=== PATIENT | male | born 1945 | race Caucasian/White ===

== ENCOUNTER → 2019-09-22 12:16 | Outpatient (CLI) | payer MEDICARE, SELFPAY ==
--- NOTE | ~2019-09-22 | XR_ITS ---
XR lumbar spine 2-3V DATE: 09/22/2019 13:04 INDICATION: Low back pain TECHNIQUE: AP, lateral and coned lateral lumbosacral views COMPARISON: None FINDINGS: Diffuse osteopenia. No fracture or dislocation. The lumbar and lower thoracic pedicles are intact. No fracture or bone destruction. There is severe degenerative disc disease at L4-5 and L5-S1. Abdominal aortic calcification without apparent aneurysm. Surgical clips are noted in the mid to uppe r medial right abdomen. The sacroiliac joints are normal. IMPRESSION: Severe degenerative disc disease at L4-5 and L5-S1 Reviewed, dictated and finalized at location B.
--- NOTE | ~2019-09-22 | XR_ITS ---
XR hip BI 2V w AP pelvis 09/22/2019 13:04 Indication: Hip pain Procedure: AP pelvis and 2 views of each hip Comparison: No prior studies for comparison. Findings: Pelvic rings are intact. Moderate lower lumbar spondylosis, partially visualized. There is mild osteoarthritis of the hips. Sacral foramen are symmetric. No significant soft tissue abnormality . Impression: 1: Mild osteoarthritis of the hips. Reviewed, dictated and finalized at location A. Impression: 1: Mild osteoarthritis of the hips.
== END ==
PROVIDERS: PCP Family Medicine; Visit Provider Physician Assistant
DX: M16.0 Bilateral primary osteoarthritis of hip (principal); M51.36 Other intervertebral disc degeneration, lumbar region; M51.37 Other intervertebral disc degeneration, lumbosacral region
CPT/HCPCS: 72100; 73521

== ENCOUNTER 2020-04-22 12:21 | Inpatient (IN) | payer MEDICARE, SELFPAY ==
--- NOTE | ~2020-04-22 | US_ITS ---
EXAMINATION: US carotid duplex BI DATE: 04/23/2020 09:39 INDICATION: Dizziness TECHNIQUE: Grayscale, color Doppler, and pulsed Doppler images of the cervical carotid arteries were obtained. The degree of vessel stenosis is placed in one of the following categories: normal, <50%, 5 0-69%, >=70% but less than near-occlusion, near-occlusion, or total occlusion. Note that percent sten osis relative to normal distal artery lumen diameter is indirectly measured from velocity measurement s as described by Dagoberto, et al. Radiology 2003; 229:340-346. COMPARISON: None. FINDINGS: RIGHT: The right common carotid artery (CCA) peak systolic velocity (PSV) is 93 cm/s. The right internal car otid artery (ICA) PSV is 57 cm/s. The right ICA end-diastolic velocity (EDV) is 17 cm/s. The right IC A/CCA PSV ratio is 0.6. Grayscale and color Doppler images yield an estimate of <50% diameter reducti on from plaque in the ICA. The external carotid artery (ECA) PSV is 94 cm/s. There is antegrade flow in the right vertebral artery. LEFT: The left CCA PSV is 111 cm/s. The left ICA PSV is 92 cm/s. The left ICA EDV is 28 cm/s. The left ICA/ CCA PSV ratio is 0.8. Grayscale and color Doppler images yield an estimate of <50% diameter reduction from plaque in the ICA. The ECA PSV is 81 cm/s. There is antegrade flow in the left vertebral artery . IMPRESSION: 1. <50% stenosis in the right internal carotid artery. 2. <50% stenosis in the left internal carotid artery. Reviewed, dictated and finalized at location A.
--- NOTE | ~2020-04-22 | CT_ITS ---
EXAMINATION: CT brain wo con EXAM DATE: 04/22/2020 13:58 INDICATION: Dizziness, weakness, nausea. TECHNIQUE: Spiral CT of the head was performed without contrast. Axial, coronal and sagittal images were reviewed. The dose-length product (DLP) for this examination was 605.33 mGy-cm. The exposure w as tailored according to patient size, and iterative reconstruction (ASIR) was used as additional dos e reduction technique. There is no prior study for comparison. FINDINGS: There is no acute intraparenchymal hemorrhage. No evidence of intraparenchymal brain mass lesion. No evidence of acute infarction. There is no mass effect or midline shift. The ventricles are normal in size. There are no extra-axial collections. There are no acute calvarial fractures. T he orbits are unremarkable. Soft tissue is unremarkable. The visualized sinuses and mastoid air kaushal ls are well aerated. IMPRESSION: 1. No acute intracranial findings. Reviewed, dictated and finalized at location B.
--- NOTE | ~2020-04-22 | XR_ITS ---
XR chest 1V portable DATE: 04/22/2020 13:55 INDICATION: Dizziness, bradycardia TECHNIQUE: Portable upright AP chest on 04/22/2020 at 1334 hours COMPARISON: 08/28/2007 two-view chest FINDINGS: Heart size is likely within normal range considering magnification/with AP projection. Ther e is aortic tortuosity. No hilar or mediastinal enlargement. There is slight elevation left leaf of diaphragm compared to and suggestion of minimal atelec tasis or infiltrate at the left lung base, mild blunting of left costophrenic angle. Otherwise no pulmonary consolidation, pleural effusion, pulmonary venous congestion, adenopathy or pn eumothorax is evident. IMPRESSION: Minimal atelectasis or infiltrate at left lung base, possible minimal left pleural effusi on Reviewed, dictated and finalized at location A. IMPRESSION: Minimal atelectasis or infiltrate at left lung base, possible minim al left pleural effusion
[2020-04-22 12:24] VITALS: BP 147/71; PULSE 50; RESP 20; TEMP 36.2; O2SAT 100
--- NOTE | 2020-04-22 12:32 | ED.DIZZY ---
HPI - Dizziness General Chief Complaint: Dizziness Stated Complaint: dizziness, weakness, nausea Time Seen by Provider: 04/22/20 12:32 Source: patient and family Mode of arrival: ambulatory Limitations: no limitations History of Present Illness HPI Narrative: Patient is a 74-year-old male who presents for evaluation of dizziness. Patient reports onset of dizziness approximately 48 hours ago. Patient states that he noticed he was dizzy on Sunday morning, was driving to a massage appointment, dizziness was worsened with movement. Patient was able to complete his massage appointment, stated he was feeling slightly improved but did feel dizzy on the drive home. Patient denies any vision changes, numbness or weakness. Patient states then nausea and vomiting developed Sunday evening into Sunday, and patient has had decreased oral intake since that time. He states he is feeling increasingly weak. He has been able to tolerate some oral intake such as breakfast this morning. Patient reports dizziness continues to be worsened with movement. Describes as an unsteady sensation. Denies any chest pain or palpitations. Denies any history of heart problems. No syncope or loss of consciousness. Related Data Home Medications Medication Instructions Recorded Confirmed aspirin 325 mg tablet 325 mg PO DAILY 06/05/19 02/17/20 finasteride 5 mg tablet 5 mg PO DAILY 06/05/19 02/17/20 sildenafil (pulm.hypertension) 20 100 mg PO DAILY PRN tablet 06/05/19 02/17/20 mg tablet tamsulosin 0.4 mg capsule 0.4 mg PO DAILY 06/05/19 02/17/20 Allergies Allergy/AdvReac Type Severity Reaction Status Date / Time No Known Drug Allergies Allergy Unknown Verified 04/22/20 13:06 NKDA Allergy Unknown NO ALLERGY Uncoded 06/09/19 10:11 Review of Systems Review of Systems: Narrative: CONSTITUTIONAL: Denies fever, chills EYES: Denies visual changes ENT: Denies rhinorrhea, congestion, sore throat, or otalgia. CARDIOVASCULAR: Denies chest pain, palpitations RESPIRATORY: Denies cough or dyspnea. GASTROINTESTINAL: Denies abdominal pain, reports nausea and vomiting GENITOURINARY: Denies dysuria or hematuria. SKIN: Denies rash or itching. MUSCULOSKELETAL: Denies back pain, joint pain, or myalgia. NEUROLOGIC: Denies headache, numbness, or weakness. [facility] Past Medical History Medical History (Updated 04/22/20 @ 14:44 by Valentina Gilliam MD) Cancer of kidney (~1996) Hepatitis C antibody test negative (~01/01/17) Surgical History Surgical History History of kidney removal (~1996) Family History Family History Grandparent Hypertension Family history of coronary artery disease Mother Family history of elevated blood lipids Father Family history of cardiovascular disease Family history of coronary artery disease Sibling Cerebrovascular accident Family history of lung cancer Family history of coronary artery disease Other Acute myocardial infarction Social History Social History Smoking status: Never smoker Alcohol intake: current Exam Narrative: Exam Narrative: GENERAL: Awake, alert, conversant HEAD: Normocephalic, atraumatic. EYES: PERRLA and EOMI, no nystagmus. ENT: Nares clear, no rhinorrhea or epistaxis. Mucous membranes moist. NECK: Supple. CHEST: No respiratory distress, breathing even and non labored HEART: Bradycardic rate, sinus rhythm ABDOMEN:Non distended, non tender EXTREMITIES: Normal range of motion. No edema. SKIN: Warm, dry, no rash. NEURO:No focal deficits. Alert and oriented x3. Finger to nose intact bilaterally. EOMs intact without nystagmus. No facial droop/asymmetry noted bilaterally. Grimace intact. Intact sensation in face. Hearing intact bilaterally. Shoulder shrug intact. Strength 5/5 bilateral upper extremities. Strength 5/5 bilateral
--- NOTE | 2020-04-22 12:37 | ECG_ITS ---
Measurements Intervals [place] Rate: 51 P: 102 NV: 302 QRS: -4 QRSD: 152 T: -1 QT: 413 QTc: 384 Interpretive Statements SINUS BRADYCARDIA WITH FIRST DEGREE AV BLOCK VENTRICULAR PREMATURE COMPLEX RIGHT BUNDLE BRANCH BLOCK BASELINE ARTIFACT- I, III ABNORMAL ECG Electronically Signed On 04-22-2020 13:01:49 CDT by Cosme Silverman D.O.
[2020-04-22] MEDS: MECLIZINE HCL 25 MG TABLET PO (13:21)
[2020-04-22] MEDS: ONDANSETRON INJ 4 MG/2 ML VIAL IV PUSH (13:21)
[2020-04-22] MEDS: SODIUM CHLORIDE 0.9% IV 1,000 ML 999 ML IV CONT (13:21)
[2020-04-22 13:26] LABS: Basophils Absolute Auto 0.1 K/mm3 (0.0-0.1); Basophils Percent Auto 0.6 % (0.2-1.2); Eosinophils Percent Auto 0.5 % (0-4.4); Hematocrit 49.4 % (42.0-52.0); Hemoglobin 16.6 g/dL (14.0-18.0); Immature Granulocyte Absolute 0.02 K/mm3 (0.00-0.031); Immature Granulocyte Percent A 0.2 % (0-0.5); Lymphocytes Absolute Auto 1.44 K/mm3 (0.9-3.2); Mean Corpuscular HGB Conc 33.6 g/dl (32-36); Mean Corpuscular Hemoglobin 29.1 pg (26-34); Mean Corpuscular Volume 86.7 fl (80-100); Mean Platelet Volume 12.1 fl (7.4-10.4); Monocytes Absolute Auto 0.7 K/mm3 (0.1-0.6); Monocytes Percent Auto 8.6 % (2.6-8.5); Neutrophils Absolute Auto 6.2 K/mm3 (1.3-6.7); Neutrophils Percent Auto 73.1 % (45.5-73.1); Platelet Count Result 152 k/mm3 (150-375); Red Cell Distribution Width 13.3 % (11.5-14.5); White Blood Count 8.5 K/mm3 (4.5-10.0)
[2020-04-22 13:39] LABS: INR 1.1; Partial Thromboplastin Time 30.2 SECONDS (22.3-36.8); Prothrombin Time 14.1 Seconds (11.1-14.7)
[2020-04-22 13:43] LABS: Alanine Aminotransferase 18 U/L (4-50); Albumin Level 3.9 g/dL (3.5-5.1); Alkaline Phosphatase 108 U/L (38-126); Anion Gap 9 mmol/L (8-16); Aspartate Amino Transferase 35 U/L (17-59); Blood Urea Nitrogen 24 mg/dL (9-20); Calcium 9.3 mg/dL (8.4-10.2); Carbon Dioxide 25 mmol/L (22-30); Chloride 106 mmol/L (98-107); Estimated CRCL calculation 53 ml/min; Estimated Glomerular Filt Rate 59; Glucose 123 mg/dL (75-110); Sodium 140 mmol/L (137-145)
[2020-04-22 13:54] LABS: Troponin I < 0.012 ng/mL (0.000-0.034)
[2020-04-22 15:05] LABS: Add Urine Microscopic? NO; Appearance Urine Clear (Clear); Bilirubin Urine Negative (Negative); Blood Urine Negative (Negative); Color Urine Yellow (Yellow); Glucose Urine UA Negative (Negative); Ketones Urine Negative (Negative); Leukocyte Esterase Ur Negative LEU/UL (Negative); Nitrate Urine Negative (Negative); Protein Urine Negative (Negative); Specific Grav Ur 1.021 (1.001-1.035); Urobilinogen Urine Negative mg/dL (<2.0)
[2020-04-22 15:12] VITALS: BP 133/53; PULSE 53; RESP 18; O2SAT 100
--- NOTE | 2020-04-22 17:08 | ADMGEN ---
This patient, Jose Baxter, was admitted to IMU Room 214-01 at 1708. Patient/family oriented to hospital policies and general routines including ID bracelet, bed and alarms, visiting hours, pain management, procedures, bathroom and other care routines, personal items, smoking policy, room service/diet, and visiting hours. Valuables list has been completed. Information on how to activate the Rapid Response Team has been discussed. Patient/Family are encouraged to report perceived risks to care and to ask questions if they do not understand what they are told or what they should do.
[2020-04-22 18:00] VITALS: PULSE 66
--- NOTE | 2020-04-22 18:08 | WPDCN ---
Assessment and Plan Assessment and plan (1) Dizziness: Code(s): R42 - Dizziness and giddiness Status: Acute Assessment and Plan: Although this is not typical vertigo, it sounds like some type of benign positional vertigo. I doubt it is related to his ventricular bigeminy, PVCs, or mild bradycardia. Neuro or ENT consult? Meclizine? (2) Frequent PVCs: Code(s): I49.3 - Ventricular premature depolarization Status: Acute Assessment and Plan: Looks like patient has a long history of frequent PVCs dating back to an EKG I located from 2005. I think he has asymptomatic PVCs and the PVCs are an incidental finding. Potassium was normal. However frequent PVCs can cause left ventricular dysfunction and is worth looking at an echocardiogram to evaluate. He does not appear to have any symptoms of CAD. (3) Bradycardia: Code(s): R00.1 - Bradycardia, unspecified Status: Acute Assessment and Plan: Mild bradycardia noted, doubt symptomatic. HPI Data of Consult Date/Time: 04/22/20 18:08 Requesting Physician: Gene Hayes MD Primary Care Provider: Rukhsana Lee DO Consult Narrative Narrative: Date of service: 04/22/2020 Jose Baxter is a 74 year old male Was asked to see at the request of the hospitalist for my advice and opinion regarding his intermittent bradycardia and dizziness, in consultation. The patient started having dizziness 2 days ago, On Sunday, worsened with movement. he did not feel any spinning Or typical vertigo,but was dizzy when he turns his head or bent over and had to hold onto furniture to walk. He started having nausea and vomiting as well as weakness. He felt unsteady. things got worse over the next couple of days and a [place] had anything to eat so he started feeling weak as well. He came to the emergency room for evaluation. No syncope, loss of consciousness or falls. The ER MD thought this may be benign positional vertigo. However, he was noted to have Frequent PVCs and some bigeminy in the emergency room with heart rates briefly dropping down into the 20-50 range and subsequently admitted for further evaluation. The ER physician did note that the patient did not seem symptomatic when he was in bigeminy but simply sitting. He is feeling better since he had IV fluids and was able to eat a real meal this evening. The patient says he has been told he has had an irregular heartbeat in the past but has never felt any palpitations, dizziness or syncope. Review of old records shows that he saw Dr. yoandy marshall in 207 for some postop AFib treated with sotalol. That was discontinued and he had rare APCs and PVCs. No chest pain, or shortness of breath. He is able to walk is rescue dog Santiago (part baig retriever) a couple miles a day with no problems. The patient's mother was my patient before she . Review of Systems Constitutional: Constitutional: Reports anorexia ENT: Denies epistaxis Cardiovascular: Cardiovascular: Denies chest pain at rest, Denies chest pain with activity, Reports irregular heart rhythm, Denies leg edema, Denies lightheadedness, Denies palpitations and Denies dyspnea Respiratory: Respiratory: Denies chest congestion, Denies cough and Denies dyspnea on exertion Gastrointestinal: Gastrointestinal: Denies abdominal pain, Denies hematochezia, Reports nausea and Reports vomiting Musculoskeletal: Musculoskeletal: Reports no additional musculoskeletal complaints Integumentary/Breasts: Skin/Breast: Denies lesions Neurologic: Denies Neuro-related abnormal movements, Denies Abnormal speech present, Reports vertigo and Reports dizziness Psychiatric: Psychiatric: Reports no ad
--- NOTE | 2020-04-22 19:49 | PM.IMHP ---
H&P: HPI History of Present Illness Date/Time: 04/22/20 19:49 Chief complaint: ARRHYTHMIA,DIZZINESS Narrative: This is a pleasant 74 year old male with known BPH and previous renal cell carcinoma in 1996 who presented to the hospital with a complaint of intermittent dizziness since Sunday. The patient went and saw his massage therapist an afterwards he drove home and got dizzy. While he was at home on Sunday he became very nauseated and vomited 3 times. He denies any diarrhea or stomach pain. The patient noticed that any movement or exertion lead to more dizziness. The following day he felt a little better but today he started to feel dizzy again. He reports that he has had a hard time with oral intake as he has been feeling nauseated. He also reports a 7 lb loss of weight since Sunday. He believes that he is dehydrated. He denies any associated chest pain or shortness of breath. He also denies any fevers, chills, cough, palpitations, abdominal pain, dysuria, hematuria, back pain, rectal bleeding, black stools, diarrhea, or leg swelling. The patient was evaluated emergency room and found to have a 1st degree AV block on his EKG which is new to him. His heart rate initially was in the 30s in the ER tonight. He denies starting or stopping any recent medications and he is not known to be on any Class 2 antiarrhythmic drugs. The patient denies actually passing out and also denies any recent seizure-like activity or focal neurological symptoms. His initial troponin was negative and EKG that was obtained in the emergency room demonstrated a first-degree AV heart block with a right bundle branch block morphology. Cardiology has been consulted by ER provider and we have been asked to admit the patient to the hospital for further care. Review of Systems Review of Systems: All systems reviewed & are unremarkable except as noted in HPI and below PMFSH Past Medical History Medical History BPH (benign prostatic hyperplasia) Cancer of kidney (~1996) DVT (deep venous thrombosis) Hepatitis C antibody test negative (~01/01/17) Surgical History Surgical History History of kidney removal (~1996) Family History Family History Grandparent Hypertension Family history of coronary artery disease Mother Family history of elevated blood lipids Pacemaker Father Family history of cardiovascular disease Family history of coronary artery disease Sibling Cerebrovascular accident Family history of lung cancer Family history of coronary artery disease Other Acute myocardial infarction Social History Social History Social History: Patient is and has a rescue dog named Santiago. 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 Smoking status: Never smoker Alcohol intake: never Substance use: never Gender identity (if verbalized by the patient): Male Spiritual care concerns: No Meds Home Medications and Allergies Home Medications Medication Instructions Recorded Confirmed Type aspirin 325 mg tablet 325 mg PO DAILY 06/05/19 04/22/20 History finasteride 5 mg tablet 5 mg PO DAILY 06/05/19 04/22/20 History tamsulosin 0.4 mg capsule 0.4 mg PO DAILY 06/05/19 04/22/20 History Allergies Allergy/AdvReac Type Severity Reaction Status Date / Time No Known Drug Allergies Allergy Unknown Unknown Verified 04/22/20 16:45 NKDA Allergy Unknown NO ALLERGY Uncoded 04/22/20 16:45 Vital Signs Vital Signs - 24 hr 04/22/20 12:24 04/22/20 15:12 04/22/20 18:00 Temperature 36.2 C L Pulse Rate 50 L 53 L 66 Respiratory Rate 20 18 Blood Pressure 147/71 H 133/53 L Pulse Oximetry 100 100 Exam Const:
[2020-04-22 20:00] VITALS: BP 133/58; PULSE 58; PULSE 63; RESP 18; TEMP 36; O2SAT 100
[2020-04-22] MEDS: SODIUM CHLORIDE 0.9% IV 1,000 ML 100 ML IV CONT (20:24)
[2020-04-22 22:00] VITALS: PULSE 48
[2020-04-22 23:52] VITALS: BP 112/58; PULSE 52; RESP 18; TEMP 36.1; O2SAT 98
[2020-04-23] VITALS (21 sets, daily range): BP systolic 108–132; BP diastolic 51–72; PULSE 38–75; RESP 16–20; TEMP 36.1–36.4; O2SAT 93–98
--- NOTE | 2020-04-23 | ECHO_ITS ---
Patient Info Name: Jose Baxter Age: 74 years : 1945 Gender: Male Ht: 72 in Wt: 209 lbs BSA: 2.21 m2 HR: 46 bpm Heart Rhythm: Sinus Rhythm Technical Quality: Good Exam Date: 04/23/2020 11:11 AM Exam Location: [facility] Patient Status: Outpatient Admit Date: 04/22/2020 BP unable to obtain due to: IV Staff Ordering Physician: Lila Nuñez MD Stablehand: Luis Howe, TWILA, RT Attending Provider: Gene Hayes MD Referring Physician: Savannah ANN; Exam Type: CA echo doppler color flow Study Info Indications R55 - Syncope and collapse Complete two-dimensional, color flow and Doppler transthoracic echocardiogram is performed. Strain analysis performed. Summary 1. Complete two-dimensional, color flow and Doppler transthoracic echocardiogram is performed. 2. Left ventricular chamber dimension is normal. 3. Left ventricular systolic function is normal, estimated at 55-60%. 4. There is mildly increased left ventricular wall thickness. 5. The left ventricular diastolic function is grade I diastolic dysfunction. 6. Global longitudinal strain is abnormal at -16 %. 7. Right ventricular chamber dimension is moderately enlarged. 8. Left atrial chamber dimension is mildly enlarged. 9. Right atrial chamber dimension is mildly enlarged. 10. There is mild aortic valve regurgitation. 11. There is mild mitral valve regurgitation. 12. There is mild tricuspid valve regurgitation. 13. There is mild pulmonic regurgitation. 14. Type 2 second degree AVB noted during exam. 15. Strain analysis performed. Left Ventricle Left ventricular chamber dimension is normal. Left ventricular systolic function is normal, estimated at 55-60%. There is mildly increased left ventricular wall thickness. The left ventricular diastolic function is grade I diastolic dysfunction. Global longitudinal strain is abnormal at -16 %. Right Ventricle Right ventricular chamber dimension is moderately enlarged. Right ventricular systolic function is normal. Left Atria Left atrial chamber dimension is mildly enlarged. Right Atria Right atrial chamber dimension is mildly enlarged. Atrial Septum Intact interatrial septum visualized by color flow imaging. Aortic Valve The aortic valve is trileaflet. There is mild aortic valve sclerosis. There is no aortic valve stenosis. There is mild aortic valve regurgitation. Pulmonic Valve The pulmonic valve is normal. There is no pulmonic valve stenosis. There is mild pulmonic regurgitation. Mitral Valve The mitral valve has normal leaflets. There is no mitral valve stenosis. There is mild mitral valve regurgitation. Tricuspid Valve The tricuspid valve leaflets are normal. There is no significant tricuspid valve stenosis. There is mild tricuspid valve regurgitation. No pulmonary hypertension, estimated pulmonary arterial systolic pressure is 34 mmHg. Other Findings Type 2 second degree AVB noted during exam. Pericardium/Pleural The pericardium appears normal. There is no pericardial effusion. Inferior Vena Cava Normal inferior vena cava with >50% collapse upon inspiration consistent with normal right atrial pressure, 5 mmHg. Aorta The aortic root size at the sinus of Valsalva is normal. The prox ascending aorta size is normal. Left Ventricular Outflow Tract Name Value
[2020-04-23 05:40] LABS: Basophils Absolute Auto 0.1 K/mm3 (0.0-0.1); Basophils Percent Auto 0.9 % (0.2-1.2); Eosinophils Absolute Auto 0.1 K/mm3 (0-0.3); Eosinophils Percent Auto 1.6 % (0-4.4); Hematocrit 42.2 % (42.0-52.0); Hemoglobin 13.8 g/dL (14.0-18.0); Immature Granulocyte Absolute 0.02 K/mm3 (0.00-0.031); Immature Granulocyte Percent A 0.3 % (0-0.5); Immature Platelet Fraction Pct 5.5 % (0.9-11.2); Lymphocytes Absolute Auto 1.87 K/mm3 (0.9-3.2); Lymphocytes Percent Auto 27.9 % (18.3-44.2); Mean Corpuscular HGB Conc 32.7 g/dl (32-36); Mean Corpuscular Hemoglobin 28.8 pg (26-34); Mean Corpuscular Volume 88.1 fl (80-100); Mean Platelet Volume 11.9 fl (7.4-10.4); Monocytes Absolute Auto 0.7 K/mm3 (0.1-0.6); Monocytes Percent Auto 9.7 % (2.6-8.5); Neutrophils Percent Auto 59.6 % (45.5-73.1); Platelet Count Result 119 k/mm3 (150-375); Red Blood Count 4.79 M/mm3 (4.6-6.20); Red Cell Distribution Width 13.1 % (11.5-14.5); White Blood Count 6.7 K/mm3 (4.5-10.0)
[2020-04-23 06:09] LABS: Anion Gap 6 mmol/L (8-16); Blood Urea Nitrogen 21 mg/dL (9-20); Calcium 8.3 mg/dL (8.4-10.2); Carbon Dioxide 25 mmol/L (22-30); Chloride 109 mmol/L (98-107); Estimated CRCL calculation 53 ml/min; Estimated Glomerular Filt Rate 59; Glucose 92 mg/dL (75-110); Magnesium 1.9 mg/dL (1.6-2.3); Potassium 3.9 mmol/L (3.4-5.0); Sodium 140 mmol/L (137-145)
[2020-04-23 06:16] LABS: Troponin I < 0.012 ng/mL (0.000-0.034)
[2020-04-23] MEDS: SODIUM CHLORIDE 0.9% IV 1,000 ML 100 ML IV CONT (06:47)
[2020-04-23] MEDS: ASPIRIN 325 MG TABLET PO (10:17)
--- NOTE | 2020-04-23 11:46 | PM.PNCARD ---
Progress Note: A&P Assessment and Plan (1) Dizziness: Code(s): R42 - Dizziness and giddiness Status: Acute Assessment and Plan: Although this is not typical vertigo, it sounds like some type of benign positional vertigo. Doubt it is related to his ventricular bigeminy, PVCs, or mild bradycardia. Neurology has been consulted. He received a Liter of fluids in the emergency room. He has had IV fluids running at 100 cc/hour since admission. Thus far has gotten 2500 cc. DC IV fluids. Orthostatic blood pressures checked. Not orthostatic. (2) Frequent PVCs: Code(s): I49.3 - Ventricular premature depolarization Status: Acute Assessment and Plan: Looks like he has a long history of frequent PVCs dating back to an EKG located from 2005. He has asymptomatic PVCs and the PVCs are an incidental finding. Potassium was normal. However frequent PVCs can cause left ventricular dysfunction and is worth looking at an echocardiogram to evaluate. He does not appear to have any symptoms of CAD. Echo with EF 55%. No wall motion abnormalities. No significant valvular abnormalities.Reviewed (3) Bradycardia: Code(s): R00.1 - Bradycardia, unspecified Status: Acute Assessment and Plan: Mild bradycardia noted unsure if this is causing his symptoms EKG personally reviewed from 04/22/2020 reveals sinus bradycardia with first-degree AV block with HI interval 302 milliseconds.. Ventricular premature contraction. Right bundle branch block. 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 Again unsure if this is causing his symptoms or is another incidental finding. There continues to be a long first-degree AV block with noted second-degree AV block. This is what is causing his heart rate to drop into the 30s. Denied any syncope or presyncope. Pacemaker to be considered either as inpatient or outpatient. Additional Plan Plan discussed with Dr Bruno 1740 07/24/2019 Subjective Date/time seen: 04/23/20 11:46 Interval history: Follow-up for: Dizziness, PVCs, bradycardia. Date of service: 04/23/2020 Subjective: Feeling better. No longer nauseated or vomiting. Ate a little breakfast this morning. No longer dizzy. Denied chest discomfort, shortness of breath or palpitations. Review of Systems Constitutional: Constitutional: Reports anorexia ENT: Reports Normal hearing present, Denies vertigo, Denies dizziness and Denies epistaxis Cardiovascular: Cardiovascular: Denies chest pain at rest, Denies chest pain with activity, Denies irregular heart rhythm, Denies leg edema, Denies lightheadedness, Denies palpitations, Denies dyspnea and Denies dyspnea on exertion Respiratory: Respiratory: Denies chest congestion, Denies cough, Denies dyspnea and Denies dyspnea on exertion Gastrointestinal: Gastrointestinal: Denies abdominal pain, Denies hematochezia, Denies nausea and Denies vomiting Musculoskeletal: Musculoskeletal: Denies back pain and Denies arthralgias Integumentary/Breasts: Skin/Breast: Denies lesions Neurologic: Reports Normal hearing present, Denies Abnormal speech present, Denies confusion, Denies vertigo, Denies dizziness and Reports other ( Difficulty with balance) Psychiatric: Psychiatric: Denies anxiety, Denies confusion and Denies depression Endocrine: Endocrine: Denies palpitations Allergic/Immunologic: Allergic/Immunologic: Denies lip swelling and Denies tongue swelling Exam Narrative: Exam Narrative: Laying comfortably flat in bed after his echocardiogram. No distressed. at bedside Const: General: cooperative, healthy appearing, comfortable and no acute distress; No confusion Orientation/consciousness: patient oriented x3 and No confusion HENMT: Head: normal to inspection Ears: hearing grossly normal bilaterally and external ears normal
--- NOTE | 2020-04-23 12:59 | WPDNEURCNPN ---
Assessment and Plan Assessment and plan (1) 2nd degree atrioventricular block: Code(s): I44.1 - Atrioventricular block, second degree Status: Acute (2) Bradycardia: Code(s): R00.1 - Bradycardia, unspecified Status: Acute (3) Frequent PVCs: Code(s): I49.3 - Ventricular premature depolarization Status: Acute (4) Arrhythmia: Qualifiers: Arrhythmia type: other cardiac arrhythmia Qualified Code(s): I49.8 - Other specified cardiac arrhythmias Code(s): I49.9 - Cardiac arrhythmia, unspecified Status: Acute (5) Dizziness: Code(s): R42 - Dizziness and giddiness Status: Acute (6) Cervical spondylosis without myelopathy: Code(s): M47.812 - Spondylosis without myelopathy or radiculopathy, cervical region Status: Chronic (7) Prediabetes: Code(s): R73.03 - Prediabetes Status: Chronic Additional Plan continue treatment as discussed ,no additional intervention Consult date: 04/24/20 Time Seen: 12:59 HPI: Jose Baxter is a 74 year old male admitted to the hospital with the complaints of recurrent dizziness with underlying arrhythmia in addition to comorbid condition of 1. Benign prostatic hypertrophy 2. Renal cell carcinoma diagnosed in 1996. patient reportedly saw his massage therapist, drove home and became extremely dizzy ,subsequently with nausea and vomiting x3 without associated any other GI symptomatology. Any movement made the dizziness worse. He was having extreme difficulties with p.o. intake. He gave no history of associated chest pain or difficulty in breathing or any fever or chills. In the emergency room he was found to have first-degree AV block on EKG and her initial heart rate was in the 30s, troponins were negative ,cardiology team was consulted in the ER, who suggested to admit him. Patient does have a history of nephrectomy 1996. Evaluation up until now includes the routine lab which are normal, Doppler study of the carotidwith less than 50% stenosis bilaterally, and echocardiogram pending. As per the the hat former, frequent PVCs are of long duration and according to them these are incidental finding but the echocardiogram is being done to rule out the possibility of left ventricular dysfunction Review of Systems Review of Systems: All systems reviewed & are unremarkable except as noted in HPI and below PMFSH Past Medical History Medical History BPH (benign prostatic hyperplasia) Cancer of kidney (~1996) DVT (deep venous thrombosis) Hepatitis C antibody test negative (~01/01/17) Surgical History Surgical History History of kidney removal (~1996) Family History Family History Grandparent Hypertension Family history of coronary artery disease Mother Family history of elevated blood lipids Pacemaker Father Family history of cardiovascular disease Family history of coronary artery disease Sibling Cerebrovascular accident Family history of lung cancer Family history of coronary artery disease Other Acute myocardial infarction Social History Social History Social History: Patient is and has a rescue dog named Santiago. 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 Smoking status: Never smoker Alcohol intake: never Substance use: never Gender identity (if verbalized by the patient): Male Spiritual care concerns: No Meds Home Medications and Allergies Home Medications Medication Instructions Recorded Confirmed Type aspirin 325 mg tablet 325 mg PO DAILY 06/05/19 04/22/20 History finasteride 5 mg tablet 5 mg PO DAILY 06/05/19 04/22/20 History tamsulosin 0.4 m
--- NOTE | 2020-04-23 15:47 | ECG_ITS ---
Measurements Intervals [place] Rate: 44 P: DE: 0 QRS: -31 QRSD: 161 T: -10 QT: 434 QTc: 372 Interpretive Statements SINUS BRADYCARDIA WITH SECOND DEGREE AV BLOCK, TYPE II LEFT AXIS DEVIATION RIGHT BUNDLE BRANCH BLOCK BASELINE ARTIFACT- II, III ABNORMAL ECG Electronically Signed On 04-23-2020 17:26:43 CDT by Cosme Silverman D.O.
--- NOTE | 2020-04-23 19:05 | PM.IMPN ---
Progress Note: A&P Assessment and Plan (1) BPH (benign prostatic hyperplasia): Qualifiers: Lower urinary tract symptom presence: unspecified whether lower urinary tract symptoms present Qualified Code(s): N40.0 - Benign prostatic hyperplasia without lower urinary tract symptoms Code(s): N40.0 - Benign prostatic hyperplasia without lower urinary tract symptoms Status: Chronic (2) 2nd degree atrioventricular block: Code(s): I44.1 - Atrioventricular block, second degree Status: Acute (3) Frequent PVCs: Code(s): I49.3 - Ventricular premature depolarization Status: Acute (4) Dizziness: Code(s): R42 - Dizziness and giddiness Status: Acute (5) Symptomatic bradycardia: Code(s): R00.1 - Bradycardia, unspecified Status: Acute Additional Plan 1. Dizziness from 2nd degree AV block vs symptomatic bradycardia with frequent PVC -Cardiology consulted, EKG showed second-degree AV block, telemetry showed 2.5 second pause which may explain his symptoms if they are correlated, which would indicate pacemaker. It is unclear if the symptoms are correlated - echocardiogram shows enlarged RV - carotid duplex negative - neurology consulted who believes this is not a neurological issue and to evaluate cardiac - Tylenol for headache - Zofran for nausea -does not appear to be orthostatic 2. benign prostatic hyperplasia - restarting finasteride and tamsulosin, not orthostatic Diet: Heart Healthy DVT prophylaxis: SCDs Code status: Full code Time Spent With Patient Time with patient: 15 - 25 minutes Subjective Date/time seen: 04/23/20 19:05 Pt examined bedside. He states he is not dizzy but feels unstead on his feet when he walks. Even when he has his eyes closed he feels that way. When he sits and watches TV there are no symptoms. He denies any weakness or fatigue. He is nearsighted but no change to his vision. He states he always had a slow heart rate. His symptoms are not reproduced when moving his head around while seated. Echocardiogram and carotid duplex ordered for today. Cardiology and neurology consulted. Review of Systems Review of Systems: All systems reviewed & are unremarkable except as noted in HPI and below Neurologic: Reports abnormal gait and Reports disequilibrium Exam Narrative: Exam Narrative: - GENERAL: No acute distress. Well-nourished. - EYES: EOMI. Anicteric. - HENT: Moist mucous membranes. No scleral icterus. TM clear bilaterally, no bulging, no fluid - LUNGS: Clear to auscultation bilaterally, no wheezing, rhonchi, or rales. - CARDIOVASCULAR:helen rate and rhythm. No JVD. - ABDOMEN: Soft, non-tender and non-distended. No palpable masses. - EXTREMITIES: No edema. Peripheral pulses 2+. Non-tender. - NEUROLOGIC: No focal neurological deficits. CN II-XII grossly intact. Gait is unsteady, needing to hold onto things as he walks and turns. No change in symptoms if eyes are closed. Negative romberg. heel to asif intact. - PSYCHIATRIC: Awake, Alert and oriented x 3. Appropriate mood and affect. - SKIN: No rashes or lesions. Warm. - LYMPH: No cervical lymphadenopathy. Objective Data Vital Signs Vital Signs: Vital Signs - 24 hr 04/22/20 20:00 04/22/20 22:00 04/22/20 23:52 Temperature 36.0 C L 36.1 C L Pulse Rate 58 L 48 L 52 L Respiratory Rate 18 18 Blood Pressure 133/58 L 112/58 L Pulse Oximetry 100 98 04/23/20 00:00 04/23/20 02:00 04/23/20 03:41 Temperature Pulse Rate 68 48 L 47 L Respiratory Rate 18 Blood Pressure Pulse Oximetry 98 04/23/20 04:00 04/23/20 06:00 04/23/20 08:56 Temperature 36.1 C L 36.2 C L Pulse Rate 52 L 51 L 48 L Respiratory Rate 16 20 Blood Pressure 108/51 L 117/64 Pulse Oximetry 93 96 04/23/20 10:00 04/23/20 12:16 04/23/20 12:32 Temperature 36.1 C L 36.1 C L Pulse Rate 55 L 43 L 38 L Respiratory Rate 20 18 Blood Pressure 110/65 116/64 Pulse Oximetry 96 98 04/23/20 12:34 04/23/20
[2020-04-23] MEDS: BISACODYL 10 MG SUPPOSITORY RECTAL (21:54)
[2020-04-24] VITALS (15 sets, daily range): BP systolic 88–134; BP diastolic 54–69; PULSE 46–75; RESP 14–16; TEMP 36.3–36.9; O2SAT 96
--- NOTE | 2020-04-24 09:19 | PM.DS ---
DS: Admitting Diagnosis Admitting Diagnosis Admitting Diagnosis: ARRHYTHMIA,DIZZINESS DS: Discharge Diagnosis Discharge Diagnosis (1) Dizziness: Code(s): R42 - Dizziness and giddiness Status: Acute Assessment and Plan: Presumed vestibular origin Continue symptomatic treatment (2) 2nd degree atrioventricular block: Code(s): I44.1 - Atrioventricular block, second degree Status: Acute Assessment and Plan: F/u with Dr. Nuñez for further discussion regarding elective pacemaker insertion (3) Bradycardia: Code(s): R00.1 - Bradycardia, unspecified Status: Acute Assessment and Plan: May be contributing to his symptomology (4) JACQUES (obstructive sleep apnea): Code(s): G47.33 - Obstructive sleep apnea (adult) (pediatric) Status: Acute Assessment and Plan: SEVERE by Apnea[facility] Further outpatient evaluation with his PCP, Dr. Lee (5) Frequent PVCs: Code(s): I49.3 - Ventricular premature depolarization Status: Acute Assessment and Plan: Chronic (6) Chronic kidney disease, stage 3: Qualifiers: Chronic kidney disease stage 3 subtype: unspecified whether 3a or 3b Qualified Code(s): N18.30 - Chronic kidney disease, stage 3 unspecified Code(s): N18.3 - Chronic kidney disease, stage 3 (moderate) Status: Chronic Assessment and Plan: stable (7) Gastroesophageal reflux disease without esophagitis: Code(s): K21.9 - Gastro-esophageal reflux disease without esophagitis Status: Chronic Assessment and Plan: Continue PPI (8) Prediabetes: Code(s): R73.03 - Prediabetes Status: Chronic Assessment and Plan: Continue healthy diet and low impact exercise DS: Summary Hospital Course Reason for hospitalization: Dizziness with associated nausea vomiting Hospital Course: patient was admitted with dizziness associated nausea vomiting. He was found to be bradycardic with first-degree AV block and right bundle-branch block and intermittent dropped beats consistent with second-degree AV block of the non-Wenkeboch type. He described his dizziness as a floating or lightheaded or off-balance feeling. He denied any vertigo. However movement of the head did seem to aggravate it. This did improve a bit. He had 2 episodes of vomiting on the day of admission. The nausea and vomiting improved. Vomiting resolved. Dizziness was better. He was tolerating his diet. He did receive IV fluids upon admission as he had not been eating and drinking much in the days prior to admission. His telemetry continued to show intermittent second-degree AV block. He had heart rates in the 20s to 30s at times but was asymptomatic with this. He was seen by cardiology who felt that a pacemaker could be placed electively. He was also seen by Neurology. CT of the brain was unrevealing. He was treated symptomatically for his dizziness And nausea. This was presumed to be of peripheral neurologic origin. During his hospitalization he had an apnea link which showed severe sleep disordered breathing. He was to follow-up on this as an outpatient. He was to see Dr. magdaleno during the upcoming week for further discussion of pacemaker insertion. In the meantime he was to continue on a heart healthy diet and follow fall precautions. Time Spent with Patient Time attestation: Total time spent providing and/or coordinating discharge services: Time spent: Greater than 30 minutes Exam Narrative: Exam Narrative: HEENT: EOMI, PERRL, sclerae nonicteric, pharyngeal mucosa pink and intact NECK: No JVD, adenopathy, or thyromegaly CHEST: Clear to auscultation. Normal effort. HEART: NL S1/S2, regular, no murmur ABDOMEN: BS+, soft, nontender, no mass, no bruits EXTREMITIES: No cyanosis, edema, or clubbing NEUROLOGIC: CN intact and symmetric to inspection. FTN intact. Romberg negative. MUSCULOSKELETAL: Tone and strength
[2020-04-24] MEDS: PROMETHAZINE HCL 25 MG/ML AMPUL 12.5 MG IV PUSH (09:24)
[2020-04-24] MEDS: FINASTERIDE 5 MG TABLET PO (10:07)
[2020-04-24] MEDS: TAMSULOSIN HCL 0.4 MG CAPSULE PO (10:07)
--- NOTE | 2020-04-24 13:01 | PM.PNCARD ---
Progress Note: A&P Assessment and Plan (1) Dizziness: Code(s): R42 - Dizziness and giddiness Status: Acute Assessment and Plan: cannot directly be attributed to his rhythm or heart rate. Check orthostatics. Symptoms more likely to be secondary to this given positional change. He does not make stents his heart rate and/or rhythm contributes to the symptoms when he gets up with a good intermittent his heart rate in sinus rhythm. I do not feel strongly a pacemaker at this time will change the symptoms. Doubt it is related to his ventricular bigeminy, PVCs, or mild bradycardia. May require additional IV fluids prior to discharge Pending orthostatics. If not orthostatic patient may be discharged home to follow up as scheduled as an outpatient. He will communicate with our office early next week for further recommendations. If near-syncope, syncope present back to the ER immediately. Advised to avoid strenuous activity, ensure adequate hydration, rise slowly from seated position to avoid risk for falls and injuries. (2) Frequent PVCs: Code(s): I49.3 - Ventricular premature depolarization Status: Acute Assessment and Plan: Looks like he has a long history of frequent PVCs dating back to an EKG located from 2005. He has asymptomatic PVCs and the PVCs are an incidental finding. Potassium was normal. Echo with EF 55%. No wall motion abnormalities. No significant valvular abnormalities.Reviewed (3) Bradycardia: Code(s): R00.1 - Bradycardia, unspecified Status: Acute Assessment and Plan: He clearly has conduction system disease. He has severe obstructive sleep apnea as indicated by apnea link overnight. Needs outpatient sleep study referral [facility]. Mild bradycardia would not be expected to cause his symptoms as he notes them regardless of his heart rate appears to more associated with position. EKG personally reviewed from 04/22/2020 reveals sinus bradycardia with first-degree AV block with UT interval 302 milliseconds.. Ventricular premature contraction. Right bundle branch block. engine monitor with Longest pauses after PVC but not pathologic in and of themselves. There continues to be a long first-degree AV block with noted second-degree AV block. This is what is causing his heart rate to drop into the 30s. Denied any syncope or presyncope. Pacemaker to be considered either as inpatient or outpatient. Additional Plan Plan discussed with Dr Bruno [id number] 07/24/2019 Subjective Date/time seen: Date of service: 04/24/20 13:01 Interval history: Follow-up for: Dizziness, PVCs, bradycardia. Subjective: Feeling better With still dizzy and somewhat nauseous when he gets up and moves around. Has baseline mild nausea at rest as well. No emesis. Feels well enough to go home. Eating fine. Heart rate stable in the 50s sinus rhythm at rest goes up to the 80s with activity. Review of telemetry does not indicate type 2 second-degree AV block past 24 hours. Questionable brief episode of 2-1 av block initially after admission. Occasional ventricular bigeminy. I do appreciate mild UT lengthening suggestive of type 1 second-degree AV block Ate breakfast this morning. No longer dizzy. No chest discomfort, shortness of breath or palpitations. Review of Systems Constitutional: Constitutional: Reports anorexia ENT: Reports Normal hearing present, Denies vertigo, Denies dizziness, Denies lip swelling, Denies epistaxis and Denies tongue swelling Cardiovascular: Cardiovascular: Denies chest pain at rest, Denies chest pain with activity, Denies irregular heart rhythm, Denies leg edema, Denies lightheadedness, Denies palpitations, Denies dyspnea and Denies dyspnea on exertion Respiratory: Respiratory: Denies chest congestion, Denies cough, Denies dyspnea and Denie
[2020-04-24] MEDS: SODIUM CHLORIDE 0.9% IV 500 ML 250 ML IV CONT (14:35)
[2020-04-24] MEDS: SODIUM CHLORIDE 0.9% IV 500 ML IV CONT (18:24)
== END 2020-04-24 19:45 | disposition home or self-care (01) | DRG 149 ==
LOC: ANHED 14:44 → ANHIMU 16:58
PROVIDERS: Family Medicine; Admitting Provider Family Medicine; Emergency Provider Emergency Medicine; PCP Family Medicine; Visit Provider Internal Medicine
DX: R42 Dizziness and giddiness (principal); R11.2 Nausea with vomiting, unspecified; I44.1 Atrioventricular block, second degree; I49.3 Ventricular premature depolarization; R00.1 Bradycardia, unspecified; Z23 Encounter for immunization; G47.33 Obstructive sleep apnea (adult) (pediatric); K21.9 Gastro-esophageal reflux disease without esophagitis; N40.0 Benign prostatic hyperplasia without lower urinary tract symptoms; N18.30 Chronic kidney disease, stage 3 unspecified; R73.03 Prediabetes; I45.10 Unspecified right bundle-branch block; M47.812 Spondylosis without myelopathy or radiculopathy, cervical region; Z85.528 Personal history of other malignant neoplasm of kidney; Z90.5 Acquired absence of kidney; Z86.718 Personal history of other venous thrombosis and embolism
CPT/HCPCS: 36415; 70450; 71045; 80048; 80053; 81003; 83735; 84443; 84484; 85025; 85055; 85610; 85730; 90471; 90653; 93005; 93306; 93880; 94762; 96361; 96374; 99285; A9270; G0008; G0378; J2405; J2550; J7030; J7040

== ENCOUNTER 2020-05-04 11:57 | Inpatient (IN) | payer MEDICARE, SELFPAY ==
--- NOTE | ~2020-05-04 | CT_ITS ---
EXAMINATION: CTA chest PE protocol DATE: 05/04/2020 13:37 INDICATION: Shortness of breath TECHNIQUE: Computed tomography angiography (CTA) of the chest was performed with 100 mL Omnipaque-350 intravenous contrast timed to evaluate the pulmonary arteries. Coronal maximum intensity projection 3D-reconstructions were created by the technologist. The dose-length product (DLP) was 578.02 mGy-cm. Automated exposure control and iterative reconstruction technique were employed. COMPARISON: None. FINDINGS: The pulmonary arteries are well-opacified. Although slightly limited by respiratory motion artifact. Emboli are seen in subsegmental and subsegmental branches of the left upper lobe, left lowe r lobe, and right lower lobe. There is mild dependent atelectasis. No pleural effusion or pneumothora x is identified. Cardiomegaly is noted. There is calcified coronary artery atherosclerosis. There are no pathologically enlarged thoracic lymph nodes. There are changes of right nephrectomy and adrenale ctomy. There is moderate thoracic spondylosis. IMPRESSION: 1. Acute pulmonary emboli in the left upper lower lobes as well as the right lower lobe. These findin gs were discussed with franky in the Emergency Department at 1346 hours on 05/04/2020. Reviewed, dictated and finalized at location A. IMPRESSION: 1. Acute pulmonary emboli in the left upper lower lobes as well as the right lo wer lobe. These findings were discussed with franky in the Emergency Departmen t at 1346 hours on 05/04/2020.
--- NOTE | ~2020-05-04 | MR_ITS ---
EXAMINATION: MR brain/brain stem wo/w con DATE: 05/05/2020 10:51 INDICATION: Vertigo. TECHNIQUE: Magnetic resonance imaging (MRI) of the brain and brainstem was performed without and with 20 mL MultiHance intravenous contrast. Sequences included sagittal and axial T1-weighted FSE, axial diffusion-weighted FS EPI, axial T2*-weighted GRE, axial T2-weighted FLAIR Propeller, and axial T2-we ighted Propeller. Postcontrast sequences included axial and coronal T1-weighted FSE. Apparent diffusi on coefficient (ADC) maps were created. COMPARISON: Head CT 04/22/2020 FINDINGS: There are scattered areas of nonspecific increased T2-weighted signal intensity in the cere bral white matter, which is within normal limits for the patient's age. There is no intracranial hemo rrhage, acute infarction, or abnormal intracranial mass lesion. The ventricles are normal in size. Th ere are no pathologically enlarged lymph nodes. The paranasal sinuses are clear. The mastoid air cell s are normal. IMPRESSION: 1. Normal aging brain. Reviewed, dictated and finalized at location A. IMPRESSION: 1. Normal aging brain.
--- NOTE | ~2020-05-04 | US_ITS ---
EXAMINATION: US venous doppler [facility] DATE: 05/04/2020 13:02 INDICATION: Left lower limb pain and swelling TECHNIQUE: Tinsley scale images without and with compression and Doppler images of the left lower extrem ity veins were obtained. COMPARISON: None FINDINGS: There is thrombosis in the left common femoral vein, profunda femoral vein, femoral vein, p opliteal vein, peroneal trunk, posterior tibial veins, and greater saphenous vein. IMPRESSION: 1. Deep venous thrombosis throughout the visualized left lower limb veins. These findings were discussed with DEYANIRA Negron in the Emergency Department at 1310 hours on . Reviewed, dictated and finalized at location A. IMPRESSION: 1. Deep venous thrombosis throughout the visualized left lower limb veins. These findings were discussed with [facility]A [facility]gr[facility] at 1310 hours on 05/04/2020.
[2020-05-04 12:03] VITALS: BP 140/88; PULSE 77; RESP 18; TEMP 36.5; O2SAT 99
[2020-05-04 12:32] LABS: Basophils Absolute Auto 0.1 K/mm3 (0.0-0.1); Basophils Percent Auto 0.5 % (0.2-1.2); Eosinophils Absolute Auto 0.1 K/mm3 (0-0.3); Eosinophils Percent Auto 1.5 % (0-4.4); Hematocrit 46.3 % (42.0-52.0); Hemoglobin 15.5 g/dL (14.0-18.0); Immature Granulocyte Absolute 0.04 K/mm3 (0.00-0.031); Immature Granulocyte Percent A 0.4 % (0-0.5); Lymphocytes Absolute Auto 1.15 K/mm3 (0.9-3.2); Lymphocytes Percent Auto 12.5 % (18.3-44.2); Mean Corpuscular HGB Conc 33.5 g/dl (32-36); Mean Corpuscular Hemoglobin 29.4 pg (26-34); Mean Corpuscular Volume 87.9 fl (80-100); Mean Platelet Volume 12.1 fl (7.4-10.4); Monocytes Absolute Auto 0.8 K/mm3 (0.1-0.6); Monocytes Percent Auto 8.4 % (2.6-8.5); Neutrophils Absolute Auto 7.1 K/mm3 (1.3-6.7); Neutrophils Percent Auto 76.7 % (45.5-73.1); Platelet Count Result 138 k/mm3 (150-375); Red Blood Count 5.27 M/mm3 (4.6-6.20); Red Cell Distribution Width 13.1 % (11.5-14.5); White Blood Count 9.2 K/mm3 (4.5-10.0)
--- NOTE | 2020-05-04 12:32 | ED.GENADULT ---
HPI - General Adult General Chief complaint: Extremity Problem,Nontraumatic Stated complaint: spot on left leg Time Seen by Provider: 05/04/20 12:04 Source: patient and family Mode of arrival: ambulatory Limitations: no limitations History of Present Illness HPI narrative: Patient is a 74-year-old male who presents to emergency department for evaluation of left inner thigh pain swelling and slight erythema patient notes history of factor V Leiden and has concern for DVT symptoms have been present for 4 days patient has been on bedrest after experiencing lightheadedness which was evaluated a week prior and is being managed by cardiology patient had echocardiogram last week and other studies and has been resting during cardiology's evaluation of his dizziness that is new in onset in the last week. Patient notes similar occurrence in the past. Patient otherwise in no distress upon arrival does not appear ill, Related Data Home Medications Medication Instructions Recorded Confirmed finasteride 5 mg tablet 5 mg PO DAILY 06/05/19 04/27/20 tamsulosin 0.4 mg capsule 0.4 mg PO DAILY 06/05/19 04/27/20 Allergies Allergy/AdvReac Type Severity Reaction Status Date / Time No Known Drug Allergies Allergy Unknown Unknown Verified 04/27/20 10:20 Review of Systems Review of Systems: All systems reviewed & are unremarkable except as noted in HPI and below PMFSH Past Medical History Medical History BPH (benign prostatic hyperplasia) Cancer of kidney (~1996) DVT (deep venous thrombosis) Hepatitis C antibody test negative (~01/01/17) Surgical History Surgical History History of kidney removal (~1996) Family History Family History Grandparent Hypertension Family history of coronary artery disease Mother Family history of elevated blood lipids Pacemaker Father Family history of cardiovascular disease Family history of coronary artery disease Sibling Cerebrovascular accident Family history of lung cancer Family history of coronary artery disease Other Acute myocardial infarction Social History Social History Social History: Patient is and has a rescue dog named Santiago. 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 Smoking status: Never smoker Alcohol intake: never Substance use: never Gender identity (if verbalized by the patient): Male Spiritual care concerns: No Exam Narrative: Exam Narrative: GENERAL: Well-appearing, well-nourished, and in no acute distress. HEAD: Normocephalic, atraumatic. EYES: PERRLA and EOMI. ENT: Nares clear, no rhinorrhea or epistaxis. Mucous membranes moist. CHEST: Clear to auscultation. No respiratory distress. No wheezes rales or rhonchi HEART: Regular rate and rhythm. No murmur heard. Normal peripheral pulses. ABDOMEN: Soft, nontender, nondistended EXTREMITIES: Normal range of motion. No edema. Palpable cord with erythema and tenderness along the medial aspect of the left thigh from just above the knee to the groin SKIN: Warm, dry, no rash. NEURO: No focal deficits. Alert and oriented x3. Neurovascularly intact. Capillary refill less than 2 seconds PSYCH: Normal mood and affect. Course Course Emergency Course: Patient in the room at this time aware of case findings treatment plan and diagnosis heparin was initiated the vascular specialist was contacted as well as hospitalist who will manage the patient patient will be placed in hospital patient hemodynamically stable as noted was hydrated and given heparin and we placed on a medical telemetry floor Consultations Consultation #1: Spoke with vascular specialist Dr. Copeland and the hospitalist
[2020-05-04 12:41] LABS: INR 1.1; Partial Thromboplastin Time 36.5 SECONDS (22.3-36.8); Prothrombin Time 14.1 Seconds (11.1-14.7)
[2020-05-04 12:42] LABS: Anion Gap 7 mmol/L (8-16); Blood Urea Nitrogen 27 mg/dL (9-20); Calcium 9.1 mg/dL (8.4-10.2); Carbon Dioxide 27 mmol/L (22-30); Chloride 103 mmol/L (98-107); Estimated CRCL calculation 49 ml/min; Estimated Glomerular Filt Rate 54; Glucose 150 mg/dL (75-110); Potassium 4.4 mmol/L (3.4-5.0); Sodium 137 mmol/L (137-145)
[2020-05-04] MEDS: SODIUM CHLORIDE 0.9% IV 500 ML 999 ML IV CONT (13:06)
[2020-05-04] MEDS: HEPARIN SOD/D5W 100 UNITS/ML 25,000 UNITS/250 ML BAG 15 UNITS IV CONT (14:00)
[2020-05-04] MEDS: HEPARIN SODIUM 5,000 UNITS/ML VIAL 7000 UNITS IV PUSH (14:04)
[2020-05-04 14:08] VITALS: BP 124/61; PULSE 56; RESP 20; O2SAT 97
--- NOTE | 2020-05-04 15:26 | ADMGEN ---
This patient, Jose Baxter, was admitted to Medical Room 342-01. Patient/family oriented to hospital policies and general routines including ID bracelet, bed and alarms, visiting hours, pain management, procedures, bathroom and other care routines, personal items, smoking policy, room service/diet, and visiting hours. Information on how to activate the Rapid Response Team has been discussed. Patient/Family are encouraged to report perceived risks to care and to ask questions if they do not understand what they are told or what they should do.
[2020-05-04 15:32] VITALS: BP 144/92; PULSE 58; RESP 18; TEMP 35.9; O2SAT 99; BMI 29.7
--- NOTE | 2020-05-04 15:35 | PM.CNCAR ---
Assessment and Plan Assessment and plan (1) Pulmonary emboli: Code(s): I26.99 - Other pulmonary embolism without acute cor pulmonale Status: Acute Assessment and Plan: Patient is a 74 year-old man with history of DVT (2006, left leg), Factor V Leiden, frequent PVCs (noted originally 2005), severe apnea (on Apnea Link, awaiting sleep study), CKD, who is seen in cardiac consultation for left leg pain, with left leg DVT and bilateral pulmonary emboli. -patient is a patient of [facility] and Dr. Copeland was asked to consult by ER specifically to address his presenting thromboembolic disease from the vascular perspective. -continue initially on IV heparin. -This admission, LE venous Doppler with DVT throughout the visualized left lower limb veins. He had CTA chest with acute pulmonary emboli in the left upper and lower lobes as well as the right lower lobe. -given extensive left leg DVT, pending clinical response to IV heparin, consider thrombectomy with Inari procedure. -obtain echo to evaluate for right heart strain. -initial troponin I negative for injury. Patient denies chest pain or dyspnea. -PE does not require EKOS procedure as PE is not submassive. (2) Left leg DVT: Code(s): I82.402 - Acute embolism and thrombosis of unspecified deep veins of left lower extremity Status: Acute Assessment and Plan: -with history of recurrent DVT, new PE, and Factor V Leiden, anticipate need for chronic anticoagulation. -continue initially on IV heparin. -given extensive left leg DVT, pending clinical response to IV heparin, consider thrombectomy with Inari procedure (3) Gait instability: Code(s): R26.81 - Unsteadiness on feet Status: Acute Assessment and Plan: -He denies dizziness but reports gait imbalance in recent weeks. -He had carotid U/S 04/23/20: < 50% stenosis bilateral ICA. -Consider additional outpatient neurology, ENT, and PT evaluation. -Monitor on telemetry, consistent with his history of chronic PVCs, revealing frequent PVCs and couplets. -Obtain EKG. -CT revealed calcified coronary artery atherosclerosis, suggesting need for outpatient ischemic evaluation pending resolution of PE. History of Present Illness History of Present Illness Consult date/time: 05/04/20 15:35 Patient is a 74 year-old man with history of DVT (2007, left leg), Factor V Leiden, frequent PVCs (noted originally 2006), severe apnea (on Apnea Link, awaiting sleep study), CKD, who is seen in cardiac consultation for left leg pain, with left leg DVT and bilateral pulmonary emboli. Patient is a patient of the [facility] and Dr. Copeland was asked to consult by ER specifically to address his presenting thromboembolic disease from the vascular perspective. Patient reports a several day history of left leg pain and edema. He reports decreased activity in the last 1-2 weeks with imbalance with walking. He denies dizziness, syncope, palpitations, chest pain, dyspnea, orthopnea, or PND. He denies any history of CHF, ND, or valvular heart disease. This admission, LE venous Doppler with DVT throughout the visualized left lower limb veins. He had CTA chest with acute pulmonary emboli in the left upper and lower lobes as well as the right lower lobe. Recently, he had echo 04/23/2020: 1. Complete two-dimensional, color flow and Doppler transthoracic echocardiogram is performed. 2. Left ventricular chamber dimension is normal. 3. Left ventricular systolic function is normal, estimated at 55-60%. 4. There is mildly increased left ventricular wall thickness. 5. The left ventricular diastolic function is grade I diastolic dysfunction. 6. Global longitudinal strain is abnormal at -16 %. 7. Right ventricular chamber dimension is moderately enlarged. 8. Left atrial chamber dimension is mildly enlarged. 9. Right atrial chamber dimension is mildly enlarged. 10. There is mild aortic valve regurgitation. 11. There
[2020-05-04 16:00] VITALS: PULSE 68
--- NOTE | 2020-05-04 19:00 | PM.IMHP ---
H&P: HPI History of Present Illness Date/Time: 05/04/20 19:00 Chief complaint: Left leg pain and swelling. Narrative: Jose Baxter is a very pleasant 74-year-old male with history of factor V Leiden, DVT, renal cell carcinoma, chronic kidney disease stage 3, GERD, presumed obstructive sleep apnea, and benign prostatic hyperplasia who presented to the emergency department earlier today for evaluation of pain and swelling in his left leg. He is known to the hospitalist service and was admitted to us about 2 weeks ago after presenting with lightheadedness/dizziness as well as nausea and vomiting. At that time he was found to be in second-degree AV block with frequent PVCs, and it was thought that perhaps the bradycardia may be playing a part in his symptomatology however the vertigo was felt to be more likely vestibular in etiology. He was seen in consult by Cardiology and is following up with them as an outpatient, and fact just turned in his Holter monitor today. His nausea and vomiting have resolved but he still has vertigo, mainly with walking. Also during that stay he had an apnea link which was suspicious for severe sleep apnea and in fact he has a sleep study on Sunday. In any regard about 3 days ago he noticed some discomfort in a varicose vein of his left upper thigh. Since that time he has had progressive pain and swelling in that leg for which he came in for evaluation. He was found to have an extensive left lower extremity DVT and a subsequent chest CTA revealed bilateral pulmonary emboli and he is being admitted in this setting. He has no symptoms with regards to his pulmonary emboli and specifically denies chest pain, pleuritic pain, and shortness of breath. No syncope or near syncope. He denies nausea and vomiting. He is not sedentary and in fact he typically walks his dog 2 and half to 3 miles per day however over the past couple of weeks they have not been walking as much due to his vertigo. Review of Systems Review of Systems: Narrative: Twelve systems were reviewed with pertinent positives and negatives as per HPI. No fever, chills, or sweats. He denies sinus congestion, rhinorrhea, otalgia, and odynophagia. No focal weakness or paresthesias. He denies acute auditory and visual changes. He has noticed that his vision has become a bit worse over the last couple of months in believes he is probably due for a new prescription. No diarrhea and in fact he has not had regular stools for about a week or so which she attributes to not being able to walk and he is requesting a stool softener. Except as documented, all other systems were reviewed and are negative. [facility] Past Medical History Medical History (Updated 05/04/20 @ 23:06 by Trinidad Biswas PA-C) Benign prostatic hyperplasia Cancer of right kidney (~1996) Status post nephrectomy. Chronic kidney disease, stage 3 Baseline creatinine is between 1.20 and 1.30. Deep vein thrombosis of left lower limb 2006 and 2019. Factor V Leiden mutation Gastroesophageal reflux disease Suspected sleep apnea Apnea link in April 2020 showed evidence of severe sleep apnea. He is scheduled for an upcoming outpatient sleep study. Surgical History Surgical History (Updated 05/04/20 @ 23:00 by Trinidad Biswas PA-C) History of arthroscopy of right knee History of right nephrectomy (1996) For renal cell carcinoma. Family History Family History Grandparent Hypertension Family history of coronary artery disease Mother Family history of elevated blood lipids Pacemaker Father Family history of cardiovascular disease Family history of coronary artery disease Sibling Cerebrovascular accident Family history of lung cancer Family history of coronary artery disease Other Acute myocardial infarction Social History Social History (Updated 05/04/20 @ 23:02 by Trinidad Biswas PA-C) Social History: [employer] [facility]
[2020-05-04 20:00] VITALS: PULSE 65
[2020-05-04 20:07] VITALS: BP 119/69; PULSE 64; RESP 18; TEMP 36.2; O2SAT 99
[2020-05-04 22:07] LABS: INR 1.2; Prothrombin Time 15.3 Seconds (11.1-14.7)
[2020-05-04] MEDS: FINASTERIDE 5 MG TABLET PO (22:14)
[2020-05-04] MEDS: TAMSULOSIN HCL 0.4 MG CAPSULE PO (22:14)
[2020-05-04 23:41] LABS: Partial Thromboplastin Time > 200.0 SECONDS (22.3-36.8)
[2020-05-05] VITALS (9 sets, daily range): BP systolic 111–129; BP diastolic 62–67; PULSE 60–91; RESP 16; TEMP 36.3–37.3; O2SAT 97–98
[2020-05-05] MEDS: DOCUSATE SODIUM 100 MG CAPSULE PO ×2 (05:34→21:14)
--- NOTE | 2020-05-05 07:00 | ECHOL_ITS ---
Patient Info Name: Jose Baxter Age: 74 years : 1945 Gender: Male Ht: 72 in Wt: 219 lbs BSA: 2.27 m2 HR: 63 bpm BP: 111 / 67 mmHg Heart Rhythm: Sinus Rhythm Technical Quality: Good Exam Date: 05/05/2020 1:38 PM Exam Location: [facility] Card Pulmonary Patient Status: Inpatient Admit Date: 05/05/2020 Staff Ordering Physician: Richard Garay MD Electric Meter Reader: Luis Howe RDCS, RT Attending Provider: Kenrick Mackey PA-C Referring Physician: Jarrod SANDS; Exam Type: CA echo limited Study Info Indications I26.99 - Other pulmonary embolism without acute cor pulmonale Limited two-dimensional transthoracic echocardiogram is performed. Summary 1. Right ventricular chamber dimension is upper limits of normal. 2. Thin and hypermobile. 3. No pulmonary hypertension, estimated pulmonary arterial systolic pressure is 29 mmHg. 4. Normal inferior vena cava with >50% collapse upon inspiration consistent with normal right atrial pressure, 5 mmHg. 5. Left ventricular systolic function is normal, estimated at 55-60%. 6. Global longitudinal strain is mildly elevated at -16 %. 7. Right atrial chamber dimension is mildly enlarged. 8. There is mild mitral valve regurgitation. 9. There is mild tricuspid valve regurgitation. 10. Right ventricular systolic function is normal. Left Ventricle Left ventricular chamber dimension is normal. Left ventricular systolic function is normal, estimated at 55-60%. Global longitudinal strain is mildly elevated at -16 %. Right Ventricle Right ventricular chamber dimension is upper limits of normal. Right ventricular systolic function is normal. Left Atria Left atrial chamber dimension is normal. Right Atria Right atrial chamber dimension is mildly enlarged. Atrial Septum Thin and hypermobile. Aortic Valve The aortic valve is trileaflet. There is no aortic valve regurgitation. Pulmonic Valve The pulmonic valve is not well visualized. There is mild pulmonic regurgitation. Mitral Valve The mitral valve has normal leaflets. There is mild mitral valve regurgitation. The mitral valve annulus is mildly calcified. Tricuspid Valve No pulmonary hypertension, estimated pulmonary arterial systolic pressure is 29 mmHg. The tricuspid valve leaflets are normal. There is mild tricuspid valve regurgitation. Pericardium/Pleural The pericardium appears normal. There is no pericardial effusion. Inferior Vena Cava Normal inferior vena cava with >50% collapse upon inspiration consistent with normal right atrial pressure, 5 mmHg. Aorta The aortic root size at the sinus of Valsalva is normal. There is mild aortic atherosclerosis. Pulmonic Valve Name Value Normal PV Doppler PV Peak Gradient 5 mmHg Tricuspid Valve Name Value Normal TV Regurgitation Doppler TR Peak Velocity 244 cm/s TR Peak Gradient 20 mmHg Estimated PAP/RSVP -
--- NOTE | 2020-05-05 07:00 | ECG_ITS ---
Measurements Intervals [place] Rate: 83 P: 87 MN: 297 QRS: -37 QRSD: 147 T: 20 QT: 374 QTc: 440 Interpretive Statements SINUS RHYTHM WITH FIRST DEGREE AV BLOCK VENTRICULAR PREMATURE COMPLEXES LEFT AXIS DEVIATION RIGHT BUNDLE BRANCH BLOCK ABNORMAL ECG Electronically Signed On 05-05-2020 9:06:14 CDT by Cosme Silverman D.O.
[2020-05-05 07:10] LABS: Anion Gap 8 mmol/L (8-16); Blood Urea Nitrogen 21 mg/dL (9-20); Calcium 8.6 mg/dL (8.4-10.2); Carbon Dioxide 25 mmol/L (22-30); Chloride 104 mmol/L (98-107); Estimated CRCL calculation 49 ml/min; Estimated Glomerular Filt Rate 54; Glucose 106 mg/dL (75-110); Potassium 4.4 mmol/L (3.4-5.0); Sodium 137 mmol/L (137-145)
[2020-05-05 07:11] LABS: Hematocrit 42.3 % (42.0-52.0); Hemoglobin 14.4 g/dL (14.0-18.0); Mean Corpuscular Volume 85.3 fl (80-100); Mean Platelet Volume 11.6 fl (7.4-10.4); Platelet Count Result 143 k/mm3 (150-375); Red Blood Count 4.96 M/mm3 (4.6-6.20); White Blood Count 8.6 K/mm3 (4.5-10.0)
[2020-05-05 07:26] LABS: INR 1.2; Prothrombin Time 14.5 Seconds (11.1-14.7)
[2020-05-05 07:29] LABS: Partial Thromboplastin Time 68.5 SECONDS (22.3-36.8)
[2020-05-05] MEDS: HEPARIN SODIUM 5,000 UNITS/ML VIAL 3500 UNITS IV PUSH (07:50)
[2020-05-05] MEDS: HEPARIN SOD/D5W 100 UNITS/ML 25,000 UNITS/250 ML BAG 14 UNITS IV CONT (09:23)
[2020-05-05] MEDS: ASPIRIN 81 MG ENTERIC TABLET PO (09:25)
--- NOTE | 2020-05-05 11:09 | PM.PNCARD ---
Progress Note: A&P Assessment and Plan (1) Pulmonary emboli: Code(s): I26.99 - Other pulmonary embolism without acute cor pulmonale Status: Acute Assessment and Plan: Patient is a 74 year-old man with history of DVT (2006, left leg), Factor V Leiden, frequent PVCs (noted originally 2005), severe apnea (on Apnea Link, awaiting sleep study), CKD, who is seen in cardiac consultation for left leg pain, with left leg DVT and bilateral pulmonary emboli. -patient is a patient of the [facility] and Dr. Copeland was asked to consult by ER specifically to address his presenting thromboembolic disease from the vascular perspective. -continue initially on IV heparin. -This admission, LE venous Doppler with DVT throughout the visualized left lower limb veins. He had CTA chest with acute pulmonary emboli in the left upper and lower lobes as well as the right lower lobe. -given extensive left leg DVT, pending clinical response to IV heparin, consider thrombectomy with Inari procedure. -obtain echo to evaluate for right heart strain. -initial troponin I negative for injury. Patient denies chest pain or dyspnea. -PE does not require EKOS procedure as PE is not submassive. (2) Left leg DVT: Code(s): I82.402 - Acute embolism and thrombosis of unspecified deep veins of left lower extremity Status: Acute Assessment and Plan: -with history of recurrent DVT, new PE, and Factor V Leiden, anticipate need for chronic anticoagulation. -continue initially on IV heparin. -given extensive left leg DVT, pending clinical response to IV heparin, consider thrombectomy with Inari procedure, he seems to be clinically better today, but will continue to measure the upper left thigh, for improvement of the size, if he continued to have significant improvement then will switch him to Eliquis and continue with treated medically. If we see signs of obstruction, or worsening swelling then would consider thrombectomy. I spent some time discussing the findings with him, and discussed the plan, he seems to have good understanding and he agreed with the plan (3) Gait instability: Code(s): R26.81 - Unsteadiness on feet Status: Acute Assessment and Plan: -He denies dizziness but reports gait imbalance in recent weeks. -He had carotid U/S 04/23/20: < 50% stenosis bilateral ICA. -Consider additional outpatient neurology, ENT, and PT evaluation. -Monitor on telemetry, consistent with his history of chronic PVCs, revealing frequent PVCs and couplets. -Obtain EKG. -CT revealed calcified coronary artery atherosclerosis, suggesting need for outpatient ischemic evaluation pending resolution of PE. Subjective Date/time seen: 05/05/20 11:09 patient is being seen for vascular evaluation and follow-up due to history of DVT he feels better today, leg swelling is better, pain is better, I measured the left thigh at the upper portion and its 22 in, the right eye is 19-1/2 inches. Currently he is on heparin. he had history of DVT in the past, and was on Coumadin, but for some reason he was switched to aspirin full dose few years back by his primary care doctor Exam Narrative: Exam Narrative: Exam Narrative: GENERAL: Well-appearing, well-nourished, and in no acute distress. HEAD: Normocephalic, atraumatic. EYES: PERRLA and EOMI. ENT: Nares clear, no rhinorrhea or epistaxis. Mucous membranes moist. CHEST: Clear to auscultation. No respiratory distress. No wheezes rales or rhonchi HEART: Regular rate and rhythm. No murmur heard. Normal peripheral pulses. ABDOMEN: Soft, nontender, nondistended EXTREMITIES: Normal range of motion. No edema. Palpable cord with erythema and tenderness along the medial aspect of the left thigh from just above the knee to the groin, 1-2+ edema left leg; left leg with erythema and warmth. SKIN: Warm, dry, no rash. NEURO: No focal deficits. Alert and oriented x3. Neurovascularly intact. Capillary refill less than 2
--- NOTE | 2020-05-05 13:21 | PM.IMPN ---
Progress Note: A&P Assessment and Plan (1) Left leg DVT: Code(s): I82.402 - Acute embolism and thrombosis of unspecified deep veins of left lower extremity Status: Acute Assessment and Plan: The patient has been admitted to hospitalist service for further treatment of extensive left lower extremity DVT as well as bilateral pulmonary emboli. He has been started on heparin drip due to the extent of his left leg DVT. He is quite asymptomatic with regards to the pulmonary embolism. Dr. Copeland consulted from ED and appreciate recommendations; discussed with Dr. Copeland and he feels swelling is clinically improving with heparin drip; he is okay with ambulation Continue heparin drip for now; likely transition to Eliquis tomorrow if continued improvement or if swelling stable Monitor for improvement Start PT/OT, remove bed rest order (2) Bilateral pulmonary embolism: Code(s): I26.99 - Other pulmonary embolism without acute cor pulmonale Status: Acute Assessment and Plan: No evidence of right heart strain noted on CTA chest. Cardiology has ordered echo for further evaluation. Patient appears to doing well clinically; on RA and not hypoxic. No SOB. Await results of Echo Monitor Likely transition to Eliquis tomorrow (3) Vertigo: Code(s): R42 - Dizziness and giddiness Status: Acute Assessment and Plan: MRI of brain today shows no evidence of CVA. Orthostatics appear to be negative Monitor PT/OT ordered (4) Chronic kidney disease, stage 3: Code(s): N18.30 - Chronic kidney disease, stage 3 unspecified Status: Inactive Assessment and Plan: Cr 1.30; appears to be at baseline Monitor BMP daily (5) Factor V Leiden mutation: Code(s): D68.51 - Activated protein C resistance Status: Inactive Assessment and Plan: Suspect patient will likely need a/c indefinitely of recurrence of VTE in setting of Factor V leiden. We discussed following up with PCP about length of a/c. continue treatment for VTE as above (6) Benign prostatic hyperplasia: Code(s): N40.0 - Benign prostatic hyperplasia without lower urinary tract symptoms Status: Inactive Assessment and Plan: No acute issues Continue home regimen (7) Suspected sleep apnea: Code(s): R29.818 - Other symptoms and signs involving the nervous system Status: Acute Assessment and Plan: Patient to have sleep study on Sunday. We discussed rescheduling if unable to make appointment. Subjective Date/time seen: 05/05/20 13:21 Interval history: Patient is a 74 yo M with history of factor V Leiden, DVT, renal cell carcinoma, chronic kidney disease stage 3, GERD, presumed obstructive sleep apnea, and benign prostatic hyperplasia who is seen in follow up for DVT and bilateral PEs. Patient states he feels okay today. Notes that he is weak since he has been in the hospital. He has noticed the swelling in his leg has improved. No other complaints at the moment. Denies f/c/s, cp/palpitations, pleuritic cp, sob/cough, n/v/d/c, abd pain, changes in BMs, dysuria, hematuria, cloudy urine, calf pain/swelling. Review of Systems Review of Systems: All systems reviewed & are unremarkable except as noted in HPI and below Exam Narrative: Exam Narrative: General: Patient resting supine in bed in no acute distress. in room visiting HEENT: Normocephalic, EOMI, oral mucosa moist. Cardiovascular: Rate and rhythm are regular. No notable murmur, rub, or gallop. Respiratory: Lungs clear to auscultation all amaro. Non-labored breathing. Abdomen: Soft, non-tender, non-distended, bowel sounds present although hypoactive.
[2020-05-05 13:28] LABS: Partial Thromboplastin Time 76.2 SECONDS (22.3-36.8)
[2020-05-05] MEDS: BISACODYL 10 MG SUPPOSITORY RECTAL (15:05)
[2020-05-05] MEDS: FINASTERIDE 5 MG TABLET PO (21:14)
[2020-05-05] MEDS: TAMSULOSIN HCL 0.4 MG CAPSULE PO (21:14)
[2020-05-05] MEDS: ACETAMINOPHEN 325 MG TABLET 650 MG PO (21:14)
[2020-05-06] VITALS (10 sets, daily range): BP systolic 98–120; BP diastolic 48–79; PULSE 56–84; RESP 16–18; TEMP 36.2–36.4; O2SAT 97
[2020-05-06] MEDS: HEPARIN SOD/D5W 100 UNITS/ML 25,000 UNITS/250 ML BAG 14 UNITS IV CONT (04:01)
[2020-05-06 06:21] LABS: Anion Gap 6 mmol/L (8-16); Blood Urea Nitrogen 23 mg/dL (9-20); Calcium 8.6 mg/dL (8.4-10.2); Carbon Dioxide 27 mmol/L (22-30); Chloride 104 mmol/L (98-107); Estimated CRCL calculation 46 ml/min; Estimated Glomerular Filt Rate 50; Glucose 106 mg/dL (75-110); Potassium 4.1 mmol/L (3.4-5.0); Sodium 137 mmol/L (137-145)
[2020-05-06] MEDS: ACETAMINOPHEN 325 MG TABLET 650 MG PO ×3 (06:21→22:27)
[2020-05-06 06:33] LABS: INR 1.2; Prothrombin Time 14.5 Seconds (11.1-14.7)
[2020-05-06 06:35] LABS: Partial Thromboplastin Time 90.4 SECONDS (22.3-36.8)
[2020-05-06] MEDS: ASPIRIN 81 MG ENTERIC TABLET PO (08:34)
--- NOTE | 2020-05-06 11:47 | PM.IMPN ---
Progress Note: A&P Assessment and Plan (1) Left leg DVT: Code(s): I82.402 - Acute embolism and thrombosis of unspecified deep veins of left lower extremity Status: Acute Assessment and Plan: Patient presents with left groin pain, imaging shows extensive left lower extremity DVT as well as bilateral pulmonary emboli. He was started on heparin drip due to the extent of his left leg DVT. He is quite asymptomatic with regards to the pulmonary embolism. Dr. Copeland consulted from ED and appreciate recommendations; discussed with Dr. Copeland - plan to stop heparin gtt tonight and transition to Eliquis. Swelling is improving. Continue PT. (2) Bilateral pulmonary embolism: Code(s): I26.99 - Other pulmonary embolism without acute cor pulmonale Status: Acute Assessment and Plan: No evidence of right heart strain noted on CTA chest. Patient appears to doing well clinically; on RA and not hypoxic. No SOB. Eliquis as above. Echo shows no change from recent echo 2 weeks ago. (3) Vertigo: Code(s): R42 - Dizziness and giddiness Status: Acute Assessment and Plan: MRI of brain shows no evidence of CVA. Recently admitted for same and had extensive workup. Denies symptoms today. Monitor. (4) Chronic kidney disease, stage 3: Code(s): N18.30 - Chronic kidney disease, stage 3 unspecified Status: Chronic Assessment and Plan: Cr appears at baseline per review of previous records. Monitor BMP. (5) Factor V Leiden mutation: Code(s): D68.51 - Activated protein C resistance Status: Inactive Assessment and Plan: Discussed he will likely need anticoagulation indefinitely for treatment of recurrent DVT and new PEs with Factor V Leiden mutation. (6) Benign prostatic hyperplasia: Code(s): N40.0 - Benign prostatic hyperplasia without lower urinary tract symptoms Status: Inactive Assessment and Plan: No acute issues. Continue home regimen with Flomax and Proscar. (7) Suspected sleep apnea: Code(s): R29.818 - Other symptoms and signs involving the nervous system Status: Acute Assessment and Plan: Apnea Link 2 weeks ago during recent admission is positive. He was scheduled to have sleep study tomorrow. (8) Bradycardia: Code(s): R00.1 - Bradycardia, unspecified Status: Chronic Assessment and Plan: Recently admitted 2 weeks ago due to near-syncope and feeling off-balance. He was evaluated by cardiology and found to have long 1st degree AV block with a noted second-degree AV block as well with some bradycardia into to the 30s. He has short interval follow-up with Dr. Nuñez scheduled for 05/12/20. May discuss pacer placement on outpatient basis. Subjective Date/time seen: 05/06/20 11:20 Interval history: Patient is a 74 yo M with history of factor V Leiden, DVT, renal cell carcinoma, chronic kidney disease stage 3, GERD, presumed obstructive sleep apnea, and benign prostatic hyperplasia who is seen in follow up for new extensive DVT and bilateral PEs. He is feeling okay today other than feeling tired and pretty weak. He notices his leg swelling has improved. He denies chest pain, shortness of breath, or palpitations. He is tolerating oral intake without nausea or vomiting. Review of Systems Review of Systems: All systems reviewed & are unremarkable except as noted in HPI and below Exam Narrative: Exam Narrative: General: Male resting comfortably supine in bed in no acute distress. HEENT: Normocephalic, EOMI, oral mucosa moist. Cardiovascular: Rate and rh
[2020-05-06] MEDS: DOCUSATE SODIUM 100 MG CAPSULE PO (12:15)
--- NOTE | 2020-05-06 13:44 | PM.PNCARD ---
Progress Note: A&P Assessment and Plan (1) Pulmonary emboli: Code(s): I26.99 - Other pulmonary embolism without acute cor pulmonale Status: Acute Assessment and Plan: Patient is a 74 year-old man with history of DVT (2006, left leg), Factor V Leiden, frequent PVCs (noted originally 2005), severe apnea (on Apnea Link, awaiting sleep study), CKD, who is seen in cardiac consultation for left leg pain, with left leg DVT and bilateral pulmonary emboli. -patient is a patient of the [facility] and Dr. Copeland was asked to consult by ER specifically to address his presenting thromboembolic disease from the vascular perspective. -continue initially on IV heparin. -This admission, LE venous Doppler with DVT throughout the visualized left lower limb veins. He had CTA chest with acute pulmonary emboli in the left upper and lower lobes as well as the right lower lobe. he seems to be better with heparin, will continue with medical treatment, okay to switch to Eliquis 10 twice a day for 7 days followed by 5 mg twice a day after that, he needs to stay on that indefinitely in view of history of factor 5 Leiden deficiency and history of recurrent DVT -initial troponin I negative for injury. Patient denies chest pain or dyspnea. -PE does not require EKOS procedure as PE is not submassive. his echocardiogram showed normal right ventricular size and function (2) Left leg DVT: Code(s): I82.402 - Acute embolism and thrombosis of unspecified deep veins of left lower extremity Status: Acute Assessment and Plan: -with history of recurrent DVT, new PE, and Factor V Leiden, anticipate need for chronic anticoagulation. -continue initially on IV heparin. clinically seems to be getting better, there is no obstructive symptoms now, with significant improvement of the swelling, he is okay with medical treatment only, okay to switch from heparin to Eliquis as above, he needs to stay on anticoagulation indefinitely. He needs to have a repeat venous Doppler follow-up in about 1 week, if shows no worsening of symptoms, he can follow up with Dr. 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 please call me for any other questions or inquiry (3) Gait instability: Code(s): R26.81 - Unsteadiness on feet Status: Acute Assessment and Plan: -He denies dizziness but reports gait imbalance in recent weeks. -He had carotid U/S 04/23/20: < 50% stenosis bilateral ICA. -Consider additional outpatient neurology, ENT, and PT evaluation. -Monitor on telemetry, consistent with his history of chronic PVCs, revealing frequent PVCs and couplets. -Obtain EKG. -CT revealed calcified coronary artery atherosclerosis, suggesting need for outpatient ischemic evaluation pending resolution of PE. He has an event monitor on going now, in the event that he needs a pacemaker it has to be delayed at least 3 month from the time of treatment of his DVT, unless it is an emergency in which case he has to be bridged with heparin Subjective Date/time seen: 05/06/20 13:44 follow-up on vascular with history of DVT he feels much better today, still with heaviness to the leg upon walking, measurement improved was 22 in yesterday and today is 21 in at the upper thigh. No significant shortness of breath, no chest pain Exam Narrative: Exam Narrative: Exam Narrative: GENERAL: Well-appearing, well-nourished, and in no acute distress. HEAD: Normocephalic, atraumatic. EYES: PERRLA and EOMI. ENT: Nares clear, no rhinorrhea or epistaxis. Mucous membranes moist. CHEST: Clear to auscultation. No respiratory distress. No wheezes rales or rhonchi HEART: Regular rate and rhythm. No murmur heard. Normal peripheral pulses. ABDOMEN: Soft, nontender, nondistended EXTREMITIES: Normal range of motion. No edema. Palpable cord with erythema and tenderness along the medial aspect of the left thigh from just above the knee to the groin, 1-2+ edema left leg; left leg with erythema and wa
[2020-05-06] MEDS: APIXABAN 5 MG TABLET 10 MG PO (20:03)
[2020-05-06] MEDS: FINASTERIDE 5 MG TABLET PO (20:03)
[2020-05-06] MEDS: TAMSULOSIN HCL 0.4 MG CAPSULE PO (20:03)
[2020-05-07] VITALS: PULSE 62
[2020-05-07] MEDS: DOCUSATE SODIUM 100 MG CAPSULE PO (00:15)
[2020-05-07 04:00] VITALS: PULSE 66
[2020-05-07 05:41] VITALS: BP 104/58; PULSE 62; RESP 16; TEMP 37.1; O2SAT 96
[2020-05-07 06:05] LABS: Partial Thromboplastin Time 41.5 SECONDS (22.3-36.8)
[2020-05-07 08:00] VITALS: PULSE 67
[2020-05-07] MEDS: APIXABAN 5 MG TABLET 10 MG PO (09:04)
[2020-05-07 09:09] VITALS: PULSE 68; RESP 16; O2SAT 95
--- NOTE | 2020-05-07 09:36 | PM.PNCARD ---
Progress Note: A&P Assessment and Plan (1) Pulmonary emboli: Code(s): I26.99 - Other pulmonary embolism without acute cor pulmonale Status: Acute Assessment and Plan: Patient is a 74 year-old man with history of DVT (2006, left leg), Factor V Leiden, frequent PVCs (noted originally 2005), severe apnea (on Apnea Link, awaiting sleep study), CKD, who is seen in cardiac consultation for left leg pain, with left leg DVT and bilateral pulmonary emboli. -patient is a patient of the [facility] and Dr. Copeland was asked to consult by ER specifically to address his presenting thromboembolic disease from the vascular perspective. - pt completed therapy with IV heparin. -This admission, LE venous Doppler with DVT throughout the visualized left lower limb veins. He had CTA chest with acute pulmonary emboli in the left upper and lower lobes as well as the right lower lobe. he seems to be better, was switched from heparin to Eliquis 10 twice a day for 7 days followed by 5 mg twice a day after that, he needs to stay on that indefinitely in view of history of factor V Leiden deficiency and history of recurrent DVT - troponin I negative for injury. Patient denies chest pain or dyspnea. -PE does not require EKOS procedure as PE is not submassive. his echocardiogram showed normal right ventricular size and function - he has scheduled venous US for fu on outpt basis (2) Gait instability: Code(s): R26.81 - Unsteadiness on feet Status: Acute Assessment and Plan: -He denies dizziness but reports gait imbalance in recent weeks. -He had carotid U/S 04/23/20: < 50% stenosis bilateral ICA. -Consider additional outpatient neurology, ENT, and PT evaluation. -CT revealed calcified coronary artery atherosclerosis, suggesting need for outpatient ischemic evaluation pending resolution of PE. He has an event monitor on going now, in the event that he needs a pacemaker it has to be delayed at least 3 month from the time of treatment of his DVT, unless it is an emergency in which case he has to be bridged with heparin Subjective Date/time seen: 05/07/20 Pt feels fine today. No CP, SOB or palpitation, no LE edema. Does complain still for LLE pain but states it is 4/10 which is much better than it used to be. He states thaat had DVT in 2006 and was on Coumadin at that time but it was dc and switched to ASA. Pt is going home today . states that has schedoled sleep study on outpatient basis. Pt was seen and examined, chart was reviewed, case was d/w pt's nurse. Review of Systems Review of Systems: All systems reviewed & are unremarkable except as noted in HPI and below Constitutional: Constitutional: Reports as per HPI Eyes: Eyes: Reports as per HPI ENT: Reports system reviewed and no additional complaints, except as documented and Reports as per HPI Cardiovascular: Cardiovascular: Reports as per HPI Respiratory: Respiratory: Reports as per HPI Gastrointestinal: Gastrointestinal: Reports as per HPI Genitourinary: Genitourinary: Reports as per HPI Musculoskeletal: Musculoskeletal: Reports as per HPI Exam Const: General: no acute distress Nutritional Appearance: well nourished Orientation/consciousness: patient oriented x3 HENMT: Head: normal to inspection and atraumatic Ears: hearing grossly normal bilaterally Face and sinus: normal facial exam Eyes: General: appearance normal, both eyes and all related structures Pupils: Equal, round and reactive pupils present EOM: EOMs intact bilaterally Neck: Neck: supple Chest: Chest palpation & inspection: normal inspection of the chest Resp: Effort & Inspection: normal respiratory effort and no respiratory distress Auscultation: clear to auscultation bilaterally Cardio: Jugular venous distension: no JVD Rate: regular rate Heart sounds: S1 normal heart sound present, S2 normal heart sound present and no murmurs Peripheral pulses: Peripheral pulses 2+ throughout G
--- NOTE | 2020-05-07 11:07 | PM.DS ---
DS: Admitting Diagnosis Admitting Diagnosis Admitting Diagnosis: Left leg pain and swelling. DS: Discharge Diagnosis Discharge Diagnosis (1) Left leg DVT: Code(s): I82.402 - Acute embolism and thrombosis of unspecified deep veins of left lower extremity Status: Acute Assessment and Plan: Date of Admission 05/04/20 Date of Discharge/DOS 05/07/20 Mr. Baxter is a very pleasant 74yo M with history of factor V Leiden mutation, DVT in the past, renal cell carcinoma, chronic kidney disease stage 3, GERD, presumed obstructive sleep apnea, and benign prostatic hyperplasia who presented to the emergency department for evaluation of pain and swelling in his left leg. Imaging showed extensive left leg DVT in addition to bilateral pulmonary emboli. He was started on a heparin drip for VTE treatment. He is a patient of [facility] but Dr Copeland was consulted by the ED for recommendations from a vascular standpoint. His pain and swelling improved while on the heparin drip and Dr Copeland recommended he did not require thrombectomy at this time. Patient was transitioned to Eliquis and care management worked on pricing/discount card for Eliquis. Patient was recently admitted earlier this month for evaluation of near syncope. He was evaluated by cardiology, Dr Nuñez, at that time and was found to have evidence of AV block as well as bradycardia. He was discharged from the hospital at that time with a Holter monitor. He has a short-interval follow up appointment with Dr Nuñez 05/12/20. Per the records it seems that a pacemaker may be in discussion. Dr Copeland recommends to me that the patient should not disrupt Eliquis for 3 months given the extent of his VTE, and that should the patient require pacer placement sooner than that, he may need admitted for heparin drip in the interim. Patients symptoms were improved and he was hemodynamically stable for discharge 05/07/20 with instructions to follow up with Dr Nuñez 05/12 as scheduled, repeat lower extremity doppler in 1 week. Patient presents with left groin pain, imaging shows extensive left lower extremity DVT as well as bilateral pulmonary emboli. He was started on heparin drip due to the extent of his left leg DVT. He is quite asymptomatic with regards to the pulmonary embolism. Dr. Copeland consulted from ED. Recommends transition from heparin gtt to Eliquis and follow up with venous doppler in 1 week. He will get the results and call the patient if needed, otherwise pt does not need to follow up with Dr Copeland. (2) Bilateral pulmonary embolism: Code(s): I26.99 - Other pulmonary embolism without acute cor pulmonale Status: Acute Assessment and Plan: No evidence of right heart strain noted on CTA chest. Patient appears to doing well clinically; tolerating room air, no shortness of breath. Eliquis as above. Echo shows no change from recent echo 2 weeks ago. (3) Vertigo: Code(s): R42 - Dizziness and giddiness Status: Acute Assessment and Plan: MRI of brain shows no evidence of CVA. Recently admitted for same and had extensive workup. Denies symptoms today. (4) Chronic kidney disease, stage 3: Code(s): N18.30 - Chronic kidney disease, stage 3 unspecified Status: Chronic Assessment and Plan: Cr appears at baseline per review of previous records. (5) Factor V Leiden mutation: Code(s): D68.51 - Activated protein C resistance Status: Inactive Assessment and Plan: Discussed he will likely need anticoagulation indefinitely for treatment of recurrent DVT and new PEs with Factor V Leiden mutation. (6) Benign prostatic hyperplasia:
--- NOTE | 2020-05-13 10:20 | PC.NURSE ---
Received call from patient's . States patient is to have OP Venous Doppler to recheck left leg DVT. Next available appt at [place] [facility] at [facility] is 05/20/20 at 1 pm. Called patient with appt. time. States agreement and understanding.
== END 2020-05-07 11:45 | disposition home or self-care (01) | DRG 299 ==
LOC: ANHED 14:21 → ANH3MED 14:45
PROVIDERS: Emergency Medicine Emergency Medical Services; Physician Assistant; Admitting Provider Family Medicine; Emergency Provider Emergency Medicine; PCP Family Medicine; Visit Provider Physician Assistant
DX: I82.402 Acute embolism and thrombosis of unspecified deep veins of left lower extremity (principal); I26.99 Other pulmonary embolism without acute cor pulmonale; D68.51 Activated protein C resistance; I44.1 Atrioventricular block, second degree; I44.0 Atrioventricular block, first degree; G47.30 Sleep apnea, unspecified; R26.81 Unsteadiness on feet; N18.30 Chronic kidney disease, stage 3 unspecified; N40.0 Benign prostatic hyperplasia without lower urinary tract symptoms; K21.9 Gastro-esophageal reflux disease without esophagitis; Z90.5 Acquired absence of kidney; Z85.528 Personal history of other malignant neoplasm of kidney
CPT/HCPCS: 36415; 70553; 71275; 80048; 83735; 85025; 85027; 85610; 85730; 93005; 93308; 93971; 96365; 96375; 96376; 97110; 97161; 97165; 97530; 99291; A9270; A9577; G0378; J0131; J1644; J7040; Q9967

== ENCOUNTER 2020-05-20 13:02 | Outpatient (CLI) | payer MEDICARE, SELFPAY ==
--- NOTE | ~2020-05-20 | US_ITS ---
EXAMINATION: US venous doppler LE EXAM DATE: 05/20/2020 14:09 INDICATION: Acute embolism and thrombosis LLE I82.402 - Acute embolism and thrombosis of unspecified deep veins of left lower extremity . TECHNIQUE: Multiple grayscale, color flow and Doppler images of the lower extremity deep venous syste ms bilaterally were obtained and reviewed. Comparison is made to prior examination from 05/04/2020. FINDINGS: RIGHT SIDE Common femoral: -------- Normal. Profunda femoral: ------- Normal. Femoral: Normal. Popliteal: Nonthrombosed. Venous web. Posterior tibial: --------- Normal. Peroneal: Normal. Gastrocnemius: Not visualized. Soleus: Not visualized. Greater saphenous: ----- Normal. Lesser saphenous: ------ Not visualized. LEFT SIDE Common femoral: --------Thrombosed. Profunda femoral: -------Thrombosed. Femoral: Thrombosed. Popliteal: Thrombosed. Posterior tibial: ---------Interval recanalization. Peroneal: Interval recanalization. Gastrocnemius: Thrombosed. Soleus: Not visualized. Greater saphenous: -----Thrombosed. Lesser saphenous: ------ Not visualized. IMPRESSION: 1. Persistent extensive left-sided DVT, but with recanalization of the posterior tibial and peroneal veins. 2. No right-sided DVT. Reviewed, dictated and finalized at location B. [facility] IMPRESSION: 1. Persistent extensive left-sided DVT, but with recanalization of the posteri or tibial and peroneal veins. 2. No right-sided DVT.
== END 2020-05-20 13:03 | disposition home or self-care (01) ==
PROVIDERS: PCP Family Medicine; Visit Provider Physician Assistant
DX: I82.402 Acute embolism and thrombosis of unspecified deep veins of left lower extremity (principal)
CPT/HCPCS: 93970

== ENCOUNTER 2020-05-31 02:13 | Outpatient (CLI) | payer MEDICARE, SELFPAY ==
[2020-05-31 21:22] LABS: SARS-CoV-2 RNA PCR Negative
== END 2020-05-31 02:14 | disposition home or self-care (01) ==
LOC: ANHCOVIDDT 02:14
PROVIDERS: PCP Family Medicine; Visit Provider Internal Medicine Critical Care Medicine
DX: Z01.812 Encounter for preprocedural laboratory examination (principal); Z20.828 Contact with and (suspected) exposure to other viral communicable diseases
CPT/HCPCS: 87635; C9803; U0003

== ENCOUNTER 2020-06-02 07:45 | Outpatient (CLI) | payer MEDICARE, SELFPAY ==
--- NOTE | 2020-07-22 10:02 | WPDSLEEPSTUD ---
Sleep Study Date of Study: 06/02/20 Ordering Provider: Rukhsana Lee DO Interpreting Physician: Eileen Morin MD Sleep Study Type: Split Polysomnogram Height: 1.83 m Weight: 97.522 kg Body Mass Index: 29.1 Neck Circumference: 43.18 cm [place]: 8 Reason for Sleep Study JACQUES Sleep History Jose Baxter is a 75 year old man with history of loud snoring which constantly bothers others. He does not awaken at night with heartburn, belching or coughing. He does not awaken from sleep feeling short of breath. He rarely has trouble sleep with a cold. He does not gasp for breath at night. She rarely has breathing problems at night observed by others. He occasionally sweats excessively at night. He does not notice his heart pounding or beating irregularly at night. He frequently falls asleep during the day, occasionally involuntarily but never while driving. He does not fall asleep during physical effort. He does not have loss of muscle tone with strong emotion. He does not have daytime difficulties due to excessive sleepiness. He does not feel paralyzed on waking or falling asleep and does not have vivid dreamlike scenes upon awakening or falling asleep. He is not afraid to go to sleep. He denies nightmares. He does not remember dreams. He denies feeling sad, depressed or anxious. He occasionally has muscular tension. He does not notice parts of his body jerking and he does not kick at night. He occasionally has crawling and aching feelings in his legs at night, rarely has leg pain during the night. He does not have morning jaw pain and does not grind his teeth during sleep. He is not bothered by pain during the day, is not awakened by pain at night. He does not wake up feeling stiff in the morning. He rarely wakes up with sore or achy muscles. He rarely wakes up with pain in the neck and spine. He has headaches, palpitations and feels off balance. Normal bedtime is between 10 30 and 11:00 p.m. falling asleep within 15 minutes waking 1-2 times at night but is many as 3 or 4 times at night. When awake he goes to the bathroom. He awakes soon after falling asleep or as late as 2-1/2 hours after falling asleep. He wakes in the morning between 7 and 8:00 a.m.. He estimates between 8 and 9 hours of sleep at night. Weekend schedule is the same. He does take naps. A short nap may be refreshing. Most of the time he feels good in the morning. He feels better in the morning compared other times of day Habits: he never smoked tobacco. Caffeine 1 beverage per day. No alcohol or recreational drugs. [facility] Past Medical History Medical History Benign prostatic hyperplasia Cancer of right kidney (~1996) Status post nephrectomy. Chronic kidney disease, stage 3 Baseline creatinine is between 1.20 and 1.30. Deep vein thrombosis of left lower limb 2006 and 2019. Factor V Leiden mutation Gastroesophageal reflux disease Suspected sleep apnea Apnea link in April 2020 showed evidence of severe sleep apnea. He is scheduled for an upcoming outpatient sleep study. Surgical History Surgical History History of arthroscopy of right knee History of right nephrectomy (1996) For renal cell carcinoma. Family History Family History Grandparent Hypertension Family history of coronary artery disease Mother Family history of elevated blood lipids Pacemaker Father Family history of cardiovascular disease Family history of coronary artery disease Sibling Cerebrovascular accident Family history of lung cancer Family history of coronary artery disease Other Acute myocardial infarction Social History Social History Social History: The patient is lives with his in [place]. They have 3 daughters. He has
[2020-07-26 12:34] VITALS: BMI 29.1
== END 2020-06-02 07:46 | disposition home or self-care (01) ==
LOC: ANHCSM 07:45
PROVIDERS: PCP Family Medicine; Visit Provider Family Medicine
DX: G47.31 Primary central sleep apnea (principal)
CPT/HCPCS: 95811

== ENCOUNTER 2020-08-10 02:40 | Outpatient (CLI) | payer MEDICARE, SELFPAY ==
[2020-08-10 18:12] LABS: SARS-CoV-2 RNA PCR Negative
== END 2020-08-10 02:41 | disposition home or self-care (01) ==
LOC: ANHCOVIDDT 02:42
PROVIDERS: PCP Family Medicine; Visit Provider Internal Medicine Critical Care Medicine
DX: Z01.812 Encounter for preprocedural laboratory examination (principal); Z20.822 Contact with and (suspected) exposure to COVID-19
CPT/HCPCS: C9803; U0003; U0005

== ENCOUNTER 2020-08-12 08:50 | Outpatient (CLI) | payer MEDICARE, SELFPAY ==
--- NOTE | 2020-08-20 11:02 | WPDSLEEPSTUD ---
Sleep Study Date of Study: 08/12/20 Ordering Provider: Lalo Mohr MD, primary doctor is Rukhsana Lee DO Interpreting Physician: Eileen Morin MD Sleep Study Type: ASV Height: 1.8 m Weight: 97.069 kg Body Mass Index: 29.8 Neck Circumference: 43.18 cm [place]: 8 Reason for Sleep Study Severe complex sleep apnea on split night study Jun 02, 2020; returns for ASV titration to manage treatment emergent central apneas. Sleep History Split night sleep study on Jun 02, 2020 shows severe complex sleep apnea; the baseline AHI was 60.5 consistent with severe obstructive sleep apnea. The obstructive index was 34.1 and the central index was 20. At baseline the majority of events were obstructive. With the application of positive pressure, the AHI decreased to 31.1 however central apneas predominated. The obstructive index was 2.6, and the central index was 27.9. This is consistent with complex sleep apnea, still severe but overall better with positive pressure. The patient use pressures between 5 and 9 cm of water pressure with a heated humidifier. At all pressures the apnea-hypopnea index was elevated. It ranged from 20-62.8. At CPAP 9 the patient had an AHI of 33.8 with a minimum saturation of 91%. Sleep efficiency was low at all settings, ranged from 30% to 55% during the titration. Supine REM was present at 9 cm. His echocardiogram on 04/23/2020 showed EF 55-60%, which is adequate to proceed with this ASV study. ..................................................................................................................................................................... Jose Baxter is a 75 year old man with history of loud snoring which constantly bothers others. He does not awaken at night with heartburn, belching or coughing. He does not awaken from sleep feeling short of breath. He rarely has trouble sleep with a cold. He does not gasp for breath at night. She rarely has breathing problems at night observed by others. He occasionally sweats excessively at night. He does not notice his heart pounding or beating irregularly at night. He frequently falls asleep during the day, occasionally involuntarily but never while driving. He does not fall asleep during physical effort. He does not have loss of muscle tone with strong emotion. He does not have daytime difficulties due to excessive sleepiness. He does not feel paralyzed on waking or falling asleep and does not have vivid dreamlike scenes upon awakening or falling asleep. He is not afraid to go to sleep. He denies nightmares. He does not remember dreams. He denies feeling sad, depressed or anxious. He occasionally has muscular tension. He does not notice parts of his body jerking and he does not kick at night. He occasionally has crawling and aching feelings in his legs at night, rarely has leg pain during the night. He does not have morning jaw pain and does not grind his teeth during sleep. He is not bothered by pain during the day, is not awakened by pain at night. He does not wake up feeling stiff in the morning. He rarely wakes up with sore or achy muscles. He rarely wakes up with pain in the neck and spine. He has headaches, palpitations and feels off balance. Normal bedtime is between 10 30 and 11:00 p.m. falling asleep within 15 minutes waking 1-2 times at night but is many as 3 or 4 times at night. When awake he goes to the bathroom. He awakes soon after falling asleep or as late as 2-1/2 hours after falling asleep. He wakes in the morning between 7 and 8:00 a.m.. He estimates between 8 and 9 hours of sleep at night. Weekend schedule is the same. He does take naps. A short nap may be refreshing. Most of the time he feels good in the morning. He feels better in the morning compared other times of day Habits: He never smoked tobacco. Caffeine 1 beverage per day. No alcohol or recreational drugs. [facility] Past Medical History Medical History (Reviewed 07/22/20 @ 10
[2020-08-20 11:46] VITALS: BMI 29.8
== END 2020-08-12 08:51 | disposition home or self-care (01) ==
LOC: ANHCSM 08:51
PROVIDERS: PCP Family Medicine; Visit Provider Otolaryngology
DX: G47.31 Primary central sleep apnea (principal); R25.8 Other abnormal involuntary movements; I44.1 Atrioventricular block, second degree; R06.83 Snoring
CPT/HCPCS: 95811

== ENCOUNTER → 2020-09-13 02:18 | Outpatient (CLI) | payer MEDICARE, SELFPAY ==
[2020-09-13 18:21] LABS: SARS-CoV-2 RNA PCR Negative
== END ==
PROVIDERS: PCP Family Medicine; Visit Provider Internal Medicine Cardiovascular Disease
DX: Z01.812 Encounter for preprocedural laboratory examination (principal); Z20.822 Contact with and (suspected) exposure to COVID-19
CPT/HCPCS: C9803; U0003; U0005

== ENCOUNTER 2020-09-16 00:11 | Day surgery (SDC) | payer MEDICARE, SELFPAY ==
[2020-09-15 14:21] VITALS: BMI 29.5
[2020-09-16] VITALS (17 sets, daily range): BP systolic 119–155; BP diastolic 59–88; PULSE 55–80; RESP 14–22; TEMP 36.1–36.6; O2SAT 95–99
--- NOTE | ~2020-09-16 | XR_ITS ---
EXAMINATION: XR chest 1V portable EXAM DATE: 09/16/2020 11:42 INDICATION: Pacemaker insertion. TECHNIQUE: Portable AP frontal chest x-ray was obtained. Comparison is made to prior examination from 05/04/2020. FINDINGS: There is a new dual lead pacemaker/AICD seen with leads projecting over the expected locati ons of the right atrial appendage and right ventricle. The lungs are clear. There are no pleural e ffusions. The cardiomediastinal silhouette is within normal limits. There is no pneumothorax suspec kaye. The bones and soft tissues are unremarkable. IMPRESSION: No evidence postprocedure pneumothorax. Reviewed, dictated and finalized at location A. SSION DISCHARGE RN
--- NOTE | ~2020-09-16 | XR_ITS ---
EXAMINATION: XR chest 2V DATE: 09/17/2020 07:47 INDICATION: Pacer placement. TECHNIQUE: Frontal and lateral views of the chest were obtained. COMPARISON: Chest single view 09/16/20 FINDINGS: The chest demonstrates clear lungs without pneumonia, pleural effusion, or pneumothorax. Th e heart size is normal. There is a left chest wall pacer with leads in the right atrium and right maxim tricle. IMPRESSION: 1. No acute cardiopulmonary disease. Reviewed, dictated and finalized at location A. EACH PROFESSIONAL
--- NOTE | 2020-09-16 07:00 | ECG_ITS ---
Measurements Intervals [place] Rate: 54 P: FL: 0 QRS: -29 QRSD: 154 T: -7 QT: 405 QTc: 384 Interpretive Statements SINUS RHYTHM WITH MARKED FIRST DEGREE AV BLOCK RIGHT BUNDLE BRANCH BLOCK ABNORMAL ECG Electronically Signed On 09-16-2020 9:07:50 INVESTMENT REPRESENTATIVE by Cosme Silverman D.O.
[2020-09-16 07:42] LABS: Basophils Percent Auto 0.6 % (0.2-1.2); Eosinophils Absolute Auto 0.1 K/mm3 (0-0.3); Eosinophils Percent Auto 2.1 % (0-4.4); Hematocrit 47.3 % (42.0-52.0); Hemoglobin 15.5 g/dL (14.0-18.0); Immature Granulocyte Absolute 0.01 K/mm3 (0.00-0.031); Immature Granulocyte Percent A 0.2 % (0-0.5); Immature Platelet Fraction Pct 6.1 % (0.9-11.2); Lymphocytes Absolute Auto 1.38 K/mm3 (0.9-3.2); Lymphocytes Percent Auto 28.8 % (18.3-44.2); Mean Corpuscular HGB Conc 32.8 g/dl (32-36); Mean Corpuscular Hemoglobin 28.5 pg (26-34); Mean Corpuscular Volume 87.1 fl (80-100); Mean Platelet Volume 11.1 fl (7.4-10.4); Monocytes Absolute Auto 0.5 K/mm3 (0.1-0.6); Monocytes Percent Auto 9.8 % (2.6-8.5); Neutrophils Absolute Auto 2.8 K/mm3 (1.3-6.7); Neutrophils Percent Auto 58.5 % (45.5-73.1); Platelet Count Result 130 k/mm3 (150-375); Red Blood Count 5.43 M/mm3 (4.6-6.20); Red Cell Distribution Width 14.1 % (11.5-14.5); White Blood Count 4.8 K/mm3 (4.5-10.0)
[2020-09-16 07:50] LABS: Prothrombin Time 13.3 Seconds (11.1-14.7)
[2020-09-16 07:52] LABS: Anion Gap 3 mmol/L (8-16); Blood Urea Nitrogen 21 mg/dL (9-20); Calcium 8.2 mg/dL (8.4-10.2); Carbon Dioxide 26 mmol/L (22-30); Chloride 110 mmol/L (98-107); Estimated CRCL calculation 52 ml/min; Estimated Glomerular Filt Rate 59; Glucose 98 mg/dL (75-110); Potassium 4.1 mmol/L (3.4-5.0); Sodium 139 mmol/L (137-145)
--- NOTE | 2020-09-16 08:22 | PM.IMHP ---
H&P: HPI History of Present Illness Date/Time: 09/16/20 08:22 Chief Complaint: Second-degree AV block type 2, underlying bundle branch block Narrative: Jose Baxter is a 75 year old male who is here for an elective dual-chamber pacemaker implant. The patient has a history of dizziness, second-degree AV block type 2, RBBB, first-degree AV block, bradycardia and PVCs. He was admitted on 04/22/2022 with dizziness and found to have the second-degree AV block. He also has bradycardia with heart rates were dropping into the 20s and 30s at times. Further evaluation showed he had second-degree AV block type 2, superimposed on RBBB and has a class 1 indication for pacemaker. He is at risk of complete heart block and subsequent morbidity mortality. He has a normal ejection fraction. The patient has been on Eliquis, held for the last few days. He was bridged with Lovenox the last dose being yesterday morning. He also has history of multiple DVTs and PE in 2019 secondary to factor 5 Leiden. Review of Systems Constitutional: Constitutional: Reports no additional constitutional complaints ENT: Denies epistaxis Cardiovascular: Cardiovascular: Denies chest pain, Reports pedal edema, Reports leg edema and Reports lightheadedness Respiratory: Respiratory: Denies dyspnea and Denies dyspnea on exertion Gastrointestinal: Gastrointestinal: Denies abdominal pain Genitourinary: Genitourinary: Denies hematuria Musculoskeletal: Musculoskeletal: Denies back pain Integumentary/Breasts: Skin/Breast: Denies rash Neurologic: Denies confusion Psychiatric: Psychiatric: Denies behavioral changes [facility] Past Medical History Medical History (Updated 09/16/20 @ 08:33 by Lila Nuñez MD) Benign prostatic hyperplasia Cancer of right kidney (~1996) Status post nephrectomy. Chronic kidney disease, stage 3 Baseline creatinine is between 1.20 and 1.30. Deep vein thrombosis of left lower limb 2006 and 2019. 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 He is scheduled for an upcoming outpatient sleep study. Surgical History Surgical History History of arthroscopy of right knee History of right nephrectomy (1996) For renal cell carcinoma. Family History Family History Grandparent Hypertension Family history of coronary artery disease Mother Family history of elevated blood lipids Pacemaker Father Family history of cardiovascular disease Family history of coronary artery disease Sibling Cerebrovascular accident Family history of lung cancer Family history of coronary artery disease Other Acute myocardial infarction Social History Social History Social History: The patient is lives with his in [place]. They have 3 daughters. He has a rescue dog at home named Santiago and they typically walk several miles a day together. 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 He is a lifelong nonsmoker and denies alcohol and illicit substance abuse. He designates his , Ruba, as his surrogate decision maker and he wishes to be a full code. Smoking status: Never smoker Substance use: never Substance use type: does not use Living arrangements: with family Spiritual care concerns: No Meds Home Medications and Allergies Home Medications Medication Instructions Recorded Confirmed Type finasteride 5 mg tablet 5 mg PO HS 06/05/19 09/15/20 History tamsulosin 0.4 mg capsule 0.4 mg PO HS 06/05/19 09/15/20 History apixaban [Eliquis] 5 mg PO Q12HR 21 Days #42 tablet 05/07/2009/15
--- NOTE | 2020-09-16 08:35 | WPDMODSED ---
Moderate Sedation Note-Pt Data Patient Data Diagnosis: Second-degree AV block type 2, underlying RBBB, bradycardia, first-degree block Present Complaint: Second-degree AV block type 2 Procedure to be performed/Plan: Conscious sedation elective dual-chamber pacemaker implant Allergies Allergy/AdvReac Type Severity Reaction Status Date / Time No Known Drug Allergies Allergy Unknown Unknown Verified 06/18/20 11:35 Home Medications Medication Instructions Recorded Confirmed Type finasteride 5 mg tablet 5 mg PO HS 06/05/19 09/15/20 History tamsulosin 0.4 mg capsule 0.4 mg PO HS 06/05/19 09/15/20 History apixaban [Eliquis] 5 mg PO Q12HR 21 Days #42 tablet 05/07/20 09/15/20 Rx acetaminophen 500 mg tablet 500 mg PO Q6H PRN 05/20/20 09/15/20 History aspirin 81 mg PO DAILY 09/15/20 09/15/20 History enoxaparin 100 mg SUBCUT DAILY 09/15/20 09/15/20 History Current Medications: Active Medications Sodium Chloride (Normal Saline Iv) 500 mls @ 100 mls/hr IV CONT .Q5H KRISTAL Sedation/Anesthesia: No previous sedation/anesthesia problems (including family history). [facility] Past Medical History Medical History (Updated 09/16/20 @ 08:33 by Lila Nuñez MD) Benign prostatic hyperplasia Cancer of right kidney (~1996) Status post nephrectomy. Chronic kidney disease, stage 3 Baseline creatinine is between 1.20 and 1.30. Deep vein thrombosis of left lower limb 2006 and 2019. 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 He is scheduled for an upcoming outpatient sleep study. Surgical History Surgical History History of arthroscopy of right knee History of right nephrectomy (1996) For renal cell carcinoma. Family History Family History Grandparent Hypertension Family history of coronary artery disease Mother Family history of elevated blood lipids Pacemaker Father Family history of cardiovascular disease Family history of coronary artery disease Sibling Cerebrovascular accident Family history of lung cancer Family history of coronary artery disease Other Acute myocardial infarction Social History Social History Social History: The patient is lives with his in [place]. They have 3 daughters. He has a rescue dog at home named Santiago and they typically walk several miles a day together. 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 He is a lifelong nonsmoker and denies alcohol and illicit substance abuse. He designates his , Ruba, as his surrogate decision maker and he wishes to be a full code. Smoking status: Never smoker Substance use: never Substance use type: does not use Living arrangements: with family Spiritual care concerns: No Mod Sed Physical Exam Physical Exam Pre Procedural Exam: Normal: Appearance, Eyes, Ears, Nose, Neck, Throat, Airway, Lungs, Heart Size, Heart Rhythm, Neuro Exam, Abdomen and Skin and Variation: Heart Rate (Bradycardic) and Extremities (Mild left lower extremity edema) Hours since solid foods: 12 Hours since liquid intake: 12 Internal Medicine - PN: Obj Da Vital Signs Vital Signs: Vital Signs - 24 hr 09/16/20 07:37 Temperature 97.9 F Pulse Rate 55 L Respiratory Rate 18 Blood Pressure 122/68 Pulse Oximetry 99 Meds/Results Medications: Active Medications Generic Name Dose Route Start Last Admin Trade Name Freq PRN Reason Stop Dose Admin Sodium Chloride 500 mls @ 100 mls/hr 09/16/20 07:00 Normal Saline Iv IV CONT .Q5H KRISTAL Labs CBC & Chem 7: 09/16/20 07:20 09/16/20 07:20
--- NOTE | 2020-09-16 09:32 | SUR.OPER ---
Cut and coag settings of generator set at 40/40. Pre procedure sponge and needle counts performed by Adrienne Richards, RT and confirmed by Yesenia Delarosa RT.
--- NOTE | 2020-09-16 10:27 | SUR.OPER ---
Post procedure sponge and needle counts performed. Counts correct. Counts performed by Adrienne Richards, RT and confirmed by Yesenia Delarosa, RT.
--- NOTE | 2020-09-16 10:38 | SUR.OPER ---
Aquacell dressing applied to L chest pacemaker site.
--- NOTE | 2020-09-16 11:00 | PM.OP ---
Procedure Note - Brief Procedure Note - Brief Date of procedure: 09/16/20 Pre-op diagnosis: 2nd degree AV block Post-op diagnosis: same Procedure performed: Conscious sedation venogram implantation of a permanent dual-chamber Biotronik pacemaker Description of procedure: uneventful pacemaker Anesthesia: local ( with conscious sedation) Surgeon: Lila Nuñez MD Complications: No immediate complications Condition: stable Disposition: observation Findings: uneventful dual-chamber pacemaker implant
--- NOTE | 2020-09-16 11:02 | ECG_ITS ---
Measurements Intervals [place] Rate: 68 P: 246 GA: 172 QRS: -68 QRSD: 153 T: 92 QT: 410 QTc: 438 Interpretive Statements ELECTRONIC ATRIAL PACEMAKER WITH INHIBITION ELECTRONIC VENTRICULAR PACEMAKER VENTRICULAR PREMATURE COMPLEX NO FURTHER INTERPRETATION IS POSSIBLE ATYPICAL ECG Electronically Signed On 09-16-2020 11:57:24 FRONT END SOFTWARE DEVELOPER by Cosme Silverman D.O.
--- NOTE | 2020-09-16 13:00 | ADMGEN ---
This patient, Jose Baxter, was admitted to [facility]. Patient/family oriented to hospital policies and general routines including ID bracelet, bed and alarms, visiting hours, pain management, procedures, bathroom and other care routines, personal items, smoking policy, room service/diet, and visiting hours. Information on how to activate the Rapid Response Team has been discussed. Patient/Family are encouraged to report perceived risks to care and to ask questions if they do not understand what they are told or what they should do.
[2020-09-16] MEDS: ACETAMINOPHEN 500 MG TABLET (14:15)
--- NOTE | 2020-09-16 15:03 | SUR.PHASEII ---
Pt with right arm sling in place. Drsg dry and intact to left upper chest. tolerating po well without nausea and vomiting. c/o 5/10 pain to right chest and numbness to fourth and fifth finger, drsg intact. Medicated with tylenol with relief to 2/10 pain, continues to c/o numbness and tingling to 5 and 5 finger.
[2020-09-16] MEDS: ceFAZolin 2 GM/D5W 50 ML 2 GM/50 ML BAG IVPB ×2 (16:33→23:24)
--- NOTE | 2020-09-16 19:59 | PM.PROC ---
Procedure Note - Detailed Date of procedure: 09/16/20 Pre-op diagnosis: 2nd degree AV block Second-degree AV block type 2 with an underlying bundle branch block, dizziness Post-op diagnosis: same Procedure performed: Conscious sedation Venogram Implantation of a permanent dual-chamber pacemaker Description of procedure: PROCEDURE PERFORMED: Conscious sedation Venogram Placement of a permanent dual-chamber pacemaker SITE: Left prepectoral area MEDICATIONS GIVEN IN CARAMEL MAKER: Ancef 1 gram IV piggyback CONSCIOUS SEDATION: Assessment: The patient has no history of anesthesia problems. The patient's oropharynx is clear. The patient was deemed to be a good candidate for conscious sedation. The patient had continuous hemodynamic monitoring during the procedure. Start time: 915 Completion time: 103 Total conscious sedation time: 74 minutes Medications: Versed 4 mg, fentanyl 150 mcg IV push Trained observer: Tamika Toro RN Outcome: The patient tolerated the procedure well with no complications. PROCEDURE: After informed consent , the patient was brought to the tag and label cutter and the left prepectoral area was prepped and draped in usual fashion . The patient received preop antibiotic with Ancefand conscious sedation . The left prepectoral area was anesthetized with lidocaine . A venogram was performed showing the course of the left subclavian vein,which was patent. Next a skin incision was made and carried down to the prepectoral fascia. Hemostasis was obtained using electrocautery . The pacer pocket was formed. The left subclavian vein was easily accessed with the micropuncture technique, and a J-tip guide wire was passed into the inferior vena cava under fluoroscopic guidance . The needle was withdrawn . A 2nd wire was introduced in an identical fashion. A 7 Malay Malay safety sheath was passed over the lateral wire, the wire withdrawn, and the right ventricular lead was passed into the inferior vena cava under fluoroscopic guidance . The lead was then prolapsed through the tricuspid valve and advanced into the right ventricular ventricle. Since the patient will likely pace ventricularly a lot, I placed the lead on the ventricular septum , hoping for more physiologic pacing. When suitable sensing and pacing thresholds were obtained, it was screwed into place. No extra cardiac stimulation was obtained using 10 volts. The sheath was withdrawn. Next, another 7 Malay safety sheath was passed over the more medial wire, the wire withdrawn, and the right atrial lead was passed into the inferior vena cava under fluoroscopic guidance. Right atrial lead was then pulled back to the level of the right atrium and manipulated into the right atrial appendage . When suitable sensing and pacing thresholds were obtained , it was screwed into place . No extra cardiac stimulation was obtained using 10 volts. The sheath was withdrawn. Both leads were secured to the prepectoral fascia using 2-0 silk over their respective sleeves. The pocket was cleansed with antibiotic containing solution . The pulse generator was introduced into the operative field, and both leads were secured into the generator . A gentle tug showed the leads were securely fastened. The device was introduced into the pocket. The subcutaneous tissues were closed in a double layer fashion with interrupted sutures, using 2-0 Vicryl suture , and the skin was closed in a continuous fashion using 4-0 Vicryl suture in a continuous fashion. The area was cleansed, and an Aquacel dressing was applied. because of the aspirin, recent Lovenox and Eliquis the patient had some mild oozing. Hemostasis was good at the completion of the case but a pressure dressing was applied to err on the side of caution. The patient tolerated the procedure well with no complications. PACEMAKER INFORMATION: Pulse generator: [employer] [place] 8 DR-T, model number [id number], serial number [id number]
[2020-09-16] MEDS: TAMSULOSIN HCL 0.4 MG CAPSULE PO (20:27)
[2020-09-16] MEDS: FINASTERIDE 5 MG TABLET PO (20:27)
[2020-09-17] VITALS: PULSE 66
[2020-09-17 01:50] VITALS: PULSE 73
[2020-09-17 03:35] VITALS: BP 114/50; PULSE 66; RESP 20; TEMP 36.4; O2SAT 99
[2020-09-17 04:00] VITALS: PULSE 66
[2020-09-17 06:00] VITALS: PULSE 65
[2020-09-17 08:00] VITALS: BP 128/56; PULSE 73; PULSE 75; RESP 18; TEMP 36.4; O2SAT 98
--- NOTE | 2020-09-17 09:25 | PM.DS ---
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 Hospital Course: Pt admitted for elective Biotronik pacemaker implantation which was performed 09/16/2020 uneventfully. The RV lead was laced on the septum since I anticipate that patient will RV pace most of the time and this will allow for more physiologic contractility. Pacer shows normal function this morning. Pt has a h/o DVT and Factor V Leiden, so his Eliquis was discontinued a few days prior to admission and he was bridged with Lovenox prior to the procedure. He may resume Eliquis tomorrow. Status at Discharge Functional status at discharge: independent ambulation Overall status at discharge: patient is back to baseline Time Spent with Patient Time attestation: Total time spent providing and/or coordinating discharge services: < 30 minutes Exam Narrative: Exam Narrative: Exam per RN; discharge done remotely. Const: General: comfortable and no acute distress Resp: Effort & Inspection: normal respiratory effort Cardio: Rate: regular rate Rhythm: regular rhythm GI: GI Palp: No Tenderness to palpation present (GI) Skin: General skin exam: normal color Other: RN reports pacer site w/o swelling or ecchymosis Extrem: General: normal to inspection Psych: Mental Status: mental status grossly normal DS: Data Imaging Attestation: I personally reviewed and interpreted this imaging study as follows: (CXR) My impression: NOrmal expected lead position, no PTX Radiologist's impression: Same Additional Comments Additional comments: Pacemaker interogated, good thresholds and normal function. Discharge Plan Discharge Patient Disposition: Home, Self-Care Discharge Instructions: Follow up: OK to resume Eliquis on Sunday. I sent a prescription for an antibiotic, cephalexin, to your [facility] pharmacy in [place]. Start taking it today. You have an appointment with [facility] for an incision check with our nurses on 09/22/2020 at 9:30 a.m.. Please arrive 15 minutes early for registration. You will have your pacemaker checked routinely through your remote monitoring device and through the office. Call [facility]iology [facility] if you have any questions: [phone] or [phone] Pacemaker incision care: Keep the Special Aquacel bandage over the incision until it is removed next week by [facility] nurses. Keep the incision clean and dry. No showering above the waist for 1 week. Do not soak or scrub the incision or bandage. Do not touch the incision. No ointments creams or lotions to the incision The stitches under skin will dissolve in the next few weeks. Call if there is any redness, swelling, worsening pain or drainage from the incision. Call if you have a fall or any other unexpected occurrence. Take Tylenol as needed for discomfort Activity: Keep your left arm below shoulder height for 1 month. No lifting or pulling greater than 10 lb with the left arm for 1 month. no exercise with the left arm for 1 month. Normal activities such as putting on a coat, and dressing etcetera is fine. Avoid jerking movements such as calisthenics, window washing, horseback riding, golfing is for 1 month. OK to resume driving in 3-4 days, when you are no longer sore. Patient Instructions: Antibiotic Form Stand Alone Forms: General Discharge Instructions Discharge Medications: New cephalexin 500 mg capsule 500 mg PO Q12H Qty: 10 RF: 0 Continued finasteride 5 mg tablet 5
[2020-09-17] MEDS: ASPIRIN 81 MG CHEWABLE TABLET PO (09:43)
== END 2020-09-17 11:27 | disposition home or self-care (01) ==
LOC: ANHCATHLAB 07:05 → ANHCPC 13:50 → ANHIMU 09-17 09:25
PROVIDERS: PCP Family Medicine; Visit Provider Internal Medicine Cardiovascular Disease
PROC: 0JH606Z Insertion of Pacemaker, Dual Chamber into Chest Subcutaneous Tissue and Fascia, Open Approach (ICD-10-PCS; CPT 33208; principal; 2020-09-16 08:30)
DX: I44.1 Atrioventricular block, second degree (principal); I45.10 Unspecified right bundle-branch block; R42 Dizziness and giddiness; R00.1 Bradycardia, unspecified; D68.51 Activated protein C resistance; N18.30 Chronic kidney disease, stage 3 unspecified; N40.0 Benign prostatic hyperplasia without lower urinary tract symptoms; K21.9 Gastro-esophageal reflux disease without esophagitis; Z79.01 Long term (current) use of anticoagulants; Z86.718 Personal history of other venous thrombosis and embolism; Z86.711 Personal history of pulmonary embolism; Z85.528 Personal history of other malignant neoplasm of kidney; Z90.5 Acquired absence of kidney
CPT/HCPCS: 33208; 36415; 71045; 71046; 80048; 85025; 85055; 85610; 93005; A4565; A9270; C1779; C1785; J0690; J2250; J3010; J7040

== ENCOUNTER 2020-09-24 12:30 | Outpatient (RCR) | payer MEDICARE, SELFPAY ==
--- NOTE | 2020-08-27 15:10 | PTOPEVAL ---
PHYSICAL THERAPY EVALUATION AND PLAN OF CARE 08-27-20 Thank you for referring Jose Baxter to [facility], for the diagnosis of L LE lymphedema. Nicholas is scheduled to be seen for therapy? 2-3 x/week for 4 weeks, but will not receive treatment the week of September 13, due to COVD testing and having a pacemaker placed.. Please review, sign, date and return this plan of care HAL. I agree with and certify that the following plan of care is medically necessary. Referring Physician Date Attending Provider: Dr. Vilchis *PT Outpatient Evaluation Start: 08/27/20 13:52 Document 08/27/20 13:50 YUMIKO (Rec: 08/27/20 15:10 YUMIKO [id number]) Outpatient Past Medical History Past Medical History Source of Past Medical History Recalled from Previous Visit, Confirmed with Patient/Family Neurological History Hx Neurological Disorders No Significant History Cardiovascular History Hx Deep Vein Thrombosis Yes: L LE DVT- thrombectomy 2x - clot still there Hx Irregular Heartbeat Yes: bradycardia- to have pacemaker September 16 Respiratory History Hx Sleep Apnea Yes: complex sleep apnea- working on getting CPAP Gastrointestinal History Hx Gastroesophageal Reflux Disease Yes Hx Polyps Yes Genitourinary History Hx Other Genitourinary Disorders Yes: right kidney removed CA, enlarged prostate Musculoskeletal History Hx Orthopedic Surgery Yes: right knee scope/cleaned Hematological History Hx Hematological Disorders No Significant History Endocrine History Hx Endocrine Disorders No Significant History HEENT History Hx Other HEENT Disorders Yes: receiving vestibular therapy for dizziness-another facility Integumentary History Hx Shingles Yes Reproductive History Hx Reproductive Disorders No Significant History Psychosocial History Hx Psychiatric Disorders No Significant History Pain History History of Any Previous or Ongoing No Significant History Instance of Pain Anesthesia History Hx Anesthesia Reactions No Significant History Other History Hx Cancer Yes: rt kidney removed Hx Other Medical Conditions Yes: Factor V Leiden mutation- incr blood clot formation Evaluation Information Problem Diagnosis L LE lymphedema Onset Apr 30, 2020 Prior Level of Function Activity Level (Last 3 Months) Occupation retired Activity of Daily Living Ability Independent Indoor/Home Mobility Independent Community Mobility Independent Stairs Ability Independent Functional Cognition (Planning, Shopping Independe
--- NOTE | 2020-09-24 13:18 | PTOPEVAL ---
PHYSICAL THERAPY DISCHARGE 09-24-20 Refer to the clinical summary below for his status at discharge. The goals were achieved. Thank you for referring Jose Baxter to [facility], for the diagnosis of L LE lymphedema. Please review, sign, date and return this discharge summary HAL. I agree with and certify that the following plan of care is medically necessary. Referring Physician Date Attending Provider: Dr. Vilchis CC: Rukhsana Lee, DO--pt's general physician, per pt request *PT Outpatient Discharge Document 09/24/20 12:35 YUMIKO (Rec: 09/24/20 13:18 YUMIKO [id number]) Subjective Information Jose reports: wearing the Query Text:As Reported By Patient/ reduction leg kit past few Family nights; is not having any problems with the thigh compression garment;doing self massage; agrees to discharge from PT services. Pain Assessment Timing of Pain Assessment Timing of Pain Assessment Assessment Self Report Self Report Pain Level 0 Pain Score Pain Score 0: Self Report Lymphedema Evaluation Skin Inspection Location Left Lower Extremity Tissue Texture Normal Lymphedema Stage I Skin Care Precautions and Self Manual Lymph Drainage, Recommendations Signs and Symptoms of Lymphedema,Skin Inspection/ Redness Skin Inspection Comment L LE with good skin color, without any redness or discoloration; no firmness of tissue, no tenderness to touch; - pt to dept with thigh high compression garment, 20-30 mmHg compression with closed toes; he is indep don/doffing ; does not have any gloves, discussed with him to obtain, to protect garment and ease of don/doffing; -discussed and issued measurements for: ankle 24.2 cm/ bulk of calf 45.5 cm and bulk of upper thigh 57 cm; he can use these for spot checks of leg; - discussed if the 20-30 mmHg garment is not maintaining his leg, will need to obtain a higher compression 30-40 mmHg;
== END 2020-09-28 10:49 | disposition home or self-care (01) ==
LOC: ANHPT 12:30
PROVIDERS: PCP Family Medicine
DX: D68.51 Activated protein C resistance (principal); I87.009 Postthrombotic syndrome without complications of unspecified extremity; I82.402 Acute embolism and thrombosis of unspecified deep veins of left lower extremity; M79.89 Other specified soft tissue disorders
CPT/HCPCS: 29581; 97140; 97161

== ENCOUNTER → 2020-11-30 04:29 | Outpatient (CLI) | payer MEDICARE, SELFPAY ==
[2020-11-30 20:06] LABS: SARS-CoV-2 RNA PCR Negative
== END ==
PROVIDERS: PCP Family Medicine; Visit Provider Internal Medicine Gastroenterology
DX: Z01.812 Encounter for preprocedural laboratory examination (principal); Z20.822 Contact with and (suspected) exposure to COVID-19
CPT/HCPCS: C9803; U0003; U0005

== ENCOUNTER 2020-12-03 03:23 | Day surgery (SDC) | payer MEDICARE, SELFPAY ==
[2020-11-16 13:42] VITALS: BMI 30.5
[2020-12-03 08:13] VITALS: BP 138/81; PULSE 78; RESP 20; TEMP 36.2; O2SAT 95
[2020-12-03] MEDS: LACTATED RINGERS 1,000 ML 150 ML IV CONT (08:15)
--- NOTE | 2020-12-03 09:06 | PM.HPGS ---
History of Present Illness History of Present Illness Consent: Risks, benefits, and alternatives have been discussed and questions answered. Patient agrees to proceed with procedure. Chief complaint: hx colon polyps Narrative: Jose Baxter is a 75 year old male here for colon cancer screening. He has had polyps removed in the past Review of Systems Review of Systems: All systems reviewed & are unremarkable except as noted in HPI and below PMFSH Past Medical History Medical History Benign prostatic hyperplasia Cancer of right kidney (~1996) Status post nephrectomy. Chronic kidney disease, stage 3 Baseline creatinine is between 1.20 and 1.30. Deep vein thrombosis of left lower limb 2006 and 2019. 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 He is scheduled for an upcoming outpatient sleep study. Surgical History Surgical History History of arthroscopy of right knee History of right nephrectomy (1996) For renal cell carcinoma. S/P cardiac pacemaker procedure Family History Family History Grandparent Hypertension Family history of coronary artery disease Mother Family history of elevated blood lipids Pacemaker Father Family history of cardiovascular disease Family history of coronary artery disease Sibling Cerebrovascular accident Family history of lung cancer Family history of coronary artery disease Other Acute myocardial infarction Social History Social History Social History: The patient is lives with his in [place]. They have 3 daughters. He has a rescue dog at home named Santiago and they typically walk several miles a day together. 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 He is a lifelong nonsmoker and denies alcohol and illicit substance abuse. He designates his , Ruba, as his surrogate decision maker and he wishes to be a full code. Smoking status: Never smoker Substance use: never Substance use type: does not use Living arrangements: with family Gender identity (if verbalized by the patient): Male Spiritual care concerns: No Meds Home Medications and Allergies Home Medications Medication Instructions Recorded Confirmed Type finasteride 5 mg tablet 5 mg PO HS 06/05/19 12/03/20 History tamsulosin 0.4 mg capsule 0.4 mg PO HS 06/05/19 12/03/20 History Eliquis 5 mg PO Q12HR 21 Days #42 tablet 05/07/20 12/03/20 Rx acetaminophen 500 mg tablet 500 mg PO Q6H PRN 05/20/20 12/03/20 History aspirin 81 mg PO DAILY 09/15/20 12/03/20 History Allergies Allergy/AdvReac Type Severity Reaction Status Date / Time No Known Drug Allergies Allergy Unknown Unknown Verified 12/03/20 08:11 Vital Signs Vital Signs - 24 hr 12/03/20 08:13 Temperature 36.2 C L Pulse Rate 78 Respiratory Rate 20 Blood Pressure 138/81 Pulse Oximetry 95 Exam Resp: Auscultation: clear to auscultation bilaterally Cardio: Rate: regular rate Rhythm: regular rhythm GI: GI Palp: Yes Soft to palpation and No Tenderness to palpation present (GI) Assessment and Plan Assessment and plan (1) Personal history of colonic polyps: Code(s): Z86.010 - Personal history of colonic polyps Status: Acute Assessment and Plan: Colonoscopy with possible biopsy or polypectomy or cautery or injection of substances.
--- NOTE | 2020-12-03 09:24 | WPDANESEPPF ---
Anes - Initial Pre Proc Eval Procedure: Operation Date: 12/03/20 09:30 Proposed Procedures p Screening Colonoscopy - Bernardo Pizarro MD Date/Time: 12/03/20 09:24 Surgeon: Bernardo Pizarro MD Pre Op Diagnosis: hx colon polyps Patient Data Age: 75 Gender: M Height: 6 ft Weight: 100.2 kg Last Vital Signs Temp 97.2 F L 12/03/20 08:13 Pulse 78 12/03/20 08:13 Resp 20 12/03/20 08:13 BP 138/81 12/03/20 08:13 Pulse Ox 95 12/03/20 08:13 Allergies Allergy/AdvReac Type Severity Reaction Status Date / Time No Known Drug Allergies Allergy Unknown Unknown Verified 12/03/20 08:11 Home Medications Medication Instructions Recorded Confirmed Type finasteride 5 mg tablet 5 mg PO HS 06/05/19 12/03/20 History tamsulosin 0.4 mg capsule 0.4 mg PO HS 06/05/19 12/03/20 History Eliquis 5 mg PO Q12HR 21 Days #42 tablet 05/07/20 12/03/20 Rx acetaminophen 500 mg tablet 500 mg PO Q6H PRN 05/20/20 12/03/20 History aspirin 81 mg PO DAILY 09/15/20 12/03/20 History Patient hx anesthesia problems: none Family hx anesthesia problems: none PMFSH Past Medical History Medical History Benign prostatic hyperplasia Cancer of right kidney (~1996) Status post nephrectomy. Chronic kidney disease, stage 3 Baseline creatinine is between 1.20 and 1.30. Deep vein thrombosis of left lower limb 2006 and 2019. 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 He is scheduled for an upcoming outpatient sleep study. Surgical History Surgical History History of arthroscopy of right knee History of right nephrectomy (1996) For renal cell carcinoma. S/P cardiac pacemaker procedure Family History Family History Grandparent Hypertension Family history of coronary artery disease Mother Family history of elevated blood lipids Pacemaker Father Family history of cardiovascular disease Family history of coronary artery disease Sibling Cerebrovascular accident Family history of lung cancer Family history of coronary artery disease Other Acute myocardial infarction Social History Social History Social History: The patient is lives with his in [place]. They have 3 daughters. He has a rescue dog at home named Santiago and they typically walk several miles a day together. 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 He is a lifelong nonsmoker and denies alcohol and illicit substance abuse. He designates his , Ruba, as his surrogate decision maker and he wishes to be a full code. Smoking status: Never smoker Substance use: never Substance use type: does not use Living arrangements: with family Gender identity (if verbalized by the patient): Male Spiritual care concerns: No Anes - Eval Final PreProcedure Day of Procedure 12/03/20 09:24 Patient weight: obese Heart: regular rate and rhythm Lungs: clear to auscultation Airway: Mallampati scale class II Neurological: alert and oriented Last oral intake: >/= 8 hours ASA classification: III Emergent: no Anesthetic plan: proceed Anesthesia type and monitoring: general GIVS and standard monitoring Informed Consent: The patient's anesthetic plan and its attendant risks and benefits were discussed with the patient/family/POA. Questions were solicited and answers provided to the satisfaction of the patient/family/POA.
[2020-12-03 09:57] VITALS: BP 99/62; PULSE 72; RESP 21; O2SAT 98
[2020-12-03 10:07] VITALS: BP 110/68; PULSE 78; RESP 18; O2SAT 98
[2020-12-03 10:15] VITALS: BP 135/87; PULSE 74; RESP 17; O2SAT 99
[2020-12-03 10:27] VITALS: BP 112/70; PULSE 78; RESP 18; O2SAT 99
== END 2020-12-03 10:49 | disposition home or self-care (01) ==
PROVIDERS: PCP Family Medicine; Visit Provider Internal Medicine Gastroenterology
PROC: 0DJD8ZZ Inspection of Lower Intestinal Tract, Via Natural or Artificial Opening Endoscopic (ICD-10-PCS; CPT 45378; principal; 2020-12-03 09:30)
DX: Z12.11 Encounter for screening for malignant neoplasm of colon (principal); K57.30 Diverticulosis of large intestine without perforation or abscess without bleeding; D12.3 Benign neoplasm of transverse colon; N18.30 Chronic kidney disease, stage 3 unspecified; N40.0 Benign prostatic hyperplasia without lower urinary tract symptoms; D68.51 Activated protein C resistance; Z86.718 Personal history of other venous thrombosis and embolism; Z79.01 Long term (current) use of anticoagulants; Z95.0 Presence of cardiac pacemaker; E66.9 Obesity, unspecified; Z68.30 Body mass index [BMI] 30.0-30.9, adult
CPT/HCPCS: 45385; 88305; J2704; J7120

== ENCOUNTER → 2021-06-02 02:33 | Outpatient (CLI) | payer MEDICARE, SELFPAY ==
[2021-06-02 18:39] LABS: SARS-CoV-2 RNA PCR Positive
== END ==
PROVIDERS: PCP Family Medicine; Visit Provider Physician Assistant Medical
DX: U07.1 COVID-19 (principal)
CPT/HCPCS: C9803; U0003; U0005

== ENCOUNTER 2021-06-06 08:06 | Outpatient (RCR) | payer MEDICARE, SELFPAY ==
[2021-06-06] MEDS: ACETAMINOPHEN 325 MG TABLET 650 MG PO (13:36)
[2021-06-06] MEDS: diphenhydrAMINE HCl CAP 25 MG CAPSULE PO (13:36)
[2021-06-06] MEDS: FAMOTIDINE 20 MG TABLET PO (13:36)
[2021-06-06 13:47] VITALS: BP 117/46; PULSE 74; RESP 18; TEMP 38.3; O2SAT 96
[2021-06-06 14:17] VITALS: TEMP 37.3
[2021-06-06 15:09] VITALS: BP 111/46
--- NOTE | 2021-06-07 13:24 | PC.NURSE ---
Called Mr Baxter and he is having some dizzy spells upon standing,feels off balanced today, and having a fever on and off but it does come down to normal with Tylenol. I told him he needs to call his PCP with these symptoms and verbalized he will. He has no other questions at this time.
== END 2021-06-06 16:00 ==
LOC: AMCINF 08:06
PROVIDERS: PCP Family Medicine; Visit Provider Internal Medicine Hematology & Oncology
DX: Z23 Encounter for immunization (principal); U07.1 COVID-19; I25.10 Atherosclerotic heart disease of native coronary artery without angina pectoris; N18.9 Chronic kidney disease, unspecified
CPT/HCPCS: A9270; M0245; Q0245

== ENCOUNTER → 2022-10-25 08:59 | Outpatient (CLI) | payer MEDICARE, SELFPAY ==
--- NOTE | ~2022-10-25 | US_ITS ---
US soft tissue UE RT 10/25/2022 09:17 Indication: Palpable lump right axilla Procedure: High-resolution ultrasound of the right axilla Comparison: No prior studies for comparison. Findings: In the area of palpable concern in the right axilla there is an oval circumscribed isoechoi c mass with horizontal striations parallel to the skin surface. No posterior features or internal vas cularity. Impression: 1: Oval isoechoic right axillary mass measuring 2.8 x 1.6 x 1.1 cm, with sonographic features charact eristic of lipoma. Recommend follow-up clinical management with repeat ultrasound if changes occur on physical examination. Reviewed, dictated and finalized at location B. Impression: 1: Oval isoechoic right axillary mass measuring 2.8 x 1.6 x 1.1 cm, with sonogr aphic features characteristic of lipoma. Recommend follow-up clinical managemen t with repeat ultrasound if changes occur on physical examination.
== END ==
PROVIDERS: PCP Family Medicine; Visit Provider Nurse Practitioner
DX: R22.31 Localized swelling, mass and lump, right upper limb (principal)
CPT/HCPCS: 76882

== ENCOUNTER 2024-02-28 09:41 | Outpatient (CLI) | payer MEDICARE, SELFPAY ==
--- NOTE | ~2024-02-28 | CT_ITS ---
EXAMINATION: CT abdomen pelvis wo/w con DATE: 02/28/2024 10:22 INDICATION: Gross hematuria. TECHNIQUE: Computed tomography (CT) of the abdomen and pelvis was performed without and with intraven ous contrast using a total of 130 mL Omnipaque-350 intravenous contrast with a double-bolus technique for simultaneous opacification of the renal parenchyma and renal collecting system. Automated exposu re control and iterative reconstruction technique were employed. The dose-length product was 2077.36 mGy-cm. COMPARISON: Chest CT 05/04/20 FINDINGS: The visualized portions of the lung bases demonstrate mild atelectasis. No pleural effusion. Cardiome ty is noted. There are coronary artery calcifications. No pericardial effusion. There are pacer wir es in region of right ventricle. The liver, gallbladder, and spleen are normal. Calcifications of the pancreas are consistent with chronic pancreatitis. There are changes of right adrenalectomy and righ t nephrectomy. Left adrenal gland is normal. There are cysts in left kidney measuring up to 2.3 cm. T here is no urolithiasis. Left ureter is well opacified and is normal. There is diffuse bladder wall t hickening, likely secondary to chronic outlet obstruction from the moderately enlarged prostate. Ther e are bilateral inguinal hernias containing fat. There is diverticulosis of the colon without evidenc e of diverticulitis. There are no dilated loops of bowel. The appendix is normal. There is a small sl iding hiatal hernia. There is calcified atherosclerosis of the aorta and many of the other arteries. There are no pathologically enlarged lymph nodes. There is no free intraperitoneal fluid. There is se abdoulaye thoracic and lumbar spondylosis. IMPRESSION: 1. Diffuse bladder wall thickening, likely secondary to chronic outlet obstruction from the moderatel y enlarged prostate. 2. Small sliding hiatal hernia. 3. Bilateral inguinal hernias containing fat. Reviewed, dictated and finalized at location A. IMPRESSION: 1. Diffuse bladder wall thickening, likely secondary to chronic outlet obstruct ion from the moderately enlarged prostate. 2. Small sliding hiatal hernia. 3. Bilateral inguinal hernias containing fat.
[2024-02-28 10:09] LABS: Estimated Glomerular Filt Rate 45
== END 2024-02-28 09:42 | disposition home or self-care (01) ==
PROVIDERS: PCP Family Medicine; Visit Provider Urology
DX: R31.0 Gross hematuria (principal); K44.9 Diaphragmatic hernia without obstruction or gangrene; K40.20 Bilateral inguinal hernia, without obstruction or gangrene, not specified as recurrent
CPT/HCPCS: 74178; Q9967

== ENCOUNTER 2024-07-24 15:47 | Outpatient (CLI) | payer MEDICARE, SELFPAY ==
[2024-07-24 16:10] LABS: Basophils Percent Auto 0.7 % (0.2-1.2); Eosinophils Absolute Auto 0.1 K/mm3 (0-0.3); Eosinophils Percent Auto 1.3 % (0-4.4); Hematocrit 47.2 % (42.0-52.0); Hemoglobin 15.4 g/dL (14.0-18.0); Immature Granulocyte Absolute 0.01 K/mm3 (0.00-0.031); Immature Granulocyte Percent A 0.2 % (0-0.5); Immature Platelet Fraction Pct 8.4 % (0.9-11.2); Lymphocytes Absolute Auto 1.42 K/mm3 (0.9-3.2); Lymphocytes Percent Auto 23.4 % (18.3-44.2); Mean Corpuscular HGB Conc 32.6 g/dl (32-36); Mean Corpuscular Hemoglobin 30.4 pg (26-34); Mean Corpuscular Volume 93.1 fl (80-100); Monocytes Absolute Auto 0.6 K/mm3 (0.1-0.6); Monocytes Percent Auto 10.4 % (2.6-8.5); Neutrophils Absolute Auto 3.9 K/mm3 (1.3-6.7); Platelet Count Result 111 k/mm3 (150-375); Red Blood Count 5.07 M/mm3 (4.6-6.20); Red Cell Distribution Width 13.4 % (11.5-14.5); White Blood Count 6.1 K/mm3 (4.5-10.0)
[2024-07-24 16:52] LABS: Iron 71 ug/dL (49-181)
[2024-07-24 16:56] LABS: Alanine Aminotransferase 21 U/L (6-50); Albumin Level 3.8 g/dL (3.5-5.1); Alkaline Phosphatase 120 U/L (38-126); Anion Gap 7 mmol/L (4-12); Aspartate Amino Transferase 32 U/L (17-59); Bilirubin,Total 1.1 mg/dL (0.2-1.3); Blood Urea Nitrogen 28 mg/dL (9-20); Calcium 8.7 mg/dL (8.4-10.2); Carbon Dioxide 27 mmol/L (22-30); Chloride 105 mmol/L (98-107); Estimated Glomerular Filt Rate 48; Glucose 94 mg/dL (65-110); Potassium 4.9 mmol/L (3.4-5.0); Sodium 139 mmol/L (137-145)
[2024-07-24 17:03] LABS: Percent Iron Saturation 21 % (20-50)
[2024-07-24 18:04] LABS: Folic Acid 11.8 ng/mL (2.76->20)
[2024-07-27 21:48] LABS: Platelet Antibody, Direct NEGATIVE (NEGATIVE)
[2024-07-28 05:34] LABS: Methylmalonic Acid 479 nmol/L (69-390)
[2024-07-28 14:49] LABS: Soluble Transferrin Receptor 2.05 mg/L (0.76-1.76)
== END 2024-07-24 15:48 | disposition home or self-care (01) ==
LOC: ANHLAB 15:48
PROVIDERS: PCP Family Medicine; Visit Provider Internal Medicine Hematology & Oncology
DX: D64.9 Anemia, unspecified (principal); D69.59 Other secondary thrombocytopenia
CPT/HCPCS: 36415; 80053; 82607; 82728; 82746; 83540; 83550; 83921; 84238; 85025; 85055; 86023

== ENCOUNTER 2024-09-02 13:30 | Outpatient (CLI) | payer MEDICARE, SELFPAY ==
--- OUTSIDE RECORDS SUMMARY | 2024-09-02 13:36 | XMS_ITS | Clinical Summary ---
Author Organization [facility] [place] [address] Address [address] [place] [address] Care Team Providers Care Apparel Machinery Instructor Name Role Phone Rukhsana Lee DO Primary Care Provider [phone]- [phone] Referral, Self Unavailable Unavailable Allergies No known active allergies Medications tamsulosin (FLOMAX) 0.4 mg extended release capsuleIndicatio ns:benign prostatic hyperplasia with lower urinary tract sx Take 1 capsule (0.4 mg total) by mouth nightly 0 Active Eliquis 5 mg tabletIndication s:dvt Take 1 tablet (5 mg total) by mouth 2 (two) times a day 0 Active aspirin 81 mg enteric coated tablet Take 1 tablet (81 mg total) by mouth every morning Active acetaminophen (TYLENOL ORAL) Take 1 Dose by mouth as needed Active losartan (COZAAR) 25 mg tablet Take 1 tablet (25 mg total) by mouth daily 30 tablet 11 4 10/24/19 25 Active benzonatate (TESSALON) 200 mg capsuleIndicatio ns:Acute cough Take 1 capsule (200 mg total) by mouth 3 (three) times a day as needed for cough 30 capsule 4 Active Additional Information Patient not taking.Reported on 02/13/2024 dutasteride (AVODART) 0.5 mg capsule Take 1 capsule (0.5 mg total) by mouth daily 4 Active furosemide (LASIX) 20 mg tablet Take 1 tablet (20 mg total) by mouth daily Active metoprolol XL (TOPROL-XL) 25 mg extended release tabletIndication s:Persistent atrial fibrillation (HCC) TAKE 1 TABLET (25 MG TOTAL) BY MOUTH DAILY. 90 tablet 2 4 05/26/20 25 Active Active Problems Problem Noted Date Diagnosed Date Persistent atrial fibrillation 03/27/2022 LOVING (dyspnea on exertion) 11/28/2021 Chest discomfort 11/28/2021 CKD (chronic kidney disease) 03/16/2021 JACQUES on CPAP 03/16/2021 Chronic anticoagulation 10/12/2020 Pacemaker 09/17/2020 Overview (09/17/2020): Biotronik Dual Pacemaker-Edora. Dx. First/Second Degree AVB, RBBB. DOI 09/16/2020-[employer]. [employer] Home Monitor. First degree AV block 08/16/2020 History of pulmonary embolism 08/16/2020 History of DVT (deep vein thrombosis) 08/16/2020 Assessment & Plan (02/13/2024 2:50 PM CDT): History of multiple DVT/prior PE with factor 5 Leiden. Discussed findings with the patient and his , he likely has a component of post thrombotic syndrome of the left lower extremity. He has very compliant with his compression therapy, I agree with lifelong anticoagulation at this point I would not recommend further testing in the left lower extremity as he has had chronic disease on prior duplex. Can follow up with me as needed. Deep vein thrombosis (DVT) (CMS/HCC) 07/01/2020 Overview (07/01/2020): Added automatically from request for surgery [id number] Subjective tinnitus of both ears 06/24/2020 Persistent postural-perceptual dizziness 020 2nd degree AV block 05/13/2020 RBBB 05/13/2020 Dizziness 05/13/2020 Multiple subsegmental pulmon bryan emboli without acute cor pulmonale 05/13/2020 Factor V Leiden 05/13/2020 Assessment & Plan (02/13/2024 2:50 PM CDT): Stable continue Eliquis PVC's (premature ventricular contractions) 05/13 Orthostasis 05/13/2020 Encounters Date Type Department Care Team Description 07/08/2024 Orders Only [facility] [address] [place] [phone] Marshall Lauren MD 2nd degree AV block (Primary Dx); First degree AV block; Pacemaker; Persistent atrial fibrillation (HCC) 06/24/2024 10:00 AM INVASIVE MANAGER Ancillary Procedure [facility] [address] [place] [address] [place] [phone] Pacemaker (Primary Dx); First degree AV block; 2nd degree AV block; RBBB; Persistent atrial fibrillation (HCC) from Last 3 Months Surgical History Surgery Date Site/Laterality Comments NEPHRECTOMY 07/16/1996 - 07/15/[address] Niño, for kidney cancer KNEE ARTHROSCOPY 30+ years ago Medical History Medical History Date Comments DVT (deep venous thrombosis) (CMS/HCC) (HCC) 200 7 Pulmonary emboli (HCC) 04/2020 Extensive LLE DVT and bilat PEs Factor V Leiden ([facility]) Frequent PVCs History of kidney cancer 1996 s/p nep hrectomy? Irregular heart beat Sleep apnea AV block, 2nd degree Family History Medical History Relation Name Comments Factor V Leiden Daughter Coronary artery disease Father Blood Clot Mother Hyperlipidemia Mother pacemaker Mother Lung cancer Other Sibling Anesthesia problems Neg Hx Relation Name Status Comments Daughter Father Mother Other Social History Tobacco Use Types Packs/Day Years Used Date Smoking Tobacco: Never Smokeless Tobacco: Never Tobacco Cessation:Counseling Given: Not Answered Alcohol Use Standard Drinks/Week Comments Never 0 (1 standard drink = 0.6 oz pur e alcohol) AUDIT-C Answer Date Recorded Q1: How often do you have a drink containing alc ohol? Never 05/13/2020 Average Number of Drinks Not on file 020 Frequency of Binge Drinking Not on file 04/16 Sex and Gender Information Value Date Recorded Sex Assigned at Not on file Legal Sex Male 11:40 AM CDT Gender Identity Not on file Sexual Orientation Not on file Obstetrics History Last Filed Vital Signs Vital Sign Reading Time Taken Comments Blood Pressure 118/72 05/13/2024 10:45 AM CDT Pulse 76 05/13/2024 10:45 AM CDT Temperature 37 C (98.6 F) 12/11/2023 10:55 AM CDT Respiratory Rate 18 12/11/2023 10:55 AM CDT Oxygen Saturation 92% 05/13/2024 10:45 AM CDT Inhaled Oxygen Concentration - - Weight 100.7 kg (222 lb) 05/13/2024 10:45 AM CDT Height 180.3 cm (5' 11 ) 05/13/2024 10:45 AM CDT Body Mass Index 30.96 05/13/2024 10:45 AM CDT Plan of Treatment Health Maintenance Due Date Last Done Comments Depression Screening 1945 Hepatitis C Screening 1945 Hepatitis B Screening 1963 Pneumococcal vaccine 65+ (1 of 1 - PCV) 1995 Zoster Vaccine (1 of 2) 1995 Well Visit 65+ 2010 Fall Risk Assessment 07/07/2021 07/07/2020 Influenza Vaccine (#1) 2024 05/21/2018 DTaP/Tdap/Td Vaccine (2 - Td or Tdap) 10/07/2028 Procedures Procedure Name Priority Date/Time Associated Diagnosis Comments DEVICE CHECK - REMOTE Routine 07/08/2024 11:10 AM INVASIVE MANAGER First degree AV block 2nd degree AV block RBBB Persistent atrial fibrillation (HCC) from Last 3 Months Results * DEVICE CHECK - REMOTE (07/08/2024 11:10 AM INVASIVE MANAGER) Anatomical Region Laterality Modality Other Narrative 08/08/2024 8:59 AM INVASIVE MANAGER Biotronik Dual Pacemaker-Edora. Dx. First/Second Degree AVB, RBBB. DOI 09/16/2020-[facility]. [employer] Home Monitor. Routine VDDR Pacemaker Remote. Transmission attached. Battery status: OK, 65% remaining battery life to MIKAELA. Stable lead impedances, pacing and sensing thresholds. Presenting rhythm: AFib/TECHNICAL SERVICE REPRESENTATIVE TECHNICAL SERVICE REPRESENTATIVE-78% 1 AT/AF episodes noted, longest episode was 24 hours per day in duration, IEGM demonstrates AFib. AF [place] 100%. No Ventricular high rate episodes detected. Medications: Eliquis 5 mg, ASA 81 mg, losartan 25 mg, Toprol-XL 25 mg See scanned report. Office pacemaker follow up: 09/24/24 Biotronik remote f/u 6 months. Wei Feliciano RN us Marshall Lauren MD CV CARDIAC SERVICES PROC EDURES Final Result from Last 3 Months Insurance [address] [id number] MEDICARE SOLUTIONS MEDICARE [facility] Address: [address] [address] [place] [address] [facility] MEDICARE SOLUTIONS Care Teams Apparel Machinery Instructor Relationship Specialty Start Date End Date Rukhsana Lee DO PCP - General Family Medicine 04/20/20 Referral, Self Referring Physician Otolaryngology 06/24/20
--- OUTSIDE RECORDS SUMMARY | 2024-09-02 13:36 | XMS_ITS | Referral Summary ---
Author Organization [facility] [place] [address] Address [address] [place] [address] Care Team Providers Care Skidder Runner Name Role Phone Rukhsana Lee DO Primary Care Provider +1- [phone] Referral, Self Unavailable Unavailable Encounters Date Type Department Care Team Description 07/08/2024 Orders Only [facility] Medical [facility] [address] [place] [phone] Marshall Lauren MD 2nd degree AV block (Primary Dx); First degree AV block; Pacemaker; Persistent atrial fibrillation (HCC) 06/24/2024 10:00 AM RETIREMENT VILLAGE MANAGER Ancillary Procedure [facility] [address] [place] [phone] Pacemaker (Primary Dx); First degree AV block; 2nd degree AV block; RBBB; Persistent atrial fibrillation (HCC) from Last 3 Months Allergies No known active allergies Medications tamsulosin [...] Pacemaker-Edora. Dx. First/Second Degree AVB, RBBB. DOI 09/16/2020-[facility]. Bi[employer]ronik Home Monitor. First degree AV block 08/16/2020 [...] (07/01/2020): Added automatically from request for surgery [id number] Subjective tinnitus of both ears 06/24/2020 Persistent postural-perceptual dizziness 020 2nd degree AV block 05/13/2020 RBBB 05/13/2020 Dizziness 05/13/2020 Multiple subsegmental pulmon bryan emboli without acute cor pulmonale 05/13/2020 Factor V Leiden 05/13/2020 Assessment & Plan (02/13/2024 2:50 PM CDT): Stable continue Eliquis PVC's (premature ventricular contractions) 05/13 Orthostasis 05/13/2020 Social History Tobacco Use Types Packs/Day Years Used Date Smoking Tobacco: Never Smokeless Tobacco: Never Tobacco Cessation:Counseling Given: Not Answered Alcohol Use Standard Drinks/Week Comments Never 0 (1 standard drink = 0.6 oz pur e alcohol) AUDIT-C Answer Date Recorded Q1: How often do you have a drink containing alc ohol? Never 05/13/2020 Average Number of Drinks Not on file Frequency of Binge Drinking Not on file 04/16 Sex and Gender Information Value Date Recorded Sex Assigned at Not on file Legal Sex Male 11:40 AM CDT Gender Identity Not on file Sexual Orientation Not on file Last Filed Vital Signs Vital Sign Reading [...] 05/13/2024 10:45 AM CDT Plan of Treatment Not on file Procedures Procedure Name Priority Date/Time Associated Diagnosis Comments DEVICE CHECK - REMOTE Routine 07/08/2024 11:10 AM RETIREMENT VILLAGE MANAGER First degree AV block 2nd degree AV block RBBB Persistent atrial fibrillation (HCC) from Last 3 Months Results * DEVICE CHECK - REMOTE (07/08/2024 11:10 AM RETIREMENT VILLAGE MANAGER) Anatomical Region Laterality Modality Other Narrative 08/08/2024 8:59 AM RETIREMENT VILLAGE MANAGER Biotronik Dual Pacemaker-Edora. Dx. First/Second Degree AVB, RBBB. DOI 09/16/2020-[employer]. Biotronik Home Monitor. Routine VDDR Pacemaker Remote. Transmission attached. Battery status: OK, 65% remaining battery life to MIKAELA. Stable lead impedances, pacing and sensing thresholds. Presenting rhythm: AFib/DOCTOR'S ASSISTANT DOCTOR'S ASSISTANT-78% 1 AT/AF episodes noted, longest episode was 24 hours per day in duration, IEGM demonstrates AFib. AF [place] 100%. No Ventricular high rate episodes detected. Medications: Eliquis 5 mg, ASA 81 mg, losartan 25 mg, Toprol-XL 25 mg See scanned report. Office pacemaker follow up: 09/24/24 Biotronik remote f/u 6 months. Wei Feliciano RN Marshall Lauren MD [facility] Final Result from Last 3 Months Insurance MEDICARE SOLUTIONS MEDICARE [facility] MEDICARE SOLUTIONS Care Teams Skidder Runner Relationship Specialty Start Date End Date Rukhsana Lee DO PCP - General Family Medicine 04/20/20 Referral, Self Referring Physician Otolaryngology 06/24/20
--- OUTSIDE RECORDS SUMMARY | 2024-09-02 13:36 | XMS_ITS | Data Portability ---
Author Organization [facility] OFFICE Address [address] [place] [address] Care Team Providers Care Recording Studio Intern Name Role Phone CRISTINO LOVETT Primary Care Provider CRISTINO LOVETT Referring Provider Assessment No assessment recorded. Plan of Treatment Reminders Order Date Submit Date Provider Last Modified By Organization Details Last Modified Time Details Appointments None recorded. Lab None recorded. Referral None recorded. Procedures None recorded. Surgeries None recorded. Imaging electrocar diogram 2019 Not available 0 08:38:46 Medication Orders aspirin 81 mg tablet,del ayed release 2019 INTERFACE [facility] [id number] In [facility], [facility] [place], [address], 0 15:20:02 Patient TargetsNo targets recorded. Patient Instructions Encounter Date Encounter Id Patient Instructions Last Modified By Organization Details Last Modified Time 05/24/2020 [id number] Exercise advised Low cholesterol diet advised Low sodium diet advised [email or web address] Not available 05/24/2020 14:25:07 Scribed by Jennifer Patino [facility]- [email or web address] Not available 05/24/2020 14:25:10 06/07/2020 [id number] Exercise advised Low cholesterol diet advised Low sodium diet advised [email or web address] Not available 06/07/2020 15:13:25 Scribed by Jennifer Patino [facility]- [email or web address] Not available 06/07/2020 15:13:34 Reason for Referral None Reported. Results Created Date Observation Date Name Description Value Unit Range Abnormal Flag Note LastModifiedBy Organization Detail LastModifiedTime 05/06/2005/05/2020 US, echoc ardio gram No observ ation record ed. [email or web address] Not Available 2019 12:31:35 05/06/2005/05/2020 US, echoc ardio gram No observ ation record ed. alex [facility] [address], [place], [address], 05/07/2020 09:04:57 05/25/2005/04/2020 CT, angio gram, chest , w/wo contr ast No observ ation record ed. Not Available 2019 17:04:00 05/25/2005/04/2020 US, jennifer herrera s, lower extre mity No observ ation record ed. Not Available 2019 17:05:30 05/25/20 20 05/05/2020 elect rocar diogr am No observ ation record ed. Not Available 2019 17:13:45 05/27/2005/24/2020 elect rocar diogr am No observ ation record ed. Not Available 2019 15:22:32 06/17/20 20 06/16/2020 angio gram (PROC ) No observ ation record ed. [email or web address] Not Available 2019 10:33:17 06/22/20 20 06/16/2020 angio gram (PROC ) No observ ation record ed. [email or web address] Not Available 2019 08:52:08 Result Notes None recorded. Problems Name Problem SNOMED Code Status Onset Date Resolution Date Notes Provider Name and Address Organization Details Recorded Time Sleep apnea 83129468 Active Cristina Barre null, [place] - [facility] 0 09:34:31 Pulmonary embolism 46991266 Active Crist[place] - [facility] 0 09:34:42 Deep venous thrombosis 891898647 Active Cristina [place] - [facility] 0 09:34:49 Gastroesophage al reflux disease 387095159 Active Cristina Brianne null, [place] - [facility] 0 09:34:58 Atrioventricul ar block 932295258 Active Cristina Decker [place], [place] - [facility] 0 09:35:18 General unsteadiness 100493324 Active Cristina bauer, [place] - [facility] 0 09:35:43 Problem Notes None recorded. Procedures Surgical History None recorded. Imaging Results Imaging Date Name Status LastModified by Organization Details LastModified Time 05/05/2020 US, echocardiogram completed [email or web address] Inform ation not available 05/06/2020 12:31:35 05/05/2020 US, echocardiogram completed [email or web address] [address], [place], [address], 05/07/2020 09:04:57 05/04/2020 CT, angiogram, chest, w/wo contrast completed Information not available 05/25/2020 17:04:00 05/04/2020 US, duplex, venous, lower extremity completed Information not available 05/25/2020 17:05:30 05/05/2020 electrocardiogram completed Informa tion not available 05/25/2020 17:13:45 05/24/2020 electrocardiogram completed Informa tion not available 05/27/2020 15:22:32 06/16/2020 angiogram (PROC) completed [email or web address] Informat ion not available 06/18/2020 10:33:17 06/16/2020 angiogram (PROC) completed Informat ion not available 06/26/2020 08:52:08 Procedure Notes None recorded. Medical Equipment None Reported. Allergies No known drug allergies Medications Name Sig Start Date Stop Date Status Note LastModified by Organization Details LastModified Time doxycyclin e hyclate 100 mg capsule 05/24 completed Not Available Not Available Not Available cephalexin 250 mg capsule 05/24 completed Not Available Not Available Not Available aspirin 81 mg tablet,del ayed release Take 1 tablet every day by oral route. 2019 active Not Available Not Available Not Avai lable triamcinol one acetonide 0.1 % topical cream 05/24 completed Not Available Not Available Not Available amoxicilli n 875 mg tablet 05/24 completed Not Available Not Available Not Available tamsulosin 0.4 mg capsule Take 1 capsule every day by oral route as directed . active Not Available Not Available No t Available prednisone 50 mg tablet 05/24 completed Not Available Not Available Not Available promethazi ne 25 mg tablet 05/24 completed Not Available Not Available Not Available methylpred nisolone 4 mg tablets in a dose pack 05/24 completed Not Available Not Available Not Available finasterid e 5 mg tablet Take 1 tablet every day by oral route as directed . active Not Available Not Available No t Available eszopiclon e 2 mg tablet 06/07 completed pt is no longer taking 020 rl Not Available Not Available Not Available Eliquis 5 mg tablet TAKE 1 TABLET BY MOUTH TWICE A DAY active Not Available Not Available No t Available Vitals Date Recorded Body temperature Body height Body mass index (BMI) Body weight Heart rate Oxygen saturation Oxygen saturation in Arterial blood by Pulse oximetry Systolic blood pressure Diastolic blood pressure Provider Name and Address Organization Details Last Updated DateTime 0 97.6 [degF] 180.34 cm 30.6 kg/m2 86180.5 3 g 70 /min 97 % 97 % 132 mm[Hg] 80 mm[Hg] Cristina Decker [facility] 0 14:49:20 Date Recorded Body height Body mass index (BMI) Body weight Heart rate Oxygen saturation Oxygen saturation in Arterial blood by Pulse oximetry Body temperature Systolic blood pressure Diastolic blood pressure Provider Name and Address Organization Details Last Updated DateTime 0 180.34 cm 31.2 kg/m2 463535. 61 g 58 /min 96 % 96 % 93.6 [degF] 120 mm[Hg] 70 mm[Hg] Jennifer Patino [facility] 0 15:08:44 Social History Question Answer Notes LastModified by Organizat ion Details LastModified Time Tobacco Smoking Status Never Smoker Cristina Decker [facility] 05/24/2020 14:44:50 What Is Your Level Of Alcohol Consumption? None [email or web address] Information not available 05/24/2020 What Is Your Level Of Caffeine Consumption? None [email or web address] Information not available 05/24/2020 How Much Tobacco Do You Chew? None [email or web address] Information not available 05/24/2020 What Type Of Diet Are You Following? REGULAR [email or web address] Information not available 05/24/2020 Which Illicit Or Recreational Drugs Have You Used? None [email or web address] Information not available 05/24/2020 Do You Or Have You Ever Used E-cigarettes Or Vape? Never Used Electronic Cigarettes [email or web address] Information not available 05/24/2020 What Is Your Occupation? Retired [email or web address] Information not available 05/24/2020 Live Alone Or With Others? With Others [email or web address] Information not available 05/24/2020 Marital Status [email or web address] Informatio n not available 05/24/2020 What Was The Date Of Your Most Recent Tobacco Screening? 05/24/2020 Information not available 06/06/2020 How Many Children Do You Have? 3 [email or web address] Information not available 05/24/2020 Do You Or Have You Ever Used Smokeless Tobacco? Never Used Smokeless Tobacco [email or web address] Information not available 05/24/2020 How Much Tobacco Do You Smoke? No [email or web address] Information not available 05/24/2020 General Stress Level Medium [email or web address] Information not available 05/24/2020 How Many Years Have You Smoked Tobacco? 0 01 Information not available 06/15/2020 Sex: Unknown Functional Status Question Answer Note LastModified by Organizat ion Details LastModified Time What is your exercise level? Occasional [email or web address] Information not available 05/24/2020 Mental Status None recorded. Family History Relationship Description Onset Age of this Age Resolved Age Notes LastModified by Organization Details LastModified Time Sister Cerebrovascu lar accident [email or web address] Not available 14:44:11 Mother Blood coagulation disorder [email or web address] Not available 05/24 14:44:45 Maternal Grandfather Blood coagulation disorder [email or web address] Not available 05/24 14:44:45 Medical History Condition Response Deep Vein Thrombosis Y Sleep Apnea Y GERD/Reflux Y Past Encounters Encounter ID Performer Location Encounter Start Date Encounter Closed Date Diagnosis/Indication Diagnosis SNOMED-CT Code Diagnosis ICD10 Code Diagnosis Note [id number] Bharathi Copeland MD [facility] [address] [place] [phone] 0 05/24/2020 14:30:25 05/24/2020 15:20:42 Follow-up visit 032878133 Z09 Deep venou s thrombosis 787095676 I82.409 on Eliquis 5mg BID, will add ASA 81mg daily 05/24/2020 .Repeat venous doppler at [facility] showed persistent DVTs in CFV and GSVConside r IVUS Pulmonary embolism 38696 003 I26.99 on Eliquis and ASA as aboveDenie s dyspneaWil l need follow-up chest CTA at subsequent visit Atrioventr icular block 968717371 I44.30 in NSR 05/24/2020 Dizziness likely 2/2 inner ear issue, recommend follow-up with ENT.Will continue to closely monitor and consider PPM if appropriat e Obstructiv e sleep apnea syndrome 82448717 G47.33 Positive sleep study while hospitaliz edNeeds set up with CPAP [id number] Bharathi Copeland MD [facility] [address] [place] [phone] 06/07/2020 15:02:57 06/07/2020 16:06:32 Deep venous thrombosis 893051705 I82.409 on Eliquis 5mg BID and ASA 81mgRepeat venous doppler 05/04/2020 at [facility] showed persistent DVTs in CFV and GSVWill plan for IVUS Pulmonary embolism 80342 003 I26.99 on Eliquis and ASA as aboveDenie s dyspneaWil l need follow-up chest CTA at subsequent visit Atrioventr icular block 669108444 I44.30 in NSR 05/24/2020 Dizziness likely 2/2 inner ear issue, recommend follow-up with ENT.Will continue to closely monitor and consider PPM if appropriat e Obstructiv e sleep apnea syndrome 90835061 G47.33 Will have CPAP setup with PCP Health Concerns Section Related Observation LastModified by Organization Detai ls LastModified Time None Recorded Concern Status LastModified by Organization Details LastModified Time None Recorded Advance Directives Directive None Recorded Payers Encounter Date Sequence Insurance Name Policy Number Policy Talavera Covered Member ID Talavera Member ID Guarantor Name 05/24/2020 2 [facility] (MEDICARE SUPPLEMENT) Jose Baxter [id number] Jose Baxter 05/24/2020 1 [place] Jose Baxter [id number] Jose Baxter 06/07/2020 2 [employer] OPTIONS (MEDICARE SUPPLEMENT) Jose Baxter [id number] Jose Baxter 06/07/2020 1 [place] Jose Baxter [id number] Jose Baxter Notes Date Note Type Note Provider Name and Address Organization Details Recorded Time 05/24/2020 text/html 05/24/20 74 years-old Male with h/o DVT (2006), Factor V Leiden, frequent PVCs, JACQUES, and CKD was referred for cardiac evaluation from [facility]. He had DVT with bilateral PE on 05/04/2020. He was discharged on Eliquis. Today he has persistent swelling and erythema. He denies pain. He feels his swelling is somewhat better but calf remains tight with some warmth to touch. He was also noted to have possible complete AV block and may need PPM placement in the future. However, his EKG shows NSR. He reports some persistent dizziness and has been previously evaluated by ENT. He admits he is not very active d/t dizziness. No chest pain. No shortness of breath at rest. No dyspnea on exertion. No orthopnea. No PND's. No dizziness. No palpitation. No syncope or near syncope. No nausea and vomiting. No side effects from medications. *Had ECHO done in 05/05/20 showed normal LV systolic function, EF 55-60%,Mild tricuspid valve regurgitation. Results from this visit, or from the past: 05/05/20208708-xhmw-Fv m:1.Right ventricular chamber dimension is upper limits of normal.2.Thin and hypermobile.3.No pulmonary hypertension,estim ated pulmonary arterial systolic pressure is 29 mmHg.4.Normal inferior vena cava with >50% collapse upon inspiration consistent with normal right atrial pressure,5 mmHg.5.Left ventricular systolic function is normal,estimated at 55-60%.6.global longitudinal strain is mildly elevated at-16%.7. Right atrial chamber dimension is mildly enlarged.8.There is mild mitral valve regurgitation.9.Th ere is mild tricuspid valve regurgitation.10.R ight ventricular systolic function is normal. Bharathi Copeland MD [address] [place], [address], [facility] 05/24/2020 15:20:40 06/07/2020 text/html 06/07/2020 CC: leg swelling 75 years-old Male with h/o DVT (2006, 05/04/2020), Factor V Leiden, frequent PVCs, JACQUES, and CKD who presents for follow up. He was last seen in clinic 2 weeks ago on 05/24/2020 for a hospital follow up. At that visit he reported he has persistent swelling and erythema. He feels his swelling is somewhat better but calf remains tight with some warmth to touch. His right leg continues to measure 22 inches with his left leg measuring 19.5 inches. He has occasionally pain in that leg. Reports he has been walking more frequently. No tenderness on palpation but remains tight. He was started on ASA 81mg daily. He had DVT with bilateral PE on 05/04/2020. He was discharged on Eliquis. He was also noted to have possible complete AV block and may need PPM placement in the future. However, his EKG shows NSR. He reports some persistent dizziness and has been previously evaluated by ENT. He admits he is not very active d/t dizziness. No chest pain. No shortness of breath at rest. No dyspnea on exertion. No orthopnea. No PND's. No dizziness. No palpitation. No syncope or near syncope. No nausea and vomiting. No side effects from medications. Had ECHO done in 05/05/20 showed normal LV systolic function, EF 55-60%,Mild tricuspid valve regurgitation. 05/04/20 CTA: Acute pulmonary emboli in the left upper lower lobes as well as the right lower lobe. These findings were discussed with Raghu in the ED on 05/04/20 05/04/20 MAYKEL DOP: Deep venous thrombosis throughout the visualized left lower limb veins. Results from this visit, or from the past: 05/06/20 M.010 BMP: NA 137, K 4.1, CL 104, CO2 27, GLU 106, BUN 23, CR 1. PT/INR: PT 14.5, INR 1.210 CBC: WBC 9.2, HGB 15.5, HCT 46.3, PLT 138 05/24/20 EKG: NSR1 EKG: Sinus rhythm with 1st degree AV block. Ventricular premature complexes. Left axis deviation. RBBB. Abnormal EKG 05/05/20205532-ainf-Lr m:1.Right ventricular chamber dimension is upper limits of normal.2.Thin and hypermobile.3.No pulmonary hypertension,estim ated pulmonary arterial systolic pressure is 29 mmHg.4.Normal inferior vena cava with >50% collapse upon inspiration consistent with normal right atrial pressure,5 mmHg.5.Left ventricular systolic function is normal,estimated at 55-60%.6.global longitudinal strain is mildly elevated at-16%.7. Right atrial chamber dimension is mildly enlarged.8.There is mild mitral valve regurgitation.9.Th ere is mild tricuspid valve regurgitation.10.R ight ventricular systolic function is normal. 05/04/20 MAYKEL DOP: Deep venous thrombosis throughout the visualized left lower limb veins. 05/04/20 CTA: Acute pulmonary emboli in the left upper lower lobes as well as the right lower lobe. These findings were discussed with Raghu in the ED on 05/04/20 Bharathi Copeland MD [address] [place], [address], [facility] 06/07/2020 16:06:29
--- OUTSIDE RECORDS SUMMARY | 2024-09-02 13:36 | XMS_ITS | Encounter Summary ---
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 Office Visit [facility] - [place] [address] [facility] [address] [place] [address] Gregorio Trujillo MD [address] [facility] [address] [place] [address] Chronic anemia (Primary Dx) Social History Tobacco Use Types Packs/Day Years Used Date Smoking Tobacco: Never Smokeless Tobacco: Never Tobacco Cessation:Counseling Given: Not Answered Alcohol Use Standard Drinks/Week Comments Never 0 (1 standard drink = 0.6 oz pur e alcohol) Sex and Gender Information Value Date Recorded Sex Assigned at Not on file Legal Sex Male 10:08 AM PUBLIC 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1 kg (231 lb 12.8 oz) 09/01/2024 1:01 PM PUBLIC EVENTS FACILITIES RENTAL MANAGER Height - - Body Mass Index 31.44 07/24/2024 3:15 PM PUBLIC EVENTS FACILITIES RENTAL MANAGER documented in this encounter Progress Notes * Gregorio Trujillo MD - 09/01/2024 1:03 PM CST HEMATOLOGY / ONCOLOGY PROGRESS NOTE Patient Identification: Name: Jose Baxter Age: 79 y.o. Sex: male : 1945 DIAGNOSIS Thrombocytopenia CURRENT TREATMENT Expectant TREATMENT HISTORY SUBJECTIVE Patient came into the office for follow-up visit. He denies any bleeding and bruising. Denies any chest pain and shortness of breath. Weight and appetite stable. No other new complaints. Review of system Constitutional: Patient did not mention fevers, sweats, fatigue, malaise, weight loss HEENT: Patient did not mention sinus congestion, hearing or vision problems Respiratory: Patient did not mention cough, dyspnea, wheeze Cardiovascular: Patient did not mention chest pain, exertional chest pressure/discomfort, nausea, syncope, shortness of breath GI: Patient did not mention constipation, diarrhea, dsyphagia, reflux symptoms, vomiting, melena : Patient did not mention dysuria, frequency, incontinence, urgency Integumentary system: no lymphadenopathy, sweats, flushing Musculoskeletal: Patient not mention: myalgia, arthralgia Neurological: Patient did not mention blurry or disturbed vision, numbness/weakness, dizziness Skin: No lumps, bumps or rashes. Objective: Vital signs in last 24 hours: As per nursing note Exam: General appearance: alert, cooperative, no distress, appears stated age Head: normocephalic, without obvious abnormality, atraumatic Eyes: conjunctivae/corneas clear, EOM's intact Ears: normal external ear canals AU Nose: Nares normal. Septum midline. Mucosa normal. No drainage or sinus tenderness Throat: Lips, mucosa, and tongue normal. Teeth and gums normal Neck: supple, symmetrical, trachea midline. Lungs: clear to auscultation bilaterally Heart: regular rate and rhythm, S1, S2 normal, no murmur, click, rub or gallop Abdomen: soft, non-tender. Bowel sounds normal. No masses, No organomegaly Extremities: extremities normal, atraumatic, no cyanosis or edema Skin: Skin color, texture, turgor normal. No rashes or lesions Lymph nodes: No lymphadenopathy Neuro: No obvious focal deficit PATH LABS Labs from July 24 showed WBC 6.1 hemoglobin 15.4 platelet 211,000 creatinine 1.4 total bilirubin 1.1 B12 481 platelet antibodies negative soluble transferrin receptor elevated at 2.0 methylmalonic acid elevated at 479 iron studies are normal. @IMAGEIMP@ Assessment: Plan: There are no active problems to display for this patient. Thrombocytopenia. Abdominal ultrasound showed splenomegaly. Platelet antibodies negative. Likely etiology for thrombocytopenia as a splenomegaly. I recommended regular exercise and weight loss. I also suggested to contact latin dancer to discontinue baby aspirin. He is also on Eliquis for atrial fibrillation that he can continue at the current dose as long as platelet count is more than 100,000. Vitamin B12 and iron deficiency. He will start taking oral iron 65 mg daily with vitamin B12 500 mcg daily. I will repeat labs again in 6 months. Atrial fibrillation. Stable on Eliquis. Sleep apnea. Stable on CPAP machine. Renal insufficiency. Patient has a history of nephrectomy due to renal cell carcinoma in the past. Kidney function is stable. ? TOBACCO COUNSELING He is not a tobacco/nicotine user. 09/01/2024 Gregorio Trujillo MD IC EVENTS FACILITIES RENTAL MANAGER documented in this encounter Plan of Treatment Upcoming Encounters Date Type Department Care Team (Late st Contact Info) Description 03/04/2025 1:00 PM CDT Office Visit [facility] - [place] [address] [facility] [address] [place] [address] Gregorio Trujillo MD [address] [facility] [address] [place] [address] Scheduled Orders Name Type Priority Associated Diagnoses Orde r Schedule CBC WITH DIFFERENTIAL Lab Stat Chronic anemia Expected: 03/01/2025, Expires: 09/01/2025 IRON, TIBC, AND PERCENT SATURATION Lab Routine Chronic anemia Expected: 03/01/2025, Expires: 09/01/2025 VITAMIN B12 AND FOLATE Lab Routine Chronic anemia Expected: 03/01/2025, Expires: 09/01/2025 METHYLMALONIC ACID Lab Routine Chronic anemia Expected: 03/01/2025, Expires: 09/01/2025 TRANSFERRIN RECEPTOR TFR SOLUBLE Lab Routine Chronic anemia Expected: 03/01/2025, Expires: 09/01/2025 documented as of this encounter Visit Diagnoses Diagnosis Chronic anemia- Primary Anemia, unspecified documented in this encounter Care Teams Specification Writer Relationship Specialty Start Date End Date Rukhsana Lee DO [address] [facility] [address] [place] [id number] PCP - General Family Practice 07/25/24 documented as of this encounter
--- OUTSIDE RECORDS SUMMARY | 2024-09-02 13:36 | XMS_ITS | Clinical Summary ---
Author Organization [facility] Sunil lux Raya Address [address] [place] [address] Care Team Providers Care Account Support Manager Name Role Phone Rukhsana Lee DO Primary Care Provider +1- [phone] Allergies No known active allergies Medications Eliquis 5 mg tablet Take 1 Tablet by mouth 2 times daily. 05/14/2024 Active aspirin (ECOTRIN EC) 81 mg Tablet, Delayed Release (E.C.) Take 81 mg by mouth daily. Active dutasteride (AVODART) 0.5 mg Capsule Take 0.5 mg by mouth daily. Active losartan (COZAAR) 25 mg tablet Take 25 mg by mouth daily. Active metoprolol succinate (TOPROL XL) 25 mg Extended Release 24 hour tablet Take 25 mg by mouth daily. 05/26/2024 Active tamsulosin (FLOMAX) 0.4 mg capsule Take 0.4 mg by mouth daily. 07/04/2024 Active Active Problems No known active problems Encounters Date Type Department Care Team Description 09/01/2024 1:00 PM DIETARY AID Office Visit [facility] Oncology and Hematology - [place] [address] [place] [address] Gregorio Trujillo MD Chronic anemia (Primary Dx) 08/12/2024 External Device Data STL ABSTRACTION Provider, Abstract 08/07/2024 Orders Only [facility] Oncology and Hematology - [place] [address] [place] [address] Gregorio Trujillo MD 08/06/2024 External Device Data STL ABSTRACTION Provider, Abstract 08/06/2024 External Device Data STL ABSTRACTION Provider, Abstract 07/30/2024 External Device Data STL ABSTRACTION Provider, Abstract 07/29/2024 External Device Data STL ABSTRACTION Provider, Abstract 07/29/2024 Orders Only [facility] Oncology and Hematology - [place] [address] [place] [address] Gregorio Trujillo MD 07/28/2024 Orders Only [facility] Oncology and Hematology - [place] [address] [place] [address] Gregorio Trujillo MD 07/25/2024 Abstract [facility] Oncology and Hematology - [place] [address] [place] [address] Gregorio Trujillo MD 07/25/2024 Orders Only [facility] Oncology and Hematology - [place] [address] [place] [address] Gregorio Trujillo MD 07/24/2024 3:00 PM DIETARY AID Office Visit [facility] Oncology and Hematology - [place] [address] [place] [address] Gregorio Trujillo MD Other secondary thrombocytopenia (Primary Dx); Chronic anemia from Last 3 Months Family History Medical History Relation Name Comments Lung Cancer Brother No Known Problems Child 1 No Known Problems Child 2 No Known Problems Child 3 COPD Father Heart Disease Mother Heart Disease Sister 1 No Known Problems Sister 2 Relation Name Status Comments Brother Child 1 Alive Child 2 Alive Child 3 Alive Father Mother Sister 1 Sister 2 Alive Social History Tobacco Use Types Packs/Day Years Used Date Smoking Tobacco: Never Smokeless Tobacco: Never Tobacco Cessation:Counseling Given: Not Answered Alcohol Use Standard Drinks/Week Comments Never 0 (1 standard drink = 0.6 oz pur e alcohol) Sex and Gender Information Value Date Recorded Sex Assigned at Not on file Legal Sex Male 10:08 AM DIETARY AID Gender Identity Not on file Sexual Orientation Not on file Last Filed Vital Signs Vital Sign Reading Time Taken Comments Blood Pressure 107/64 09/01/2024 1:01 PM DIETARY AID Pulse 73 09/01/2024 1:01 PM DIETARY AID Temperature 36.7 C (98 F) 09/01/2024 1:01 PM DIETARY AID Respiratory Rate 15 09/01/2024 1:01 PM DIETARY AID Oxygen Saturation 96% 09/01/2024 1:01 PM DIETARY AID Inhaled Oxygen Concentration - - Weight 105.1 kg (231 lb 12.8 oz) 09/01/2024 1:01 PM DIETARY AID Height 182.9 cm (6') 07/24/2024 3:15 PM DIETARY AID Body Mass Index 31.44 07/24/2024 3:15 PM DIETARY AID Plan of Treatment Upcoming Encounters Date Type Department Care Team (Late st Contact Info) Description 03/04/2025 1:00 PM CDT Office Visit [facility] Oncology and Hematology - [place] [address] [facility] [address] [place] [address] Gregorio Trujillo MD [address] [facility] [address] [place] [address] Health Maintenance Due Date Last Done Comments DTAP/TDAP/TD VACCINES (1 - Tdap) 1964 PNEUMOCOCCAL VACCINE 65+ YEARS (1 of 1 - PCV) 05/28/19 95 ZOSTER VACCINE (1 of 2) 1995 RSV VACCINE (60+ or ) (1 - 1-dose 75+ series) 2020 INFLUENZA VACCINE (#1) 2024 [place] Prev entative Visit/Annual Wellness Visit 07/16/2024 Procedures Procedure Name Priority Date/Time Associated Diagnosis Comments US ABDOMEN COMPLETE Routine 08/07/2024 2 :24 PM DIETARY AID TRANSFERRIN RECEPTOR TFR SOLUBLE Routine 07/24/2024 3:58 PM DIETARY AID COMPREHENSIVE METABOLIC PANEL Routine 07/24/2024 3:19 PM DIETARY AID CBC WITH DIFFERENTIAL Routine 07/24/2024 3:18 PM DIETARY AID TRANSFERRIN RECEPTOR TFR SOLUBLE Routine 07/24/2024 1:14 PM DIETARY AID COMPREHENSIVE METABOLIC PANEL Routine 07/24/2024 12:48 PM DIETARY AID COMPREHENSIVE METABOLIC PANEL Routine 07/24/2024 10:03 AM DIETARY AID from Last 3 Months Results * US ABDOMEN COMPLETE (08/07/2024 2:24 PM DIETARY AID) Anatomical Region Laterality Modality Abdomen Other us Gregorio Trujillo MD US ORDERABLES Final Result * TRANSFERRIN RECEPTOR TFR SOLUBLE (07/24/2024 3:58 PM DIETARY AID) Only the most recent of2 resultswithin the time period is included. Blood Gregorio Trujillo MD CHEMISTRY ORDERABLES Final Resu lt * COMPREHENSIVE METABOLIC PANEL (07/24/2024 3:19 PM DIETARY AID) Only the most recent of3 resultswithin the time period is included. Blood Gregorio Trujillo MD CHEMISTRY ORDERABLES Final Resu lt * CBC WITH DIFFERENTIAL (07/24/2024 3:18 PM DIETARY AID) Blood Gregorio Trujillo MD HEMATOLOGY ORDERABLES Final Res ult from Last 3 Months Insurance [facility] [id number] Care Teams Account Support Manager Relationship Specialty Start Date End Date Rukhsana Lee DO [address] [facility] [address] [place] [address] PCP - General Family Practice 07/25/24
[2024-09-02 17:07] LABS: Influenza A QL RT-PCR Negative (Negative); Influenza B QL RT-PCR Negative (Negative); RSV RNA, RT-PCR Negative (Negative); SARS-CoV-2 RNA PCR Negative (Negative)
== END 2024-09-02 13:31 | disposition home or self-care (01) ==
LOC: ANHGOSHLAB 13:32
PROVIDERS: PCP Family Medicine; Visit Provider Nurse Practitioner
DX: U07.1 COVID-19 (principal)
CPT/HCPCS: 87637

== ENCOUNTER 2024-12-17 09:35 | Outpatient (CLI) | payer MEDICARE, SELFPAY ==
--- NOTE | ~2024-12-17 | XR_ITS ---
EXAMINATION: XR chest 2V 12/17/2024 09:46 INDICATION: Hemoptysis PROCEDURE: 2 view chest COMPARISON: Comparison to multiple prior studies sequentially, with oldest reviewed study dated 08/28. FINDINGS: The lungs are clear. The cardiomediastinal silhouette is within normal limits. There are no pleural effusions. There is no pneumothorax suspected. Pacemaker leads are stable. IMPRESSION: 1: NO ACUTE CARDIOPULMONARY DISEASE. Reviewed, dictated and finalized at location A.
== END 2024-12-17 09:36 | disposition home or self-care (01) ==
LOC: GOSHIMG 09:36
PROVIDERS: PCP Nurse Practitioner; Visit Provider Nurse Practitioner
DX: R04.2 Hemoptysis (principal)
CPT/HCPCS: 71046

== ENCOUNTER 2024-12-22 09:14 | Outpatient (CLI) | payer MEDICARE, SELFPAY ==
--- NOTE | ~2024-12-22 | US_ITS ---
Abdominal Sonogram: Real-time sonographic imaging of the abdomen was performed. Clinical History: Abdominal pain Findings: The liver appears normal with no evidence of mass lesion or bile duct dilatation. Main por kurtis vein demonstrates normal direction of flow. The spleen is normal in size without evidence of foca l lesion. The gallbladder is well distended, and appears normal with no evidence of gallstone or wal l thickening. The common bile duct measures 4 mm. The visualized pancreas, aorta, and IVC are unrema rkable. Left kidney measures 13.7 cm in length, without hydronephrosis or stone. Small left renal cys t present. Status post right nephrectomy. Impression: No significant abnormality seen. Status post right nephrectomy. Reviewed, dictated and finalized at location . Impression: No significant abnormality seen. Status post right nephrectomy.
== END 2024-12-22 09:15 | disposition home or self-care (01) ==
LOC: GOSHIMG 09:14
PROVIDERS: PCP Nurse Practitioner; Visit Provider Nurse Practitioner
DX: R10.9 Unspecified abdominal pain (principal); R16.1 Splenomegaly, not elsewhere classified; Z90.5 Acquired absence of kidney
CPT/HCPCS: 76700

== ENCOUNTER 2025-01-06 12:42 | Outpatient (CLI) | payer MEDICARE, SELFPAY ==
--- NOTE | ~2025-01-06 | CT_ITS ---
Clinical Indication: Hemoptysis CT Scan of the Chest, Abdomen, and Pelvis without Contrast: Technique: Contiguous sections were acquired throughout the chest, abdomen, and pelvis without IV con trast administration. Dose reduction technique was used on this scan by utilizing automated exposure control and iterative reconstruction technique. The dose-length product (DLP) was 1336.22 mGy-cm. COMPARISON: 02/28/2024 Findings: There is no evidence of any significant mediastinal, hilar or axillary lymphadenopathy. Coronary lianna ry calcifications are present. Pacemaker device present. There is no evidence of pleural or pericardial effusion. There is linear scarring in the posterior right upper lobe and in the right lower lobe. No suspicious pulmonary nodule or consolidation seen. No pneumothorax. The liver, spleen, pancreas, gallbladder, left adrenal gland, and left kidney are within normal limit s. Status post right nephrectomy and probable right adrenalectomy. There are atherosclerotic calcific ations of the aorta. No lymphadenopathy. No bowel obstruction or bowel wall thickening. There is no evidence to suggest acute appendicitis. Urinary bladder is unremarkable. There is marked prostatomegaly, indenting through the bladder base. Small bilateral fat-containing inguinal hernias are present. No ascites. Impression: No etiology for hemoptysis. Status post right nephrectomy and probable right adrenalectomy. Marked prostatomegaly. Small bilateral fat-containing hernias. Reviewed, dictated and finalized at [facility]. Impression: No etiology for hemoptysis. Status post right nephrectomy and probable right adrenalectomy. Marked prostatomegaly. Small bilateral fat-containing hernias.
== END 2025-01-06 12:43 | disposition home or self-care (01) ==
PROVIDERS: PCP Urology; Visit Provider Nurse Practitioner
DX: R04.2 Hemoptysis (principal); Q44.1 Other congenital malformations of gallbladder; N40.0 Benign prostatic hyperplasia without lower urinary tract symptoms; K40.20 Bilateral inguinal hernia, without obstruction or gangrene, not specified as recurrent
CPT/HCPCS: 71250; 74176

== ENCOUNTER 2025-03-05 00:55 | Day surgery (SDC) | payer MEDICARE, SELFPAY ==
[2025-02-27 10:34] VITALS: BMI 30.7
--- NOTE | 2025-02-27 10:58 | PC.NURSE ---
Spoke with _patient and regarding medication Eliquis. _Patient verbalizes understanding that the last dose is to be taken on 03/01/25 and the Endoscopist will instruct them when to restart after the procedure.
--- OUTSIDE RECORDS SUMMARY | 2025-03-05 00:59 | XMS_ITS | Encounter Summary ---
Author Organization [facility] Address [address] [place] [address] Care Team Providers Care Decorative Engraver Apprentice Name Role Phone Rukhsana Lee DO Primary Care Provider +1- [phone] Encounter Details Date Type Department Care Team (Late st Contact Info) Description 03/03/2025 External Device Data STL ABSTRACTION Provider, Abstract NO ADDRESS ON FILE Social History Tobacco Use Types Packs/Day Years Used Date Smoking Tobacco: Never Smokeless Tobacco: Never Alcohol Use Standard Drinks/Week Comments Never 0 (1 standard drink = 0.6 oz pur e alcohol) Sex and Gender Information Value Date Recorded Sex Assigned at Not on file Legal Sex Male 10:08 AM ASSURANCE ENGINEER Gender Identity Not on file Sexual Orientation Not on file documented as of this encounter Plan of Treatment Upcoming Encounters Date Type Department Care Team (Late st Contact Info) Description 09/09/2025 1:00 PM ASSURANCE ENGINEER Office Visit [facility] Oncology and Hematology - [place] [address] [place] [address] [address] [place] [address] Gregorio Trujillo MD [address] [facility] [address] [place] [address] documented as of this encounter Visit Diagnoses Not on filedocumented in this encounter Care Teams Decorative Engraver Apprentice Relationship Specialty Start Date End Date Rukhsana Lee DO [address] [place] [address] [address] [place] [address] PCP - General Family Practice 07/25/24 documented as of this encounter
--- OUTSIDE RECORDS SUMMARY | 2025-03-05 00:59 | XMS_ITS | Encounter Summary ---
Author Organization [facility] Address [address] [place] [address] Care Team Providers Care Calculator Operator Name Role Phone Rukhsana Lee DO Primary Care Provider +1- [phone] Encounter Details Date Type Department Care Team [...] on file Legal Sex Male 10:08 AM OCTAVE BOARD RACKER Gender Identity Not on file Sexual Orientation Not on file documented as of this encounter Plan of Treatment Upcoming Encounters Date Type Department Care Team (Late st Contact Info) Description 09/09/2025 1:00 PM OCTAVE BOARD RACKER Office Visit [facility] Oncology and Hematology - [place] [address] [place] [address] [address] [place] [address] Gregorio Trujillo MD [address] [facility] [address] [place] [address] documented as of this encounter Visit Diagnoses Not on filedocumented in this encounter Care Teams Calculator Operator Relationship Specialty Start Date End Date Rukhsana Lee DO [address] [place] [address] [address] [place] [address] PCP - General Family Practice 07/25/24 documented as of this encounter
--- OUTSIDE RECORDS SUMMARY | 2025-03-05 00:59 | XMS_ITS | Clinical Summary ---
Author Organization [facility] Sunil lux Keerthi Address [address] [place] [address] Care Team Providers Care Network Support Analyst Name Role Phone Rukhsana Lee DO Primary Care Provider +1- [phone] Allergies No known active allergies Medications Eliquis [...] Encounters Date Type Department Care Team Description 03/04/2025 1:00 PM CDT Office Visit [facility] Oncology and Hematology - [place] [address] [facility] [address] [place] [address] Gregorio Trujillo MD Chronic anemia (Primary Dx) 03/03/2025 External Device Data STL ABSTRACTION Provider, Abstract 03/03/2025 External Device Data STL ABSTRACTION Provider, Abstract 02/18/2025 External Device Data STL ABSTRACTION Provider, Abstract 01/28/2025 External Device Data STL ABSTRACTION Provider, Abstract 01/27/2025 External Device Data STL ABSTRACTION Provider, Abstract 12/30/2024 External Device Data STL ABSTRACTION Provider, Abstract 12/04/2024 External Device Data STL ABSTRACTION Provider, Abstract 12/03/2024 External Device Data STL ABSTRACTION Provider, Abstract from Last 3 Months Family History Medical [...] on file Legal Sex Male 10:08 AM FIXED CAPITAL CLERK Gender Identity Not on file Sexual Orientation Not on file Last Filed Vital Signs Vital Sign Reading Time Taken Comments Blood Pressure 102/68 03/04/2025 12:58 PM CDT Pulse 82 03/04/2025 12:58 PM CDT Temperature 36.5 C (97.7 F) 03/04/2025 12:58 PM CDT Respiratory Rate 15 09/01/2024 1:01 PM FIXED CAPITAL CLERK Oxygen Saturation 95% 03/04/2025 12:58 PM CDT Inhaled Oxygen Concentration - - Weight 104.3 kg (230 lb) 03/04/2025 12:58 PM CDT Height 182.9 cm (6') 03/04/2025 12:58 PM CDT Body Mass Index 31.19 03/04/2025 12:58 PM CDT Plan of Treatment Upcoming Encounters Date Type Department Care Team (Late st Contact Info) Description 09/09/2025 1:00 PM FIXED CAPITAL CLERK Office Visit [facility] Oncology and Hematology - [place] [address] [facility] [address] [place] [address] Gregorio Trujillo MD [address] [facility] [address] [place] [address] Health Maintenance Due Date Last Done Comments ZOSTER VACCINE (2 of 3) 01/23/2011 11/28/2010 RSV VACCINE (60+ or ) (1 - 1-dose 75+ series) 2020 [place]) Preventative Visit/Annual Wellness Visit 07/16/2024 INFLUENZA VACCINE (#1) 2025 , 04/24/2020, 05/21/2018, Additional history exists DTAP/TDAP/TD VACCINES (3 - T d or Tdap) 10/07/2028 10/07/2018, 04/09/2008 PNEUMOCOCCAL VACCINE 50+ YEARS Completed 09/02/2015 , 06/24/[address] [facility] [id number] Care Teams Network Support Analyst Relationship Specialty Start Date End Date Rukhsana Lee DO [address] [facility] [address] [place] [address] PCP - General Family Practice 07/25/24
--- OUTSIDE RECORDS SUMMARY | 2025-03-05 00:59 | XMS_ITS | Clinical Summary ---
Author Organization [facility] [address] Address [address] [place] [address] Care Team Providers Care Banquet Food Server Name Role Phone Rukhsana Lee DO Primary Care Provider +1- [phone] Referral, Self Unavailable Unavailable Allergies No known active allergies Medications Eliquis 5 mg tabletIndicatio ns:dvt Take 1 tablet (5 mg total) by mouth 2 (two) times a day 0 Active acetaminophen (TYLENOL ORAL) Take 1 Dose by mouth as needed Active dutasteride (AVODART) 0.5 mg capsule Take 1 capsule (0.5 mg total) by mouth daily 4 Active triamcinolone (KENALOG) 0.1 % cream Apply topically 2 (two) times a day as needed 5 Active cyanocobalamin, vitamin B-12, 5,000 mcg capsule Take by mouth daily Active metoprolol XL (TOPROL-XL) 50 mg extended release tablet Take 1 tablet (50 mg total) by mouth daily 90 tablet 2 5 09/26/19 Active losartan (COZAAR) 25 mg tablet TAKE 1 TABLET (25 MG TOTAL) BY MOUTH DAILY. 90 tablet 3 5 10/01/19 Active ferrous sulfate 325 mg (65 mg of elemental iron) tabletIndicatio ns:Iron Deficiency Anemia Take 1 tablet (325 mg total) by mouth daily with breakfast Active Active Problems Problem Noted Date Diagnosed Date Persistent atrial fibrillation 03/27/2022 LOVING (dyspnea on exertion) 11/28/2021 Chest discomfort 11/28/2021 CKD (chronic kidney disease) 03/16/2021 JACQUES on CPAP 03/16/2021 Chronic anticoagulation 10/12/2020 Pacemaker 09/17/2020 Overview (09/17/2020): Biotronik Dual Pacemaker-Edora. Dx. First/Second Degree AVB, RBBB. DOI 09/16/2020-[facility]. Biotronik Home Monitor. History of pulmonary embolism 08/16/2020 History of [...] me as needed. Deep vein thrombosis (DVT) 07/01/2020 Overview (07/01/2020): Added automatically from request for surgery [id number] Subjective tinnitus of both ears 06/24/2020 Persistent postural-perceptual dizziness 020 RBBB 05/13/2020 Dizziness 05/13/2020 Multiple subsegmental pulmon bryan emboli without acute cor pulmonale 05/13/2020 Factor V Leiden 05/13/2020 Assessment & Plan (02/13/2024 2:50 PM CDT): Stable continue Eliquis PVC's (premature ventricular contractions) 05/13 Orthostasis 05/13/2020 Resolved Problems Problem Noted Date Diagnosed Date Resolved Date First degree AV block 08/16/20202024 2nd degree AV block 05/13/2020 09/26/19 25 Encounters Date Type Department Care Team Description 12/30/2024 8:45 AM CDT Ancillary Procedure [facility] Cardiology [address] [place] [address] Pacemaker (Primary Dx); First degree AV block; 2nd degree AV block; RBBB; Persistent atrial fibrillation (HCC) 12/09/2024 1:45 PM CDT Office Visit [facility] Medical [facility] Cardiology at [address] [place] [address] Marshall Lauren MD Pacemaker (Primary Dx); Persistent atrial fibrillation (HCC) from Last 3 Months Surgical History Surgery Date Site/Laterality Comments NEPHRECTOMY 07/16/1996 - 07/15/[address] Niño, for kidney cancer KNEE ARTHROSCOPY 30+ years ago VASECTOMY 50 yrs ago Medical History Medical History Date Comments DVT (deep venous thrombosis) 2006 Pulmonary emboli (HCC) 04/2020 Extensive LLE DVT and bilat PEs Factor V Leiden Frequent PVCs History of kidney cancer 1996 s/p nep hrectomy? Irregular heart beat Sleep apnea AV block, 2nd degree Cancer (HCC) right kidney Chronic kidney disease Family History Medical History Relation Name Comments [...] Sign Reading Time Taken Comments Blood Pressure 124/72 12/09/2024 1:47 PM CDT Pulse 66 12/09/2024 1:47 PM CDT Temperature 37 C (98.6 F) 12/11/2023 10:55 AM CDT Respiratory Rate 16 12/09/2024 1:47 PM CDT Oxygen Saturation 96% 09/25/2024 1:41 PM CDT Inhaled Oxygen Concentration - - Weight 99.8 kg (220 lb) 12/09/2024 1:47 PM CDT Height 180.3 cm (5' 11) 12/09/2024 1:47 PM CDT Body Mass Index 30.68 12/09/2024 1:47 PM CDT Plan of Treatment Health Maintenance Due Date Last Done Comments Depression Screening 1945 Hepatitis C Screening 1945 Hepatitis B Screening 1963 Pneumococcal vaccine 65+ (1 of 1 - PCV) 1995 Zoster Vaccine (1 of 2) 1995 Well Visit 65+ 2010 Fall Risk Assessment 07/07/2021 07/07/2020 Influenza Vaccine (#1) 2025 05/21/2018 DTaP/Tdap/Td Vaccine (2 - Td or Tdap) 10/07/2028 Procedures Procedure Name Priority Date/Time Associated Diagnosis Comments DEVICE CHECK - REMOTE Routine 01/08/2025 12:59 PM CDT First degree AV block 2nd degree AV block RBBB Persistent atrial fibrillation (HCC) from Last 3 Months Results * DEVICE CHECK - REMOTE (01/08/2025 12:59 PM CDT) Anatomical Region Laterality Modality Other Narrative 02/23/2025 7:35 AM CDT Biotronik Dual Pacemaker-Edora. Dx. First/Second Degree AVB, RBBB. DOI 09/16/2020-[facility]. Biotronik Home Monitor. Routine VVI CLS Pacemaker Remote. Transmission attached. Battery status: OK , 60% remaining battery life to MIKAELA. Stable lead impedances, pacing and sensing thresholds. Presenting rhythm: CUT ROLL MACHINE OFFBEARER CUT ROLL MACHINE OFFBEARER-73% No AT/AF episodes noted. No Ventricular high rate episodes detected. Medications: Eliquis 5 mg, losartan 25 mg, Toprol-XL 50 mg See scanned report. Office pacemaker follow up: 9 months Biotronik remote f/u 04/07/25. Wei Feliciano RN Marshall Lauren MD CV CARDIAC SERVICES PROC EDURES Final Result from Last 3 Months Insurance [facility] MEDICARE ADVANTAGE MEDICARE [facility] MEDICARE ADVANTAGE Care Teams Banquet Food Server Relationship Specialty Start Date End Date Rukhsana Lee DO PCP - General Family Medicine 04/20/20 Referral, Self Referring Physician Otolaryngology 06/24/20
[2025-03-05 07:43] VITALS: BP 126/82; PULSE 95; RESP 18; TEMP 36.1; O2SAT 99; BMI 30.2
[2025-03-05] MEDS: SIMETHICONE ORAL SUSPENSION 20 MG/0.3 ML 30 ML BOTTLE 1.8 ML PO (07:46)
[2025-03-05] MEDS: LACTATED RINGERS 1,000 ML 150 ML IV CONT (07:59)
--- NOTE | 2025-03-05 08:17 | WPDANESEPPF ---
Anes - Initial Pre Proc Eval Procedure: Operation Date: 03/05/25 09:00 Proposed Procedures p Esophagogastroduodenoscopy - Neo Umana MD Date/Time: 03/05/25 08:17 Surgeon: Neo Umana MD Pre Op Diagnosis: Gastro-esophageal reflux disease without esophagit Patient Data Age: 79 Gender: M Height: 1.8 m Weight: 98.1 kg Last Vital Signs Temp 36.1 C L 03/05/25 07:43 Pulse 95 03/05/25 07:43 Resp 18 03/05/25 07:43 BP 126/82 03/05/25 07:43 Pulse Ox 99 03/05/25 07:43 O2 Del Method Room Air 03/05/25 07:43 Allergies Allergy/AdvReac Type Severity Reaction Status Date / Time No Known Drug Allergies Allergy Unknown Unknown Verified 03/05/25 07:41 Home Medications ?Medication ?Instructions ?Recorded ?Confirmed ?Type acetaminophen 500 mg tablet 500 mg PO Q6H PRN Pain 05/20/20 02/27/25 History (Tylenol Extra Strength) losartan 25 mg tablet 25 mg PO DAILY 01/22/24 03/05/25 History dutasteride 0.5 mg capsule 0.5 mg PO DAILY 06/03/24 03/05/25 History ferrous sulfate 325 mg (65 mg 325 mg PO DAILY 09/23/24 02/27/25 History iron) tablet (Feosol) mecobalamin (vitamin B12) 500 mcg 500 mcg PO DAILY 09/23/24 03/05/25 History chewable tablet apixaban 5 mg tablet (Eliquis) See Rx Instructions .Route 11/06/24 03/05/25 Rx .COMPLEX #180 tabs metoprolol succinate 25 mg 50 mg PO DAILY 12/17/24 02/27/25 History tablet,extended release 24 hr omeprazole 20 mg capsule,delayed 20 mg PO BID #180 caps 12/29/24 03/05/25 Rx release metoprolol succinate 50 mg 50 mg PO DAILY 02/27/25 03/05/25 History tablet,extended release 24 hr triamcinolone acetonide 0.1 % 1 applic topical BID PRN itching 02/27/25 02/27/25 History topical cream Patient hx anesthesia problems: none Family hx anesthesia problems: none Results Review: All pre-operative results and documents have been reviewed as part of the pre-operative evaluation. 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 Gastroesophageal reflux disease Suspected sleep apnea Apnea link in April 2020 showed evidence of severe sleep apnea. He is scheduled for an upcoming outpatient sleep study. Cancer of right kidney (~1996) Status post nephrectomy. Deep vein thrombosis of left lower limb 2006 and 2019. Benign prostatic hyperplasia Surgical History Surgical History S/P cardiac pacemaker procedure History of arthroscopy of right knee History of right nephrectomy (1996) For renal cell carcinoma. Family History Family History Grandparent Hypertension Family history of coronary artery disease Mother Family history of elevated blood lipids Pacemaker Father Family history of cardiovascular disease Family history of coronary artery disease Sibling Cerebrovascular accident Family history of lung cancer Family history of coronary artery disease Other Acute myocardial infarction Social History Social History Social History: The patient is lives with his in [place]. They have 3 daughters. He has a rescue dog at home named Santiago and they typically walk several miles a day together. 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 He is a lifelong nonsmoker and denies alcohol and illicit substance abuse. He designates his , Rbua, as his surrogate decision maker and he wishes to be a full code. Smoking status: Never smoker Alcohol intake: never Substance use: never Substance use type: does not use Lack of Transportation: No Lack of Food: Never True Current Housing: I Have Housing Concerned About Future Housing: No Difficulty Paying Gas/Electric Bills: No Difficulty Paying for Meds: No Currently Unemployed: No Education: Master's Degree or Higher Difficulty w/ Childcare or Family Care: No Living arrangements: with family Additional living arrangements comments: Occupation/Education: retired Gender identity (if verbalized by the patient): Male Sexual Orientation (if Verbalized by the Patient): Straight or Heterosexual Spiritual care concerns: No Agree to blood products: Yes Anes - Eval Final PreProcedure Day of Procedure 03/05/25 08:17 Patient weight: obese Heart: regular rate and rhythm Lungs: clear to auscultation Airway: Mallampati scale class II Neurological: alert and oriented Last oral intake: >/= 8 hours ASA classification: IV Emergent: no Anesthetic plan: proceed Anesthesia type and monitoring: general GIVS and standard monitoring Results Review: All pre-operative results and documents have been reviewed as part of the pre-operative evaluation. Informed Consent: The patient's anesthetic plan and its attendant risks and benefits were discussed with the patient/family/POA. Questions were solicited and answers provided to the satisfaction of the patient/family/POA.
--- NOTE | 2025-03-05 08:45 | PM.IMHP ---
H&P: HPI History of Present Illness Date/Time: 03/05/25 08:45 Chief Complaint: Epigastric pain Narrative: the patient is here for EGD. He has been having episodes of moderate to severe epigastric pain, mainly associated with some exercise. he denies dysphagia, nausea, vomiting, unintentional weight loss, hematemesis or melena. 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 Gastroesophageal reflux disease Suspected sleep apnea Apnea link in April 2020 showed evidence of severe sleep apnea. He is scheduled for an upcoming outpatient sleep study. Cancer of right kidney (~1996) Status post nephrectomy. Deep vein thrombosis of left lower limb 2006 and 2019. Benign prostatic hyperplasia Surgical History Surgical History S/P cardiac pacemaker procedure History of arthroscopy of right knee History of right nephrectomy (1996) For renal cell carcinoma. Family History Family History Grandparent Hypertension Family history of coronary artery disease Mother Family history of elevated blood lipids Pacemaker Father Family history of cardiovascular disease Family history of coronary artery disease Sibling Cerebrovascular accident Family history of lung cancer Family history of coronary artery disease Other Acute myocardial infarction Social History Social History Social History: The patient is lives with his in [place]. They have 3 daughters. He has a rescue dog at home named Santiago and they typically walk several miles a day together. 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 He is a lifelong nonsmoker and denies alcohol and illicit substance abuse. He designates his , Ruba, as his surrogate decision maker and he wishes to be a full code. Smoking status: Never smoker Alcohol intake: never Substance use: never Substance use type: does not use Lack of Transportation: No Lack of Food: Never True Current Housing: I Have Housing Concerned About Future Housing: No Difficulty Paying Gas/Electric Bills: No Difficulty Paying for Meds: No Currently Unemployed: No Education: Master's Degree or Higher Difficulty w/ Childcare or Family Care: No Living arrangements: with family Additional living arrangements comments: Occupation/Education: retired Gender identity (if verbalized by the patient): Male Sexual Orientation (if Verbalized by the Patient): Straight or Heterosexual Spiritual care concerns: No Agree to blood products: Yes Meds Home Medications and Allergies Home Medications ?Medication ?Instructions ?Recorded ?Confirmed ?Type acetaminophen 500 mg tablet 500 mg PO Q6H PRN Pain 05/20/20 02/27/25 History (Tylenol Extra Strength) losartan 25 mg tablet 25 mg PO DAILY 01/22/24 03/05/25 History dutasteride 0.5 mg capsule 0.5 mg PO DAILY 06/03/24 03/05/25 History ferrous sulfate 325 mg (65 mg 325 mg PO DAILY 09/23/24 02/27/25 History iron) tablet (Feosol) mecobalamin (vitamin B12) 500 mcg 500 mcg PO DAILY 09/23/24 03/05/25 History chewable tablet apixaban 5 mg tablet (Eliquis) See Rx Instructions .Route 11/06/24 03/05/25 Rx .COMPLEX #180 tabs metoprolol succinate 25 mg 50 mg PO DAILY 12/17/24 02/27/25 History tablet,extended release 24 hr omeprazole 20 mg capsule,delayed 20 mg PO BID #180 caps 12/29/24 03/05/25 Rx release metoprolol succinate 50 mg 50 mg PO DAILY 02/27/25 03/05/25 History tablet,extended release 24 hr triamcinolone acetonide 0.1 % 1 applic topical BID PRN itching 02/27/25 02/27/25 History topical cream Allergies Allergy/AdvReac Type Severity Reaction Status Date / Time No Known Drug Allergies Allergy Unknown Unknown Verified 03/05/25 07:41 Vital Signs Vital Signs - 24 hr 03/05/25 07:43 Temperature 97 F L Pulse Rate 95 Respiratory Rate 18 Blood Pressure 126/82 Pulse Oximetry 99 Oxygen Delivery Room Air Exam Const: General: cooperative and healthy appearing Resp: Effort & Inspection: normal respiratory effort and able to speak in complete sentences Auscultation: clear to auscultation bilaterally Cardio: Rate: regular rate Rhythm: regular rhythm GI: Inspection: normal to inspection GI Palp: No No hepatosplenomegaly present Auscultation: normal bowel sounds Rectal Exam: deferred Skin: General skin exam: normal color Psych: Appearance: grossly normal Mental Status: mental status grossly normal Assessment and Plan Assessment and plan (1) Gastroesophageal reflux disease without esophagitis: Code(s): K21.9 - Gastro-esophageal reflux disease without esophagitis Status: Chronic Assessment and Plan: The patient is deemed a good candidate for the procedure. Consent signed. Will proceed.
--- NOTE | 2025-03-05 08:57 | S_PTH ---
PATIENT: Jose Baxter LOC: [facility] U#:[id number] AGE/SX: 79/M ROOM: RE03/05/[address]: Neo Umana MD : 1945 BED: DIS: 03/05/2025 SPEC #: [id number] RECD: 03/05/25 11:46 STATUS: NANCY RE #: [id number] NEETU: 03/05/25 08:[address]: Neo Umana DEPT: [facility] Surgical RECD BY: Fadumo Cason ENTERED: 03/05/25 11:47 SP TYPE: Surgical OTHR DR: Huma Hunt, DORYS Tissues: A - Gastric Biopsy B - Gastric Biopsy C - Gastric Biopsy Procedures: Hematoxylin and Eosin Stain Gross and Microscopic Level 4 H.Pylori
[2025-03-05 09:05] VITALS: BP 87/53; PULSE 78; RESP 22; O2SAT 95
[2025-03-05 09:15] VITALS: BP 105/57; PULSE 85; RESP 22; O2SAT 100
== END 2025-03-05 09:35 | disposition home or self-care (01) ==
PROVIDERS: PCP Nurse Practitioner; Referring Provider Nurse Practitioner Family; Visit Provider Internal Medicine Gastroenterology
PROC: 0DJ08ZZ Inspection of Upper Intestinal Tract, Via Natural or Artificial Opening Endoscopic (ICD-10-PCS; CPT 43239; principal; 2025-03-05 09:00)
DX: K21.9 Gastro-esophageal reflux disease without esophagitis (principal); K29.50 Unspecified chronic gastritis without bleeding; K25.7 Chronic gastric ulcer without hemorrhage or perforation; K44.9 Diaphragmatic hernia without obstruction or gangrene; K31.89 Other diseases of stomach and duodenum; N18.30 Chronic kidney disease, stage 3 unspecified; N40.0 Benign prostatic hyperplasia without lower urinary tract symptoms; D68.51 Activated protein C resistance; E66.9 Obesity, unspecified; Z68.30 Body mass index [BMI] 30.0-30.9, adult; Z79.01 Long term (current) use of anticoagulants; Z98.890 Other specified postprocedural states; Z90.5 Acquired absence of kidney; Z95.0 Presence of cardiac pacemaker; Z86.718 Personal history of other venous thrombosis and embolism; Z85.528 Personal history of other malignant neoplasm of kidney; Z80.1 Family history of malignant neoplasm of trachea, bronchus and lung; Z82.49 Family history of ischemic heart disease and other diseases of the circulatory system
CPT/HCPCS: 43239; 88305; 88342; J2003; J2704; J7120

== ENCOUNTER 2025-06-16 02:56 | Day surgery (SDC) | payer MEDICARE, SELFPAY ==
[2025-06-09 12:58] VITALS: BMI 29.2
--- NOTE | 2025-06-09 13:07 | PC.NURSE ---
Spoke with patient regarding medication Eliquis. Patient verbalizes understanding that the last dose is to be taken on 06/12/25 and the Endoscopist will instruct them when to restart after the procedure.
--- OUTSIDE RECORDS SUMMARY | 2025-06-16 02:58 | XMS_ITS | Data Portability ---
Author Organization [place] - [facility] OFFICE Address [address] [place] [address] Care Team Providers Care Supervisor Testing Name Role Phone CRISTINO LOVETT Primary Care Provider CRISTINO LOVETT Referring Provider Assessment No assessment recorded. Plan of Treatment Reminders Order Date Submit Date Provider Last Modified By Organization Details Last Modified Time Details Appointments None recorded. Lab None recorded. Referral None recorded. Procedures None recorded. Surgeries None recorded. Imaging electrocar diogram 2019 [email or web address] Not available 0 08:38:46 Medication Orders aspirin 81 mg tablet,del ayed release 2019 [facility] [address] [facility], [facility] [place], [address], 0 15:20:02 Patient TargetsNo targets recorded. Patient Instructions Encounter Date Encounter Id Patient Instructions Last Modified By Organization Details Last Modified Time 05/24/2020 [id number] Exercise advised Low cholesterol diet advised Low sodium diet advised [email or web address] Not available 05/24/2020 14:25:07 Scribed by Jennifer Patino [facility]- [email or web address] Not available 05/24/2020 14:25:10 06/07/2020 [id number] Exercise advised Low cholesterol diet advised Low sodium diet advised [email or web address] Not available 06/07/2020 15:13:25 Scribed by Jennifer VELASQUEZP- [email or web address] Not available 06/07/2020 15:13:34 Reason for Referral None Reported. Results Created Date Observation Date Name Description Value Unit Range Abnormal Flag Note LastModifiedBy Organization Detail LastModifiedTime 05/06/2005/05/2020 US, echoc ardio gram No observ ation record ed. [email or web address] Not Available 2019 12:31:35 05/06/2005/05/2020 US, echoc ardio gram No observ ation record ed. [address], [place], [address], 05/07/2020 09:04:57 05/25/2005/04/2020 CT, angio gram, chest [...] (PROC ) No observ ation record ed. [email or web address] Not Available 2019 10:33:17 06/22/20 20 06/16/2020 angio gram (PROC ) No observ ation record ed. [email or web address] Not Available 2019 08:52:08 Result Notes None recorded. Problems Name Problem SNOMED Code Status Onset Date Resolution Date Notes Provider Name and Address Organization Details Recorded Time Sleep apnea 90348977 Active Cristina Brianne null, [place] - [facility] 0 09:34:31 Pulmonary embolism 95335675 Active Cristina [place], [place] - [facility] 0 09:34:42 Deep venous thrombosis 169235709 Active Cristina [place], [place] - [facility] 0 09:34:49 Gastroesophage al reflux disease 257824105 Active Cristina Brianne null, [place] - [facility] 0 09:34:58 Atrioventricul ar block 994202424 Active Cristina bauer [facility] 0 09:35:18 General unsteadiness 085506487 Active Cristina bauer, [facility] 0 09:35:43 Problem Notes None recorded. Medical Equipment None Reported. [...] (BMI) Body weight Heart rate Oxygen saturation Systolic And Diastolic Provider Name and Address Organization Details Last Updated DateTime 0 97.6 [degF] 180.34 cm 30.6 kg/m2 90799.5 3 g 70 /min 97 % 132/80 mm[Hg] Cristina Decker [facility] 0 14:49:20 Date Recorded Body height Body mass index (BMI) Body weight Heart rate Oxygen saturation Body temperature Systolic And Diastolic Provider Name and Address Organization Details Last Updated DateTime 0 180.34 cm 31.2 kg/m2 288544. 61 g 58 /min 96 % 93.6 [degF] 120/70 mm[Hg] Jennifer Patino [employer] [facility] 0 15:08:44 Social History Question Answer Notes LastModified by Hartman Wright Details LastModified Time Tobacco Smoking Status Never Smoker Cristina bauer, [facility] 05/24/2020 14:44:50 What Is Your Level Of Caffeine Consumption? None [email or web address] Information not available 05/24/2020 How Much Tobacco Do You Chew? None Information not available 05/24/2020 What Type Of Diet Are You Following? REGULAR [email or web address] Information not available 05/24/2020 Which Illicit Or Recreational Drugs Have You Used? None [email or web address] Information not available 05/24/2020 Live Alone Or With Others? With Others [email or web address] Information not available 05/24/2020 Marital Status Informatio n not available 05/24/2020 What Was The Date Of Your Most Recent Tobacco Screening? 05/24/2020 [email or web address] Information not available 06/06/2020 How Many Children Do You Have? 3 [email or web address] Information not available 05/24/2020 How Much Tobacco Do You Smoke? No [email or web address] Information not available 05/24/2020 General Stress Level Medium [email or web address] Information not available 05/24/2020 How Many Years Have You Smoked Tobacco? 0 Information not available 06/15/2020 Sex: Unknown Functional Status Question Answer Note LastModified by [employer] Details LastModified Time What is your level of alcohol consumption? None [email or web address] Information not available 05/24/2020 Do you or have you ever used smokeless tobacco? Never used smokeless tobacco [email or web address] Information not available 05/24/2020 What is your occupation? retired Information not available 05/24/2020 Do you or have you ever used e-cigarettes or vape? Never used electronic cigarettes Information not available 05/24/2020 What is your exercise level? Occasional [email or web address] Information not available 05/24/2020 Mental Status None recorded. Family History Relationship Description Onset Age of this Age Resolved Age Notes LastModified by Organization Details LastModified Time Sister Cerebrovascu lar accident [email or web address] Not available 14:44:11 Mother Blood coagulation disorder [email or web address] Not available 05/24 14:44:45 Maternal Grandfather Blood coagulation disorder [email or web address] Not available 05/24 14:44:45 Medical History Condition Response Deep Vein Thrombosis Y Sleep Apnea Y GERD/Reflux Y Past Encounters Encounter ID Performer Location Encounter Start Date Encounter Closed Date Diagnosis/Indication Diagnosis SNOMED-CT Code Diagnosis ICD10 Code Diagnosis IMO Codes Diagnosis Note [id number] Bharathi Copeland MD [facility] [address] [place] [id number] 05/24/2020 14:30:25 05/24/2020 15:20:42 Follow-up visit 840384358 Z09 Deep venou s thrombosis 116997777 I82.409 on Eliquis 5mg BID, will add ASA 81mg daily 05/24/2020 .Repeat venous doppler at [facility] showed persistent DVTs in CFV and GSVConside r IVUS Pulmonary embolism 27932 003 I26.99 on Eliquis and ASA as aboveDenie s dyspneaWil l need follow-up chest CTA at subsequent visit Atrioventr icular block 616833789 I44.30 in NSR 05/24/2020 Dizziness likely 2/2 inner ear issue, recommend follow-up with ENT.Will continue to closely monitor and consider PPM if appropriat e Obstructiv e sleep apnea syndrome 86875434 G47.33 Positive sleep study while hospitaliz edNeeds set up with CPAP [id number] Bharathi Copeland MD [facility] [address] [place] [address] 06/07/2020 15:02:57 06/07/2020 16:06:32 Deep venous thrombosis 480665850 I82.409 on Eliquis 5mg BID and ASA 81mgRepeat venous doppler 05/04/2020 at [facility] showed persistent DVTs in CFV and GSVWill plan for IVUS Pulmonary embolism 97687 003 I26.99 on Eliquis and ASA as aboveDenie s dyspneaWil l need follow-up chest CTA at subsequent visit Atrioventr icular block 106816456 I44.30 in NSR 05/24/2020 Dizziness likely 2/2 inner ear issue, recommend follow-up with ENT.Will continue to closely monitor and consider PPM if appropriat e Obstructiv e sleep apnea syndrome 95661645 G47.33 Will have CPAP setup with PCP Health Concerns Section Related Observation LastModified by Organization Detai ls LastModified Time None Recorded Concern Status LastModified by Organization Details LastModified Time None Recorded Advance Directives Directive None Recorded Payers Insurance Date Sequence Insurance Name Policy Number Policy Talavera Covered Member ID Talavera Member ID Guarantor Name 06/25/2020 2 [employer] (MEDICARE SUPPLEMENT) Jose Liang Sahil [id number] Jose Liang Sahil 06/15/2020 1 [place] Jose Liang Sahil [id number] Jose Liang Sahil Notes Date Note Type Note Provider Name and Address Organization Details Recorded Time 05/24/2020 text/html 05/24/20 74 years-old Male with h/o DVT (2006), Factor V Leiden, frequent PVCs, JACQUES, and CKD was referred for cardiac evaluation from [facility]. He had DVT with bilateral [...] from this visit, or from the past: 05/05/20202817-hmhb-Ea m:1.Right ventricular chamber dimension is upper limits [...] systolic function is normal. Bharathi Copeland MD [address] [place], [address], [facility] 05/24/2020 15:20:40 06/07/2020 [...] complexes. Left axis deviation. RBBB. Abnormal EKG 05/05/20206133-eoqf-Yk m:1.Right ventricular chamber dimension is upper limits [...] the ED on 05/04/20 Bharathi Copeland MD [address] [place], [address], [facility] 06/07/2020 16:06:29
--- OUTSIDE RECORDS SUMMARY | 2025-06-16 02:58 | XMS_ITS | Encounter Summary ---
Author Organization [facility] Healthcare Address [address] [place] [address] Care Team Providers Care [employer] Combination Teacher Name Role Phone Rukhsana Lee DO Primary Care Provider [phone] Referral, Self Unavailable Unavailable Encounter Details Date Type Department Care Team ([facility] st Contact Info) Description 06/15/2025 Telephone [facility] Medical Group Cardiology [address] [facility] [address] [facility] [address] [place] [address] Marshall Lauren MD [address] [facility] [address] [place] [address] Social History Tobacco Use Types Packs/Day Years [...] on file documented as of this encounter Miscellaneous Notes * Telephone Encounter - Aretha Lazaro RN - 06/15/2025 4:05 PM [employer]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 OL BUS MECHANIC * Telephone Encounter - Amanda Mandujano - 06/15/2025 1:41 PM CST Tanja from [facility] calling to get an update on the below message. Both Rubina and Ramón are off andthe pt is seen tomorrow 06/16. Please advise. Thank you. Contact [phone] OL BUS MECHANIC * Telephone Encounter - Zainab Tramemll - 06/15/2025 9:54 AM CST Tanja from [facility] called in and states that she is needing to have the patients CRMD form sent to them. Patient is scheduled for an upcoming procedure. Please advise. Thank you. Contact : [phone] OL BUS MECHANIC documented in this encounter Plan of Treatment Not on file documented as of this encounter Visit Diagnoses Not on filedocumented in this encounter Care Teams [employer] Comb[employer] Teacher Relationship Specialty Start Date End Date Rukhsana Lee DO PCP - General Family Medicine 04/20/20 Referral, Self Referring Physician Otolaryngology 06/24/20 documented as of this encounter
--- OUTSIDE RECORDS SUMMARY | 2025-06-16 02:58 | XMS_ITS | Clinical Summary ---
Author Organization [facility] Sunil Pendleton Address [address] [place] [address] Care Team Providers Care Tobacco Cloth Reclaimer Name Role Phone Rukhsana Lee DO Primary Care Provider [phone]- [phone] Allergies No known active allergies Medications Eliquis 5 mg tablet Take 1 Tablet by mouth 2 times daily. 05/14/2024 Active aspirin (ECOTRIN EC) 81 mg Tablet, Delayed Release (E.C.) Take 81 mg by mouth daily. Active dutasteride (AVODART) 0.5 mg Capsule Take 0.5 mg by mouth daily. Active losartan (COZAAR) 25 mg tablet Take 25 mg by mouth daily. Active tamsulosin (FLOMAX) 0.4 mg capsule Take 0.4 mg by mouth daily. 07/04/2024 Active metoprolol succinate (TOPROL XL) 25 mg Extended Release 24 hour tablet Take 25 mg by mouth daily. 05/26/2024 Active Problems No known active problems Encounters Date Type Department Care Team Description 05/13/2025 External Device Data STL ABSTRACTION Provider, Abstract 05/12/2025 External Device Data STL ABSTRACTION Provider, Abstract 05/06/2025 External Device Data STL ABSTRACTION Provider, Abstract 05/05/2025 External Device Data STL ABSTRACTION Provider, Abstract 03/31/2025 External Device Data STL ABSTRACTION Provider, Abstract 03/31/2025 External Device Data STL ABSTRACTION Provider, Abstract [...] on file Legal Sex Male 10:08 AM CIGAR BINDER Gender Identity Not on file Sexual Orientation Not on file Last Filed Vital Signs Vital Sign Reading Time Taken Comments Blood Pressure 102/68 03/04/2025 12:58 PM CDT Pulse 82 03/04/2025 12:58 PM CDT Temperature 36.5 C (97.7 F) 03/04/2025 12:58 PM CDT Respiratory Rate 15 09/01/2024 1:01 PM CIGAR BINDER Oxygen Saturation 95% 03/04/2025 12:58 PM CDT Inhaled Oxygen Concentration - - Weight 104.3 kg (230 lb) 03/04/2025 12:58 PM CDT Height 182.9 cm (6') 03/04/2025 12:58 PM CDT Body Mass Index 31.19 03/04/2025 12:58 PM CDT Plan of Treatment Upcoming Encounters Date Type Department Care Team (Late st Contact Info) Description 09/09/2025 1:00 PM CIGAR BINDER Office Visit [facility] Oncology and Hematology - [place] [address] [place] [address] [facility] [address] [place] [address] Gregorio Trujillo MD [address] [facility] [address] [place] [address] Health Maintenance Due Date Last Done Comments ZOSTER VACCINE (2 of 3) 01/23/2011 11/28/2010 RSV VACCINE (60+ or ) (1 - 1-dose 75+ series) 2020 INFLUENZA VACCINE (#1) 2025 , 04/24/2020, 05/21/2018, Additional history exists DTAP/TDAP/TD VACCINES (3 - T d or Tdap) 10/07/2028 10/07/2018, 04/09/2008 PNEUMOCOCCAL VACCINE 50+ YEARS Completed 09/02/2015 , 06/24/2010 Insurance [id number] [id number] Care Teams Tobacco Cloth Reclaimer Relationship Specialty Start Date End Date Rukhsana Lee DO [address] [facility] [address] [place] [id number] PCP - General Family Practice 07/25/24
--- OUTSIDE RECORDS SUMMARY | 2025-06-16 02:58 | XMS_ITS | Clinical Summary ---
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 90 tablet 3 5 10/01/19 26 Active ferrous sulfate 325 mg (65 mg of elemental iron) tabletIndicatio ns:Iron Deficiency Anemia Take 1 tablet (325 mg total) by mouth daily with breakfast Active omeprazole (PriLOSEC) 40 mg capsule Take by mouth daily 5 Active Active Problems Problem Noted Date Diagnosed Date Persistent atrial fibrillation 03/27/2022 LOVING (dyspnea on exertion) 11/28/2021 Chest discomfort 11/28/2021 CKD (chronic kidney disease) 03/16/2021 JACQUES on CPAP 03/16/2021 Chronic anticoagulation 10/12/2020 Pacemaker 09/17/2020 Overview (09/17/2020): Biotronik Dual Pacemaker-Edora. Dx. First/Second Degree AVB, RBBB. DOI 09/16/2020-[facility]. Biotronik Home Monitor. History [...] (07/01/2020): Added automatically from request for surgery [id number] Subjective tinnitus of both ears 06/24/2020 Persistent [...] Encounters Date Type Department Care Team Description 06/15/2025 Telephone [facility] Cardiology [address] [place] [address] Marshall Lauren MD 05/26/2025 2:30 PM DIGITAL MARKETING STRATEGIST Office Visit [facility] Cardiology at [address] [place] [id number] Marshall Lauren MD Persistent atrial fibrillation (HCC) (Primary Dx); Pacemaker; Factor V Leiden 04/07/2025 8:15 AM CDT Ancillary Procedure [facility] Cardiology [address] [facility] [address], [place] [address] 2nd degree AV block; First degree AV block; Pacemaker; Persistent atrial fibrillation (HCC) from Last 3 [...] Sign Reading Time Taken Comments Blood Pressure 122/84 05/26/2025 2:25 PM DIGITAL MARKETING STRATEGIST Pulse 93 05/26/2025 2:25 PM DIGITAL MARKETING STRATEGIST Temperature 37 C (98.6 F) 12/11/2023 10:55 AM CDT Respiratory Rate 16 12/09/2024 1:47 PM CDT Oxygen Saturation 95% 05/26/2025 2:25 PM DIGITAL MARKETING STRATEGIST Inhaled Oxygen Concentration - - Weight 100.3 kg (221 lb 1.6 oz) 05/26/2025 2:25 PM DIGITAL MARKETING STRATEGIST Height 180.3 cm (5' 11) 05/26/2025 2:25 PM DIGITAL MARKETING STRATEGIST Body Mass Index 30.84 05/26/2025 2:25 PM DIGITAL MARKETING STRATEGIST Plan of Treatment Health Maintenance Due Date Last Done Comments Depression Screening 1945 Hepatitis B Screening 1963 Well Visit 65+ 2010 Zoster Vaccine (2 of 3) 01/23/2011 11/28/2010 Fall Risk Assessment 07/07/2021 07/07/2020 Influenza Vaccine (#1) 2025 , 04/24/2020, 05/21/2018, Additional history exists DTaP/Tdap/Td Vaccine (3 - Td or Tdap) 10/07/2028 10/07/2018, 04/09/2008 Pneumococcal vaccine 65+ Completed 09/02/2015, 06/15 Procedures Procedure Name Priority Date/Time Associated Diagnosis Comments DEVICE CHECK - REMOTE Routine 04/07/2025 2:35 PM CDT 2nd degree AV block First degree AV block Pacemaker Persistent atrial fibrillation (HCC) from Last 3 Months Results * DEVICE CHECK - REMOTE (04/07/2025 2:35 PM CDT) Anatomical Region Laterality Modality Other Narrative 05/08/2025 12:31 PM CDT Biotronik Dual Pacemaker-Edora. Dx. First/Second Degree AVB, RBBB. DOI 09/16/2020-[facility]. Wisrronik Home Monitor. Routine VVI Pacemaker remote. Normal device function. Battery function-Ok, 60% remaining battery life to MIKAELA. Appropriate lead measurements. Presenting rhythm- VS-SAMPLE BODY BUILDER. SAMPLE BODY BUILDER-76%. No ventricular high rate episodes noted. Medications; Eliquis for DVT/PE, ASA 81 mg, Toprol XL. See scanned report. Office pacemaker f/u due 3-6 months. Biotronik remote f/u 07/07/2025. Rubina Flower, JULIANE Marshall Lauren MD [facility] PROC EDURES Final Result from Last 3 Months Insurance [employer] MEDICARE ADVANTAGE MEDICARE [facility] MEDICARE ADVANTAGE Care Teams Reinforcing Steel Machine Operator Relationship Specialty Start Date End Date Rukhsana Lee DO PCP - General Family Medicine 04/20/20 Referral, Self Referring Physician Otolaryngology 06/24/20
[2025-06-16 07:15] VITALS: BP 131/81; PULSE 91; RESP 16; TEMP 36.4; O2SAT 100; BMI 30.5
--- NOTE | 2025-06-16 07:17 | WPDANESEPPF ---
Anes - Initial Pre Proc Eval Procedure: Operation Date: 06/16/25 08:30 Proposed Procedures p Esophagogastroduodenoscopy EGD - Neo Umana MD Date/Time: 06/16/25 07:17 Surgeon: Neo Umana MD Pre Op Diagnosis: Chronic gastric ulcer w/o hemorrhage or perforatio Patient Data Age: 80 Gender: M Height: 1.83 m Weight: 98 kg Allergies Allergy/AdvReac Type Severity Reaction Status Date / Time No Known Drug Allergies Allergy Unknown Unknown Verified 06/16/25 07:14 Home Medications ?Medication ?Instructions ?Recorded ?Confirmed ?Type acetaminophen 500 mg tablet 500 mg PO Q6H PRN Pain 05/20/20 06/09/25 History (Tylenol Extra Strength) losartan 25 mg tablet 25 mg PO DAILY 01/22/24 06/16/25 History dutasteride 0.5 mg capsule 0.5 mg PO DAILY 06/03/24 06/16/25 History ferrous sulfate 325 mg (65 mg 325 mg PO DAILY 09/23/24 06/16/25 History iron) tablet (Feosol) mecobalamin (vitamin B12) 500 mcg 500 mcg PO DAILY 09/23/24 06/16/25 History chewable tablet metoprolol succinate 50 mg 50 mg PO DAILY 02/27/25 06/16/25 History tablet,extended release 24 hr triamcinolone acetonide 0.1 % 1 applic topical BID PRN itching 02/27/25 06/09/25 History topical cream apixaban 5 mg tablet (Eliquis) See Rx Instructions .Route 05/07/25 06/16/25 Rx .COMPLEX #180 tabs omeprazole 40 mg capsule,delayed See Rx Instructions .Route 06/08/25 06/16/25 Rx release .COMPLEX #90 caps Patient hx anesthesia problems: none Family hx anesthesia problems: none Results Review: All pre-operative results and documents have been reviewed as part of the pre-operative evaluation. 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 Gastroesophageal reflux disease Suspected sleep apnea Apnea link in April 2020 showed evidence of severe sleep apnea. He is scheduled for an upcoming outpatient sleep study. Cancer of right kidney (~1996) Status post nephrectomy. Deep vein thrombosis of left lower limb 2006 and 2019. Benign prostatic hyperplasia Surgical History Surgical History S/P cardiac pacemaker procedure History of arthroscopy of right knee History of right nephrectomy (1996) For renal cell carcinoma. Family History Family History Grandparent Hypertension Family history of coronary artery disease Mother Family history of elevated blood lipids Pacemaker Father Family history of cardiovascular disease Family history of coronary artery disease Sibling Cerebrovascular accident Family history of lung cancer Family history of coronary artery disease Other Acute myocardial infarction Social History Social History Social History: The patient is lives with his in [place]. They have 3 daughters. He has a rescue dog at home named Santiago and they typically walk several miles a day together. 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 He is a lifelong nonsmoker and denies alcohol and illicit substance abuse. He designates his , Ruba, as his surrogate decision maker and he wishes to be a full code. 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[employer] Gender identity (if verbalized by the patient): Male Sexual Orientation (if Verbalized by the Patient): Straight or Heterosexual Spiritual care concerns: No Agree to blood products: Yes Anes - Eval Final PreProcedure Day of Procedure 06/16/25 07:17 Patient weight: obese Heart: regular rate and rhythm Lungs: clear to auscultation Airway: Mallampati scale class II Neurological: alert and oriented Last oral intake: >/= 8 hours ASA classification: III Emergent: no Anesthetic plan: proceed Anesthesia type and monitoring: general GIVS and standard monitoring Results Review: All pre-operative results and documents have been reviewed as part of the pre-operative evaluation. Informed Consent: The patient's anesthetic plan and its attendant risks and benefits were discussed with the patient/family/POA. Questions were solicited and answers provided to the satisfaction of the patient/family/POA.
[2025-06-16] MEDS: LACTATED RINGERS 1,000 ML 150 ML IV CONT (07:25)
[2025-06-16] MEDS: SIMETHICONE ORAL SUSPENSION 20 MG/0.3 ML 30 ML BOTTLE 1.8 ML PO (08:14)
--- NOTE | 2025-06-16 08:23 | PM.IMHP2 ---
H&P: HPI History of Present Illness Date/Time: 06/16/25 08:23 Chief Complaint: Gastric ulcer Narrative: On 03/05/2025 the patient underwent an EGD for upper abdominal complaints. A benign-looking gastric ulcer was seen and treated. Biopsy showed absence of H pylori. He is now for his follow-up EGD to verify ulcer healing. 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 Gastroesophageal reflux disease Suspected sleep apnea Apnea link in April 2020 showed evidence of severe sleep apnea. He is scheduled for an upcoming outpatient sleep study. Cancer of right kidney (~1996) Status post nephrectomy. Deep vein thrombosis of left lower limb 2006 and 2019. Benign prostatic hyperplasia Surgical History Surgical History S/P cardiac pacemaker procedure History of arthroscopy of right knee History of right nephrectomy (1996) For renal cell carcinoma. Family History Family History Grandparent Hypertension Family history of coronary artery disease Mother Family history of elevated blood lipids Pacemaker Father Family history of cardiovascular disease Family history of coronary artery disease Sibling Cerebrovascular accident Family history of lung cancer Family history of coronary artery disease Other Acute myocardial infarction Social History Social History Social History: The patient is lives with his in [place]. They have 3 daughters. He has a rescue dog at home named Santiago and they typically walk several miles a day together. 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 He is a lifelong nonsmoker and denies alcohol and illicit substance abuse. He designates his , Ruba, as his surrogate decision maker and he wishes to be a full code. 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[employer] Gender identity (if verbalized by the patient): Male Sexual Orientation (if Verbalized by the Patient): Straight or Heterosexual Spiritual care concerns: No Agree to blood products: Yes Meds Home Medications and Allergies Home Medications ?Medication ?Instructions ?Recorded ?Confirmed ?Type acetaminophen 500 mg tablet 500 mg PO Q6H PRN Pain 05/20/20 06/09/25 History (Tylenol Extra Strength) losartan 25 mg tablet 25 mg PO DAILY 01/22/24 06/16/25 History dutasteride 0.5 mg capsule 0.5 mg PO DAILY 06/03/24 06/16/25 History ferrous sulfate 325 mg (65 mg 325 mg PO DAILY 09/23/24 06/16/25 History iron) tablet (Feosol) mecobalamin (vitamin B12) 500 mcg 500 mcg PO DAILY 09/23/24 06/16/25 History chewable tablet metoprolol succinate 50 mg 50 mg PO DAILY 02/27/25 06/16/25 History tablet,extended release 24 hr triamcinolone acetonide 0.1 % 1 applic topical BID PRN itching 02/27/25 06/09/25 History topical cream apixaban 5 mg tablet (Eliquis) See Rx Instructions .Route 05/07/25 06/16/25 Rx .COMPLEX #180 tabs omeprazole 40 mg capsule,delayed See Rx Instructions .Route 06/08/25 06/16/25 Rx release .COMPLEX #90 caps Allergies Allergy/AdvReac Type Severity Reaction Status Date / Time No Known Drug Allergies Allergy Unknown Unknown Verified 06/16/25 07:14 Vital Signs Vital Signs - 24 hr 06/16/25 07:15 Temperature 97.5 F L Pulse Rate 91 Respiratory Rate 16 Blood Pressure 131/81 Pulse Oximetry 100 Oxygen Delivery Room Air Exam Const: General: cooperative and healthy appearing Resp: Effort & Inspection: normal respiratory effort and able to speak in complete sentences Auscultation: clear to auscultation bilaterally Cardio: Rate: regular rate Rhythm: regular rhythm GI: Inspection: normal to inspection GI Palp: No No hepatosplenomegaly present Auscultation: normal bowel sounds Rectal Exam: deferred Skin: General skin exam: normal color Psych: Appearance: grossly normal Mental Status: mental status grossly normal Assessment and Plan Assessment and plan (1) Gastric ulcer: Code(s): K25.9 - Gastric ulcer, unspecified as acute or chronic, without hemorrhage or perforation Status: Acute Assessment and Plan: The patient is deemed a good candidate for the procedure. Consent signed. Will proceed. Prior Studies I have reviewed the following patient records and this information was taken into consideration when formulating the assessment and plan.: previous labs, previous ER visits, previous hospitalizations and previous clinic visits
[2025-06-16 08:35] VITALS: BP 99/63; PULSE 72; RESP 24; O2SAT 93
[2025-06-16 08:45] VITALS: BP 98/63; PULSE 78; RESP 21; O2SAT 94
[2025-06-16 08:55] VITALS: BP 104/63; PULSE 74; RESP 27; O2SAT 95
== END 2025-06-16 09:22 | disposition home or self-care (01) ==
PROVIDERS: PCP Nurse Practitioner; Referring Provider Internal Medicine Gastroenterology; Visit Provider Internal Medicine Gastroenterology
PROC: 0DJ08ZZ Inspection of Upper Intestinal Tract, Via Natural or Artificial Opening Endoscopic (ICD-10-PCS; CPT 43235; principal; 2025-06-16 08:30)
DX: K31.819 Angiodysplasia of stomach and duodenum without bleeding (principal); K44.9 Diaphragmatic hernia without obstruction or gangrene
CPT/HCPCS: 43235; J2003; J2704; J7120